=== PATIENT | female | born 1955 | race Caucasian/White ===

== ENCOUNTER 2017-11-28 09:16 | Day surgery (SDC) | payer MEDICARE, MEDICAID ==
[2017-11-28] MEDS ORDERED: Lactated Ringers 1,000 ML IV SCH (09:30)
[2017-11-28] MEDS ORDERED: Dexamethasone 4 MG/ML 5 ML MDV IVPUSH ONE (10:30)
[2017-11-28] MEDS ORDERED: Propofol 200 MG/20 ML SDV IV ONE (10:30)
[2017-11-28] MEDS ORDERED: Lidocaine 2% 100 MG/5 ML Syringe IVPUSH ONE (10:30)
[2017-11-28] MEDS ORDERED: Midazolam 1 MG/ML 2 ML SDV IV ONE (10:30)
[2017-11-28] MEDS ORDERED: Ondansetron 4 MG/2 ML SDV IVPUSH ONE (10:30)
[2017-11-28] MEDS ORDERED: fentaNYL 100 MCG/2 ML SDV IV ONE (10:30)
[2017-11-28] MEDS ORDERED: Lidocaine 1% 20 ML MDV INJECT ONE (10:53)
[2017-11-28] MEDS ORDERED: Bupivacaine 0.5% 30 ML SDV INJECT ONE (10:53)
--- NOTE | 2017-11-28 11:17 | PCM.OPNOTE ---
- General Post-Op/Procedure Note Date of Surgery/Procedure: 11/28/17 Operative Procedure(s): exicision of pilar cysts x4 Findings: 4 pilar cysts. 3-1 cm diameter 1-0.5 cm in diameter Pre Op Diagnosis: pilar cyst x4 Post-Op Diagnosis: 4 pilar cysts. 3-1 cm diameter. 1-0.5 cm in diameter Anesthesia Technique: Local (1% lido with epi/0.5% buvipicaine 7 ml), MAC Primary Surgeon: Rao Galaviz Anesthesia Provider: Poncho Wilks Pathology: 4 pilar cysts. 3-1 cm diameter 1-0.5 cm in diameter Complications: None Condition: Good Free Text/Narrative:: see dictation
[2017-11-28 13:45] VITALS: BP 129/69
--- NOTE | 2017-11-28 14:40 | OR ---
DATE OF OPERATION: 11/28/2017 SURGEON: Rao Galaviz MD PROCEDURE PERFORMED: Excision of pilar or trichilemmal cysts. PREOPERATIVE DIAGNOSIS: Pilar or trichilemmal cysts x4. POSTOPERATIVE DIAGNOSIS: Pilar or trichilemmal cysts x4. INDICATIONS FOR PROCEDURE: This is a 62-year-old white female who has a history of 4 trichilemmal cysts; three of them were approximately 1 cm in diameter and one was approximately 0.5 cm. They have been causing her some discomfort. She was offered and accepted excision. We elected to perform it here in the operating room under IV sedation due to the patient's history of anxiety. DESCRIPTION OF OPERATION: After an excellent IV sedation was administered, the patient was prepped and draped in the usual sterile manner. We turned our attention to the first cyst, which was approximately 1 cm in diameter, and this was located on the right side, lateral to the midline, in posterior aspect of the frontal lobe area. The area was incised after injecting with local, and the cyst was removed. Bleeding was controlled with electrocautery. The skin was closed with avelino. Approximately 2 cm inferior and more medial, there was an additional 1 cm cyst. This was infiltrated as well and an incision was made. The cyst and contents were excised. The skin was closed with avelino. An additional 1 cm cyst was then more posterior in the parietal area, to the lateral on the right side. Again, this was roughly 1 cm in diameter. The area was infiltrated with more local. Then, the cyst was excised and passed off the field. In a similar position, on the left side of the scalp, there was a 5-mm cyst that was also infiltrated, incised, and the cyst was removed. The skin was closed with avelino. Bacitracin was applied to the wound. The patient tolerated the procedure well and was taken to Recovery in a good condition. /[id number] /MODL
== END 2017-11-28 12:19 | disposition home or self-care (01) ==
LOC: FB.SDS 09:16
PROVIDERS: ATTEND Surgery
DX: L72.12 Trichodermal cyst (principal); N18.3 Chronic kidney disease, stage 3 (moderate); H54.8 Legal blindness, as defined in USA; E03.9 Hypothyroidism, unspecified; I95.1 Orthostatic hypotension; F41.9 Anxiety disorder, unspecified; Z87.891 Personal history of nicotine dependence; Z79.84 Long term (current) use of oral hypoglycemic drugs; Z79.899 Other long term (current) drug therapy; Z88.8 Allergy status to other drugs, medicaments and biological substances; Z91.012 Allergy to eggs; Z88.1 Allergy status to other antibiotic agents; Z91.040 Latex allergy status; Z91.048 Other nonmedicinal substance allergy status
CPT/HCPCS: 00164; 11420; 11421; 82962; 88304; J1100; J2001; J2250; J2405; J2704; J3010; J3490; J7120

== ENCOUNTER 2019-11-21 21:07 | Emergency (ER) | payer MEDICARE, MEDICAID ==
--- NOTE | 2019-11-21 22:07 | EDM.PDOC ---
ED HPI GENERAL MEDICAL PROBLEM - General Stated Complaint: FEVER Time Seen by Provider: 11/21/19 22:04 Source of Information: Reports: Patient History Limitations: Reports: No Limitations - History of Present Illness INITIAL COMMENTS - FREE TEXT/NARRATIVE: Porsha is a 64 you from [facility] who complains of fever,altered mental status and a rash. the rash is to the lower extremities over a period of 1-2 days. Fever started this afternoon,and she was noted to be delirious at times. No cough or SOB. She has a h/o migraine headaches,organic brain syndrome,panhypopituitarism,seizures, and mental delay. - Related Data Allergies Allergy/AdvReac Type Severity Reaction Status Date / Time metoclopramide HCl Allergy Severe VIOLENT Verified 11/22/19 02:20 [From Reglan] cephalexin monohydrate Allergy Unknown UNKNOWN Verified 11/22/19 02:20 [From Keflex] clobetasol Allergy Unknown Wheezing Verified 11/22/19 02:20 droperidol Allergy Unknown Leg Cramps Verified 11/22/19 02:20 hydroxyzine HCl Allergy Unknown Agitation Verified 11/22/19 02:20 [From Vistaril] hydroxyzine pamoate Allergy Unknown Agitation Verified 11/22/19 02:20 [From Vistaril] naproxen sodium Allergy Unknown Agitation Verified 11/22/19 02:20 [From Anaprox] latex AdvReac Mild Rash Verified 11/22/19 02:20 diphenhydramine HCl AdvReac Unknown Agitation Verified 11/22/19 02:20 [From Benadryl] bandaids Allergy Unknown Rash Uncoded 11/22/19 02:20 eggs Allergy Unknown Nausea and Uncoded 11/22/19 02:20 Vomiting Home Meds: Home Meds ARIPiprazole [Abilify] 20 mg PO DAILY 12/23/12 [History] Cyanocobalamin (Vitamin B12) [Vitamin B12] 250 mcg PO DAILY 12/23/12 [History] Ferrous Sulfate 325 mg PO DAILY 12/23/12 [History] Hydrocortisone [Cortef] 10 mg PO ACBREAKFAST 12/23/12 [History] Hydrocortisone [Cortef] 15 mg PO ACLUNCH 12/23/12 [History] Mirtazapine [Remeron] 45 mg PO BEDTIME 12/23/12 [History] Multivitamin with Minerals [Multiple Vitamin] 1 tab PO DAILY 12/23/12 [History] Potassium Chloride 20 meq PO QID 12/23/12 [History] calcitrioL [Rocaltrol] 0.25 mcg PO DAILY 12/23/12 [History] carBAMazepine [TEGretol XR] 400 mg PO ACBREAKFAST 12/23/12 [History] clonazePAM [Clonazepam] 1.0 mg PO BEDTIME 12/23/12 [History] Carboxymethylcellulose Sodium [Refresh Tears 0.5%] 1 drop EYEBOTH BID 07/15/13 [History] Cholecalciferol (Vitamin D3) [Vitamin D3] 4,000 units PO DAILY 07/15/13 [History] Topiramate [Topamax] 100 mg PO BEDTIME 07/15/13 [History] Ibuprofen 400 mg PO Q6H PRN 04/10/14 [History] fentaNYL [Duragesic] 12 mcg TRDERM Q72H 15 Days patch 04/13/14 [Rx] Meclizine HCl 12.5 mg PO TID PRN 08/18/14 [History] Rizatriptan [Maxalt FAMILY COUNSELOR] 10 mg PO ASDIRECTED PRN 08/18/14 [History] Aspirin [Adult Low Dose Aspirin EC] 81 mg PO DAILY 09/22/15 [History] Levothyroxine 125 mcg PO ACBREAKFAST 09/22/15 [History] carBAMazepine [TEGretol XR] 200 mg PO 1200 11/27/17 [History] Acetaminophen [Tylenol Extra Strength] 500 mg PO Q6H PRN 11/21/19 [History] Glimepiride [Amaryl] 2 mg PO DAILY 11/21/19 [History] Magnesium Hydroxide [Milk of Magnesia] 30 ml PO DAILY PRN 11/21/19 [History] atorvaSTATin [Lipitor] 10 mg PO DAILY 11/21/19 [History] Albuterol Sulfate [Albuterol Sulfate Hfa] 2 puff IH Q4H PRN 11/22/19 [History] Fluticasone Propionate [Flonase Allergy Relief] 1 spray NASBOTH BID 11/22/19 [Hi story] Furosemide [Lasix] 20 mg PO BID 11/22/19 [History] Gabapentin [Neurontin] 100 mg PO TID 11/22/19 [History] Ondansetron [Zofran ODT] 4 mg PO QID 11/22/19 [History] Triamcinolone Acetonide [Triamcinolone Acetonide 0.1% Oint] 1 applic TOP ASDIRECTED PRN 11/22/19 [History] metFORMIN HCl [Fortamet] 1,000 mg PO DAILY 11/22/19 [History] polyethylene glycoL 3350 [MiraLAX] 17 gm PO DAILY 11/22/19 [History] Past Medical History HEENT History: Reports: Cataract, Impaired Vision, Other (See Below) Other HEENT History: ambyyopia, presbyopia,peripheral vertigo unidentified ear wears glasses, 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; LEGALLY BLIND IN RIGHT EYE Cardiovascular History: Reports: Arrhythmia, Blood Clots/VTE/DVT, Other (See Below) Other Cardiovascular History: bradycardia, edema, orthostatic hypotension Respiratory History: Reports: None Gastrointestinal History: Reports: Chronic Diarrhea, Colon Polyp, Other (See Below) Other Gastrointestinal History: VITAMIN B 12 DEFICIENCY, IRON DEFICIENCY, VITAMIN D DEFICIENCY; POST SMALL BOWEL SURGERY; CHRONIC DIARRHEA, LOW POTASSIUM, CHRONIC Genitourinary History: Reports: Renal Disease, Other (See Below) Other Genitourinary History: kidney disease; STAGE III BOBBIN DRIER History: Reports: None Musculoskeletal History: Reports: Arthritis, Back Pain, Chronic, Osteoarthritis, Osteoporosis, Other (See Below) Other Musculoskeletal History: restless leg syndrome,arthropathy, chronic low back pain, neuropathy Neurological History: Reports: Headaches, Chronic, Migraines, Neuropathy, Diabetic, Seizure, Vertigo, Other (See Below) Other Neuro History: epilepsy, anxiety, manic disorder, vertigo, depression, HYPOPOPITUITARISM, RESTLESS LEG SYNDROME Psychiatric History: Reports: Anxiety, Bipolar, Depression, Other (See Below) Other Psychiatric History: manic episode without psychotic symptoms,mood disorder Endocrine/Metabolic History: Reports: Diabetes, Type II, Hypothyroidism, Obesity/BMI 30+, Vitamin D Deficiency, Other (See Below) Other Endocrine/Metabolic History: panhypopituitarism, thyroid disease, neuropathy, VIT B DEF Hematologic History: Reports: Anemia, B12 Deficiency, Iron Deficiency, Other (See Below) Other Hematologic History: iron deficiency anemia, hx of blood clots Immunologic History: Reports: None Oncologic (Cancer) History: Reports: None Dermatologic History: Reports: Other (See Below) Other Dermatologic History: skin disease - Infectious Disease History Infectious Disease History: Reports: Chicken Pox, Measles, Mumps - Past Surgical History Head Surgeries/Procedures: Reports: Craniotomy, Other (See Below) HEENT Surgical History: Reports: Cataract Surgery, Other (See Below) Other HEENT Surgeries/Procedures: brain surgery Cardiovascular Surgical History: Reports: None Respiratory Surgical History: Reports: None GI Surgical History: Reports: Appendectomy, Bariatric Procedure, Cholecystectomy, Colonoscopy, Small Bowel, Other (See Below) Other GI Surgeries/Procedures: small intestine surgery, stomach surgery Female Surgical History: Reports: None Endocrine Surgical History: Reports: Pituitary Tumor Resection Other Neurological Surgeries/Procedures: patient states that 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 Musculoskeletal Surgical History: Reports: Other (See Below) Other Musculoskeletal Surgeries/Procedures:: RIGHT hammer toes, RIGHT foot surgery Oncologic Surgical History: Reports: None Dermatological Surgical History: Reports: Skin Biopsy Social & Family History - Family History Family Medical History: Noncontributory - Caffeine Use Caffeine Use: Reports: Coffee ED ROS GENERAL - Review of Systems Review Of Systems: Comprehensive ROS is negative, except as noted in HPI. ED EXAM, SKIN/RASH Exam: See Below Exam Limited By: No Limitations General Appearance: Alert, WD/WN Nose: Normal Inspection Throat/Mouth: Normal Inspection Head: Atraumatic Respiratory/Chest: No Respiratory Distress, Lungs Clear Cardiovascular: Normal Peripheral Pulses, Regular Rate, Rhythm Extremities: Leg Pain, Increased Warmth, Redness Neurological: Alert, Oriented Course - Vital Signs Last Recorded V/S: Last Vital Signs Temp 99.5 F 11/21/19 23:50 Pulse Resp BP Pulse Ox - Orders/Labs/Meds Labs: Laboratory Tests 11/21/19 11/21/19 11/21/19 Range/Units 21:40 21:40 21:40 WBC 18.5 H (4.5-12.0) X10-3/uL RBC 4.94 (3.23-5.20) x10(6)uL Hgb 14.9 (11.5-15.5) g/dL Hct 46.6 D (30.0-51.3) % MCV 94.4 (80-96) fL MCH 30.2 (27.7-33.6) pg MCHC 32.0 L (32.2-35.4) g/dL RDW 12.1 (11.5-15.5) % Plt Count 191 (125-369) X10(3)uL MPV 7.3 L (7.4-10.4) fL Add Manual Diff Yes Neutrophils % (Manual) 69 (46-82) % Band Neutrophils % 12 H (0-6) % Lymphocytes % (Manual) 13 (13-37) % Monocytes % (Manual) 6 (4-12) % Sodium 138 (135-145) mmol/L Potassium 4.1 (3.5-5.3) mmol/L Chloride 101 (100-110) mmol/L Carbon Dioxide 25 (21-32) mmol/L BUN 29 H (7-18) mg/dL Creatinine 2.4 H* (0.55-1.02) mg/dL Est Cr Clr Drug Dosing TNP Estimated GFR (MDRD) 20 L (>60) BUN/Creatinine Ratio 12.1 (9-20) Glucose 87 (80-116) mg/dL Lactic Acid 5.9 H* (0.4-2.0) mmol/L Calcium 9.2 (8.6-10.2) mg/dL C-Reactive Protein (0.5-0.9) mg/dL 11/21/19 Range/Units 21:40 WBC (4.5-12.0) X10-3/uL RBC (3.23-5.20) x10(6)uL Hgb (11.5-15.5) g/dL Hct (30.0-51.3) % MCV (80-96) fL MCH (27.7-33.6) pg MCHC (32.2-35.4) g/dL RDW (11.5-15.5) % Plt Count (125-369) X10(3)uL MPV (7.4-10.4) fL Add Manual Diff Neutrophils % (Manual) (46-82) % Band Neutrophils % (0-6) % Lymphocytes % (Manual) (13-37) % Monocytes % (Manual) (4-12) % Sodium (135-145) mmol/L Potassium (3.5-5.3) mmol/L Chloride (100-110) mmol/L Carbon Dioxide (21-32) mmol/L BUN (7-18) mg/dL Creatinine (0.55-1.02) mg/dL Est Cr Clr Drug Dosing Estimated GFR (MDRD) (>60) BUN/Creatinine Ratio (9-20) Glucose (80-116) mg/dL Lactic Acid (0.4-2.0) mmol/L Calcium (8.6-10.2) mg/dL C-Reactive Protein 46.9 H* (0.5-0.9) mg/dL Meds: Medications Discontinued Medications Generic Name Dose Route Start Last Admin Trade Name Freq PRN Reason Stop Dose Admin Ceftriaxone Sodium 1 gm 11/21/19 23:28 11/22/19 00:30 Rocephin IM 11/21/19 23:29 Not Given ONETIME ONE Ceftriaxone Sodium 1 gm 11/21/19 23:28 11/21/19 23:45 Rocephin IVPUSH 11/21/19 23:29 1 gm ONETIME ONE Administration Sodium Chloride 1,000 mls @ 500 mls/hr 11/21/19 23:28 11/21/19 23:35 Normal Saline IV 500 mls/hr ASDIRECTED EPI Administration Ceftriaxone Sodium 1 gm/ 50 mls @ 200 mls/hr 11/21/19 23:28 11/22/19 00:30 Sodium Chloride IV 11/21/19 23:42 Not Given ONETIME ONE Departure - Departure Time of Disposition: 20:17 Disposition: DC/Tfer to Acute Hospital 02 Condition: Good, Fair Clinical Impression: Cellulitis - Discharge Information Referrals: Francisco Lock MD [Primary Care Provider] - Forms: ED Department Discharge - Problem List & Annotations (1) Cellulitis SNOMED Code(s): 321404430 Code(s): L03.90 - CELLULITIS, UNSPECIFIED Status: Acute Qualifiers: Site of cellulitis: extremity Laterality: unspecified laterality (2) Sepsis SNOMED Code(s): 71417021 Code(s): A41.9 - SEPSIS, UNSPECIFIED ORGANISM Status: Acute (3) Sepsis associated hypotension SNOMED Code(s): 23018807 Code(s): A41.9 - SEPSIS, UNSPECIFIED ORGANISM; I95.9 - HYPOTENSION, UNSPECIFIED Status: Acute - Problem List Review Problem List Initiated/Reviewed/Updated: Yes - Assessment/Plan Plan: StaRTED ivf, Rocephin and transferred to [facility].
[2019-11-21] MEDS ORDERED: cefTRIAXone 1 GM Vial IM ONE (23:28)
[2019-11-21] MEDS ORDERED: cefTRIAXone 1 GM Vial IVPUSH ONE (23:28)
[2019-11-21] MEDS ORDERED: cefTRIAXone 1 GM in Sodium Chloride 0.9% 50 ML IV ONE (23:28)
[2019-11-21] MEDS ORDERED: Sodium Chloride 0.9% 1,000 ML IV SCH (23:28)
== END 2019-11-22 00:10 ==
LOC: FB.ED 21:07
DX: L03.115 Cellulitis of right lower limb (principal); L03.116 Cellulitis of left lower limb; F41.9 Anxiety disorder, unspecified; F31.9 Bipolar disorder, unspecified; E11.40 Type 2 diabetes mellitus with diabetic neuropathy, unspecified; E03.9 Hypothyroidism, unspecified; D50.9 Iron deficiency anemia, unspecified; E66.9 Obesity, unspecified; R41.82 Altered mental status, unspecified; Z88.8 Allergy status to other drugs, medicaments and biological substances; Z88.1 Allergy status to other antibiotic agents; Z91.040 Latex allergy status; Z91.048 Other nonmedicinal substance allergy status; Z91.012 Allergy to eggs; Z79.899 Other long term (current) drug therapy; Z79.82 Long term (current) use of aspirin; M19.90 Unspecified osteoarthritis, unspecified site; Z79.84 Long term (current) use of oral hypoglycemic drugs
CPT/HCPCS: 36415; 71045; 80048; 83605; 85025; 86140; 87040; 96361; 96374; 99285; J0696; J7030; 71046

== ENCOUNTER 2021-01-12 18:30 | Observation (INO) | payer MEDICARE, MEDICAID ==
[2021-01-12] MEDS ORDERED: Sodium Chloride 0.9% 10 ML Syringe FLUSH PRN (18:44)
[2021-01-12] MEDS ORDERED: Sodium Chloride 0.9% 1,000 ML IV SCH (19:00)
[2021-01-12] MEDS ORDERED: Levofloxacin/Dextrose 5%-Water 500 MG in Premix Bag 1 BAG IV ONE (19:37)
[2021-01-12] MEDS ORDERED: Acetaminophen 325 MG Tab PO PRN (19:46)
[2021-01-12] MEDS: Sodium Chloride 0.9% 1,000 ML IV SCH (21:00)
[2021-01-12] MEDS: Clindamycin in 0.9 % Sod Chlor 600 MG in Premix Bag 1 BAG IV SCH ×2 (21:23)
[2021-01-13] MEDS: Sodium Chloride 0.9% 1,000 ML IV SCH (05:30)
[2021-01-13] MEDS: Clindamycin in 0.9 % Sod Chlor 600 MG in Premix Bag 1 BAG IV SCH ×2 (05:32)
--- NOTE | 2021-01-13 05:50 | ER ---
DATE SEEN: 01/12/2021 CHIEF COMPLAINT: Altered mental status. HPI: Porsha is a 65-year-old female from [facility], who presented to Dr. Phillips yesterday in the clinic with sore throat. [place] and strep were negative. She returns today with alteration of mental status, lethargy, and fatigue. She is a poor historian. 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 She did not complain of any chest pain or shortness of breath. No cough. She reportedly had a negative COVID test at the facility yesterday. REVIEW OF SYSTEMS: All other systems were noncontributory. MEDICATIONS: Reviewed. She is on Duragesic patch for chronic pain among other medications. Please see the medication list. ALLERGIES: Also reviewed. PHYSICAL EXAMINATION: VITAL SIGNS: She is lying comfortably in the examination bed. Temp 99.6, pulse is 95. Oxygenation is normal at 92% on room air. Blood pressure is 146/55. ENT: Negative. NECK: Supple. CHEST: Clear. CARDIOVASCULAR: Normal. ABDOMEN: Soft and benign. LABORATORY DATA: Lactic acid 3.9, troponin 10.8. From the clinic, white cell count was . UA met the criteria for culture. CT of the head is pending. IMPRESSION: 1. Altered mental status. 2. History of panhypopituitarism. 3. Diabetes mellitus. 4. Chronic pain, on long-term narcotics. 5. Bacteriuria, question sepsis or urinary tract infection. 6. Acute kidney injury with a creatinine 1.5, baseline 0.7. PLAN: 1. Admit for IV fluids. 2. Start IV Levaquin 1 time dose. Pharmacy to adjust the dose tomorrow. 3. I elected to discontinue the Duragesic patch to see if her mentation improves. 4. She will also get IV fluids overnight. /[id number] [place]/MODL
[2021-01-13] MEDS ORDERED: Potassium Chloride 20 MEQ in Premix Bag 1 BAG IV ONE (08:34)
[2021-01-13] MEDS ORDERED: Dextrose 5% in Water 1,000 ML IV SCH (08:45)
[2021-01-13] MEDS ORDERED: Potassium Chloride 10 MEQ Tab.ER PO SCH (09:00)
[2021-01-13] MEDS ORDERED: Nitrofurantoin Monohydrate/Macrocrystalline 100 MG Cap PO SCH (09:00)
[2021-01-13] MEDS ORDERED: Albuterol/Ipratropium 3.0-0.5 MG/3 ML Neb Soln NEB PRN (10:23)
[2021-01-13] MEDS: Dextrose 5% in Water 1,000 ML IV SCH ×2 (10:36→20:37)
[2021-01-13] MEDS: ARIPIPRAZOLE 20 MG PO SCH (11:51)
[2021-01-13] MEDS: Calcitriol 0.25 MCG Cap *PTOM PO SCH (11:52)
[2021-01-13] MEDS: CARBAMAZEPINE 200 MG PO SCH ×2 (11:52→16:52)
[2021-01-13] MEDS: Furosemide 20 MG Tab *PTOM PO SCH ×2 (11:53→16:54)
[2021-01-13] MEDS: HYDROCORTISONE 10 MG PO SCH ×2 (11:53→16:53)
[2021-01-13] MEDS: DAPAGLIFLOZIN PROPANEDIOL 5 MG PO SCH (11:53)
[2021-01-13] MEDS: Doxycycline 100 MG Tab PO SCH ×2 (11:58→20:49)
--- NOTE | 2021-01-13 12:44 | PCM.HP.2 ---
H&P History of Present Illness - General Date of Service: 01/13/21 Admit Problem/Dx: Admission Diagnosis/Problem Admission Diagnosis/Problem Altered mental status Source of Information: Patient, Old Records, Provider - History of Present Illness Initial Comments - Free Text/Narative: Porsha Borges" was seen in clinic for sore throat, fatigue, lethargy. Complaint of cough but no shortness of breath or chest pain. No fever, chills, nausea, vomiting, diarrhea. No dysuria, frequency or hematuria. Mitchell and strep were negative in clinic. WBC 15.8, Hgb 18.0, Plts 133. Na 149, K 4.9, Cl 110, Alkaline phosphatase 151, Cr 1.52, BUN 19. UA showed 500 glu, Negative nitrite, Small leukocyte esterase, 0-5 WBC, negative blood/RBC, occ bacteria. Reflex culture was not done because it did not met criteria. Lactic acid was 3.9 in ER. Baseline Cr 0.7 per [facility] chart. She was more lethargic confused when came in. 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 More confused in ER. - Related Data Allergies/Adverse Reactions: Allergies Allergy/AdvReac Type Severity Reaction Status Date / Time metoclopramide HCl Allergy Severe VIOLENT Verified 01/12/21 19:09 [From Reglan] cephalexin monohydrate Allergy Unknown UNKNOWN Verified 01/12/21 19:09 [From Keflex] clobetasol Allergy Unknown Wheezing Verified 01/12/21 19:09 droperidol Allergy Unknown Leg Cramps Verified 01/12/21 19:09 hydroxyzine HCl Allergy Unknown Agitation Verified 01/12/21 19:09 [From Vistaril] hydroxyzine pamoate Allergy Unknown Agitation Verified 01/12/21 19:09 [From Vistaril] naproxen sodium Allergy Unknown Agitation Verified 01/12/21 19:09 [From Anaprox] levofloxacin [From Levaquin] Allergy Rash Verified 01/12/21 21:10 latex AdvReac Mild Rash Verified 01/12/21 19:09 diphenhydramine HCl AdvReac Unknown Agitation Verified 01/12/21 19:09 [From Benadryl] bandaids Allergy Unknown Rash Uncoded 01/12/21 19:09 eggs Allergy Unknown Nausea and Uncoded 01/12/21 19:09 Vomiting Home Medications: Home Meds ARIPiprazole [Abilify] 20 mg PO DAILY 12/23/12 [History] Cyanocobalamin (Vitamin B12) [Vitamin B12] 250 mcg PO DAILY 12/23/12 [History] Ferrous Sulfate 325 mg PO Q72H 12/23/12 [History] Hydrocortisone [Cortef] 10 mg PO ACBREAKFAST 12/23/12 [History] Hydrocortisone [Cortef] 15 mg PO ACLUNCH 12/23/12 [History] Mirtazapine [Remeron] 45 mg PO BEDTIME 12/23/12 [History] Multivitamin with Minerals [Multiple Vitamin] 1 tab PO DAILY 12/23/12 [History] Potassium Chloride 20 meq PO DAILY 12/23/12 [History] calcitrioL [Rocaltrol] 0.25 mcg PO DAILY 12/23/12 [History] carBAMazepine [TEGretol XR] 400 mg PO ACBREAKFAST 12/23/12 [History] Cholecalciferol (Vitamin D3) [Vitamin D3] 2,000 units PO DAILY 07/15/13 [Histo ry] Topiramate [Topamax] 100 mg PO BEDTIME 07/15/13 [History] fentaNYL [Duragesic] 12 mcg TRDERM Q72H 15 Days patch 04/13/14 [Rx] Meclizine HCl 12.5 mg PO TID PRN 08/18/14 [History] Aspirin [Adult Low Dose Aspirin EC] 81 mg PO DAILY 09/22/15 [History] Levothyroxine 125 mcg PO BEDTIME 09/22/15 [History] carBAMazepine [TEGretol XR] 200 mg PO 1200 11/27/17 [History] Acetaminophen [Tylenol Extra Strength] 500 mg PO Q6H PRN 11/21/19 [History] atorvaSTATin [Lipitor] 10 mg PO DAILY 11/21/19 [History] Albuterol Sulfate [Albuterol Sulfate Hfa] 2 puff IH Q4H PRN 11/22/19 [History] Fluticasone Propionate [Flonase Allergy Relief] 1 spray NASBOTH BID PRN 11/22/19 [History] Furosemide [Lasix] 20 mg PO BID@,12 11/22/19 [History] Gabapentin [Neurontin] 200 mg PO TID 11/22/19 [History] Triamcinolone Acetonide [Triamcinolone Acetonide 0.1% Oint] 1 applic TOP ASDIRECTED PRN 11/22/19 [History] metFORMIN HCl [Fortamet] 1,000 mg PO BIDMEALS 11/22/19 [History] Clotrimazole [Clotrimazole 1%] 1 applic TOP BID PRN 01/13/21 [History] Dapagliflozin Propanediol [Farxiga] 5 mg PO DAILY 01/13/21 [History] Loperamide [Imodium] 2 mg PO QID PRN 01/13/21 [History] Mag Hydrox/Aluminum Hyd/Simeth [Mylanta Maximum Strength Liq] 10 ml PO QID PRN 01/13/21 [History] Methyl Salicylate/Menthol [Icy Hot Stick] 1 applic TOP ASDIRECTED PRN 01/13/21 [History] Polyvinyl Alcohol/Povidone/Pf [Refresh Classic Eye Drops] 1 drop EYEBOTH BID 01/13/21 [History] Past Medical History HEENT History: Reports: Cataract, Impaired Vision, Other (See Below) Other HEENT History: ambyyopia, presbyopia,peripheral vertigo unidentified ear wears glasses, 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; LEGALLY BLIND IN RIGHT EYE Cardiovascular History: Reports: Arrhythmia, Blood Clots/VTE/DVT, Other (See Below) Other Cardiovascular History: bradycardia, edema, orthostatic hypotension Respiratory History: Reports: None Gastrointestinal History: Reports: Chronic Diarrhea, Colon Polyp, Other (See Below) Other Gastrointestinal History: VITAMIN B 12 DEFICIENCY, IRON DEFICIENCY, VITAMIN D DEFICIENCY; POST SMALL BOWEL SURGERY; CHRONIC DIARRHEA, LOW POTASSIUM, CHRONIC Genitourinary History: Reports: Renal Disease, Other (See Below) Other Genitourinary History: kidney disease; STAGE III 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 Musculoskeletal History: Reports: Arthritis, Back Pain, Chronic, Osteoarthritis, Osteoporosis, Other (See Below) Other Musculoskeletal History: restless leg syndrome,arthropathy, chronic low b ack pain, neuropathy Neurological History: Reports: Headaches, Chronic, Migraines, Neuropathy, Diabetic, Seizure, Vertigo, Other (See Below) Other Neuro History: epilepsy, anxiety, manic disorder, vertigo, depression, HYPOPOPITUITARISM, RESTLESS LEG SYNDROME Psychiatric History: Reports: Anxiety, Bipolar, Depression, Other (See Below) Other Psychiatric History: manic episode without psychotic symptoms,mood disorder Endocrine/Metabolic History: Reports: Diabetes, Type II, Hypothyroidism, Obesity/BMI 30+, Vitamin D Deficiency, Other (See Below) Other Endocrine/Metabolic History: panhypopituitarism, thyroid disease, neuropathy, VIT B DEF Hematologic History: Reports: Anemia, B12 Deficiency, Iron Deficiency, Other (See Below) Other Hematologic History: iron deficiency anemia, hx of blood clots Immunologic History: Reports: None Oncologic (Cancer) History: Reports: None Dermatologic History: Reports: Other (See Below) Other Dermatologic History: skin disease - Infectious Disease History Infectious Disease History: Reports: Chicken Pox, Measles, Mumps - Past Surgical History Head Surgeries/Procedures: Reports: Craniotomy, Other (See Below) HEENT Surgical History: Reports: Cataract Surgery, Other (See Below) Other HEENT Surgeries/Procedures: brain surgery Cardiovascular Surgical History: Reports: None Respiratory Surgical History: Reports: None GI Surgical History: Reports: Appendectomy, Bariatric Procedure, Cholecystectomy, Colonoscopy, Small Bowel, Other (See Below) Other GI Surgeries/Procedures: small intestine surgery, stomach surgery Female Surgical History: Reports: None Endocrine Surgical History: Reports: Pituitary Tumor Resection Other Neurological Surgeries/Procedures: patient states that 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 Musculoskeletal Surgical History: Reports: Other (See Below) Other Musculoskeletal Surgeries/Procedures:: RIGHT hammer toes, RIGHT foot surgery Oncologic Surgical History: Reports: None Dermatological Surgical History: Reports: Skin Biopsy Social & Family History - Family History Family Medical History: No Pertinent Family History - Tobacco Use Tobacco Use Status *Q: Former Tobacco User Used Tobacco, but Quit: Yes Month/Year Tobacco Last Used: 1991 - Caffeine Use Caffeine Use: Reports: Coffee - Recreational Drug Use Recreational Drug Use: No H&P Review of Systems - Review of Systems: Review Of Systems: Comprehensive ROS is negative, except as noted in HPI. Exam - Exam Exam: See Below - Vital Signs Vital Signs: Last Vital Signs Temp 97.8 F 01/13/21 08:00 Pulse 78 01/13/21 08:00 Resp 16 01/13/21 08:00 BP 108/60 01/13/21 08:00 Pulse Ox 95 01/13/21 08:00 Weight: 165 lb 3.2 oz - Exam General: Alert, Oriented, Cooperative. No: Mild Distress HEENT: PERRLA, EOMI, Hearing Intact, Mucosa Moist & [place]. No: Posterior Pharynx Clear (erythematous) Neck: Supple, Trachea Midline Lungs: Clear to Auscultation, Normal Respiratory Effort, Rhonchi (LLL), Wheezing (throughout) Cardiovascular: Regular Rate, Regular Rhythm GI/Abdominal Exam: Normal Bowel Sounds, Soft, Non-Tender, No Distention (Female) Exam: Deferred Rectal (Female) Exam: Deferred Extremities: No Pedal Edema, Normal Capillary Refill Peripheral Pulses: 2+: Radial (L), Radial (R) Skin: Warm, Dry, Intact Neurological: Cranial Nerves Intact, Normal Speech, Normal Tone Psychiatric: No: Normal Affect (flat affect) - Patient Data Lab Results Last 24 hrs: Laboratory Results - last 24 hr 01/12/21 01/12/21 01/12/21 Range/Units 18:45 18:45 18:45 WBC (3.0-10.3) x10-3/uL RBC (3.60-5.20) x10(6)uL Hgb (11.4-15.5) g/dL Hct (34.2-48.2) % MCV (76.7-100.5) fL MCH (23.9-33.9) pg MCHC (31.9-34.8) g/dL RDW (12.3-16.5) % Plt Count (151-488) x10(3)uL MPV (7.1-12.4) fL Neut % (Auto) (30.8-76.2) % Lymph % (Auto) (18.4-52.1) % Mitchell % (Auto) (4.4-15.7) % Eos % (Auto) (0.6-8.1) % Baso % (Auto) (0.2-1.5) % Neut # (Auto) (1.5-6.3) x10-3/uL Lymph # (Auto) (1.0-4.4) x10-3/uL Mitchell # (Auto) (0.3-1.0) x10-3/uL Eos # (Auto) (0.0-0.8) x10-3/uL Baso # (Auto) (0.0-0.1) x10-3/uL Sodium (135-145) mmol/L Potassium (3.5-5.3) mmol/L Chloride (100-110) mmol/L Carbon Dioxide (21-32) mmol/L BUN (7-18) mg/dL Creatinine (0.55-1.02) mg/dL Est Cr Clr Drug Dosing mL/min Estimated GFR (MDRD) (>60) BUN/Creatinine Ratio (9-20) Glucose (80-116) mg/dL POC Glucose (80-116) mg/dL Lactic Acid 3.9 H* (0.4-2.0) mmol/L Calcium (8.6-10.2) mg/dL Total Bilirubin (0.1-1.3) mg/dL AST (5-25) IU/L ALT (12-36) U/L Alkaline Phosphatase (56-112) IU/L Troponin I 10.8 (4.0-60.3) pg/mL C-Reactive Protein 50.5 H* (0.5-0.9) mg/dL Total Protein (6.0-8.0) g/dL Albumin (3.2-4.6) g/dL Globulin g/dL Albumin/Globulin Ratio 01/12/21 01/12/21 01/13/21 Range/Units 20:17 22:15 05:33 WBC 10.5 H (3.0-10.3) x10-3/uL RBC 4.56 (3.60-5.20) x10(6)uL Hgb 14.3 (11.4-15.5) g/dL Hct 43.7 (34.2-48.2) % MCV 95.8 (76.7-100.5) fL MCH 31.5 (23.9-33.9) pg MCHC 32.9 (31.9-34.8) g/dL RDW 13.4 (12.3-16.5) % Plt Count 223 (151-488) x10(3)uL MPV 7.6 (7.1-12.4) fL Neut % (Auto) 68.8 (30.8-76.2) % Lymph % (Auto) 21.9 (18.4-52.1) % Mitchell % (Auto) 7.7 (4.4-15.7) % Eos % (Auto) 1.3 (0.6-8.1) % Baso % (Auto) 0.3 (0.2-1.5) % Neut # (Auto) 7.2 H (1.5-6.3) x10-3/uL Lymph # (Auto) 2.3 (1.0-4.4) x10-3/uL Mitchell # (Auto) 0.8 (0.3-1.0) x10-3/uL Eos # (Auto) 0.1 (0.0-0.8) x10-3/uL Baso # (Auto) 0.0 (0.0-0.1) x10-3/uL Sodium (135-145) mmol/L Potassium (3.5-5.3) mmol/L Chloride (100-110) mmol/L Carbon Dioxide (21-32) mmol/L BUN (7-18) mg/dL Creatinine (0.55-1.02) mg/dL Est Cr Clr Drug Dosing mL/min Estimated GFR (MDRD) (>60) BUN/Creatinine Ratio (9-20) Glucose (80-116) mg/dL POC Glucose 145 H (80-116) mg/dL Lactic Acid 2.2 H* (0.4-2.0) mmol/L Calcium (8.6-10.2) mg/dL Total Bilirubin (0.1-1.3) mg/dL AST (5-25) IU/L ALT (12-36) U/L Alkaline Phosphatase (56-112) IU/L Troponin I (4.0-60.3) pg/mL C-Reactive Protein (0.5-0.9) mg/dL Total Protein (6.0-8.0) g/dL Albumin (3.2-4.6) g/dL Globulin g/dL Albumin/Globulin Ratio 01/13/21 01/13/21 Range/Units 05:33 05:33 WBC (3.0-10.3) x10-3/uL RBC (3.60-5.20) x10(6)uL Hgb (11.4-15.5) g/dL Hct (34.2-48.2) % MCV (76.7-100.5) fL MCH (23.9-33.9) pg MCHC (31.9-34.8) g/dL RDW (12.3-16.5) % Plt Count (151-488) x10(3)uL MPV (7.1-12.4) fL Neut % (Auto) (30.8-76.2) % Lymph % (Auto) (18.4-52.1) % Mitchell % (Auto) (4.4-15.7) % Eos % (Auto) (0.6-8.1) % Baso % (Auto) (0.2-1.5) % Neut # (Auto) (1.5-6.3) x10-3/uL Lymph # (Auto) (1.0-4.4) x10-3/uL Mitchell # (Auto) (0.3-1.0) x10-3/uL Eos # (Auto) (0.0-0.8) x10-3/uL Baso # (Auto) (0.0-0.1) x10-3/uL Sodium 153 H D (135-145) mmol/L Potassium 3.3 L (3.5-5.3) mmol/L Chloride 118 H* D (100-110) mmol/L Carbon Dioxide 25 (21-32) mmol/L BUN 21 H (7-18) mg/dL Creatinine 1.3 H (0.55-1.02) mg/dL Est Cr Clr Drug Dosing 40.39 mL/min Estimated GFR (MDRD) 41 L (>60) BUN/Creatinine Ratio 16.2 (9-20) Glucose 124 H (80-116) mg/dL POC Glucose (80-116) mg/dL Lactic Acid 1.1 (0.4-2.0) mmol/L Calcium 7.6 L (8.6-10.2) mg/dL Total Bilirubin 0.4 (0.1-1.3) mg/dL AST 11 (5-25) IU/L ALT 18 (12-36) U/L Alkaline Phosphatase 110 (56-112) IU/L Troponin I (4.0-60.3) pg/mL C-Reactive Protein (0.5-0.9) mg/dL Total Protein 5.7 L (6.0-8.0) g/dL Albumin 2.0 L (3.2-4.6) g/dL Globulin 3.7 g/dL Albumin/Globulin Ratio 0.5 Labs from [facility]: WBC 15.8, Hgb 18.0, Plts 133. Na 149, K 4.9, Cl 110, Alkaline phosphatase 151, Cr 1.52, BUN 19. UA showed 500 glu, Negative nitrite, Small leukocyte esterase, 0-5 WBC, negative blood/RBC, occ bacteria. Reflex culture was not done because it did not met criteria. Result Diagrams: 01/13/21 05:33 01/13/21 05:33 [place] Results Last 24 hrs: Microbiology 01/12/21 19:27 Influenza Type A Antigen Screen - Final Nasopharyngeal Swab NEGATIVE INFLUENZA A VIRUS AG REFERENCE RANGE: NEGATIVE Influenza Type B Antigen Screen - Final NEGATIVE INFLUENZA B VIRUS AG REFERENCE RANGE: NEGATIVE Sepsis Event Note - Evaluation Sepsis Screening Result: Possible Sepsis Risk - Focused Exam Vital Signs: Vital Signs Temp Pulse Resp BP Pulse Ox 01/13/21 08:00 97.8 F 78 16 108/60 95 01/13/21 04:07 98.8 F 77 16 117/50 L 100 *Q Meaningful Use (ADM) - VTE *Q VTE Mechanical Contraindications *Q: At Risk for Falls - VTE Risk Assess *Q Each Risk Factor Represents 1 Point: None Total Score 1 Point Risk Factors: 0 Each Risk Factor Represents 2 Points: Age 60 - 74 Years Total Score 2 Point Risk Factors: 2 Each Risk Factor Represents 3 Points: None Total Score 3 Point Risk Factors: 0 Each Risk Factor Represents 5 Points: None Total Score 5 Point Risk Factors: 0 Venous Thromboembolism Risk Factor Score *Q: 2 - Problem List (1) Leukocytosis SNOMED Code(s): 613118797, 554743233 ICD Code: D72.829 - ELEVATED WHITE BLOOD CELL COUNT, UNSPECIFIED Status: Acute Current Visit: Yes (2) Dehydration with hypernatremia SNOMED Code(s): 595238671 ICD Code: E86.0 - DEHYDRATION; E87.0 - HYPEROSMOLALITY AND HYPERNATREMIA Status: Acute Current Visit: Yes (3) Acute kidney injury SNOMED Code(s): 87258155, 96175072 ICD Code: N17.9 - ACUTE KIDNEY FAILURE, UNSPECIFIED Status: Acute Current Visit: Yes (4) Altered mental status SNOMED Code(s): 044678831 ICD Code: R41.82 - ALTERED MENTAL STATUS, UNSPECIFIED Status: Resolved Current Visit: Yes (5) Hypokalemia SNOMED Code(s): 83715611 ICD Code: E87.6 - HYPOKALEMIA Status: Acute Current Visit: No (6) Wheezing SNOMED Code(s): 58498333 ICD Code: R06.2 - WHEEZING Status: Acute Current Visit: No Problem List Initiated/Reviewed/Updated: Yes Orders Last 24hrs: Active Orders 24 hr Category Date Time Status Patient Status [ADT] Routine ADT 01/12/21 19:46 Active Blood Glucose Check, Bedside [RC] 07,12,17 Care 01/12/21 19:46 Active Height and Weight [RC] 06 Care 01/12/21 19:46 Active Intake and Output [RC] 06,14,22 Care 01/12/21 19:47 Active Oxygen Therapy [RC] .PRN Care 01/12/21 19:46 Active RT Aerosol Therapy [RC] ASDIRECTED Care 01/13/21 10:24 Active Up With Assistance [RC] .PRN Care 01/12/21 19:46 Active VTE/DVT Education [RC] DAILY Care 01/12/21 19:46 Active Vital Signs [RC] 04,08,12,16,20,00 Care 01/12/21 19:46 Active CXR [Chest 1V Frontal] [CR] Routine Exams 01/13/21 09:33 Taken Head wo Cont [CT] Stat Exams 01/12/21 19:35 Taken BASIC METABOLIC PANEL,BMP [CHEM] Routine Lab 01/14/21 06:00 Ordered CBC WITH AUTO DIFF [HEME] Routine Lab 01/14/21 06:00 Ordered CULTURE BLOOD [BC] Urgent Lab 01/12/21 18:30 Received CULTURE BLOOD [BC] Urgent Lab 01/12/21 18:45 Received ARIPiprazole [Abilify] Med 01/13/21 10:30 Active 20 mg PO DAILY Acetaminophen [TylenoL] Med 01/12/21 19:46 Active 650 mg PO Q4H PRN Albuterol/Ipratropium [DuoNeb 3.0-0.5 MG/3 ML] Med 01/13/21 10:23 Active 3 ml NEB Q4H PRN Dapagliflozin Propanediol [Farxiga] Med 01/13/21 11:30 Active 5 mg PO DAILY Dextrose 5% in Water 1,000 ml Med 01/13/21 09:00 Active IV ASDIRECTED Doxycycline [Vibra-Tabs] Med 01/13/21 10:30 Active 100 mg PO BID Furosemide [Lasix] Med 01/13/21 11:15 Active 20 mg PO BID@,12 Gabapentin [Neurontin] Med 01/13/21 14:00 Active 200 mg PO TID Hydrocortisone [Cortef] Med 01/13/21 11:00 Active 10 mg PO ACBREAKFAST Hydrocortisone [Cortef] Med 01/13/21 16:00 Active 15 mg PO ACLUNCH Levothyroxine Med 01/13/21 21:00 Active 125 mcg PO BEDTIME Mirtazapine [Remeron] Med 01/13/21 21:00 Active 45 mg PO BEDTIME Potassium Chloride [Klor-Con M20] Med 01/13/21 16:00 Active 20 meq PO DAILY Sodium Chloride 0.9% [Saline Flush] Med 01/12/21 18:44 Active 10 ml FLUSH ASDIRECTED PRN Topiramate [Topamax] Med 01/13/21 21:00 Active 100 mg PO BEDTIME atorvaSTATin [Lipitor] Med 01/13/21 10:30 Active 10 mg PO DAILY calcitrioL [Rocaltrol] Med 01/13/21 10:30 Active 0.25 mcg PO DAILY carBAMazepine [TEGretol XR] Med 01/13/21 16:00 Active 200 mg PO 1200 carBAMazepine [TEGretol XR] Med 01/13/21 11:00 Active 400 mg PO ACBREAKFAST metFORMIN [Glucophage] Med 01/13/21 18:00 Active 1,000 mg PO BIDMEALS Blood Culture x2 Reflex Set [OM.PC] Urgent Oth 01/12/21 18:44 Ordered Isolation [COMM] Routine Oth 01/12/21 19:27 Ordered Saline Lock Insert [OM.PC] Routine Oth 01/12/21 18:44 Ordered Resuscitation Status Routine Resus Stat 01/12/21 19:46 Ordered Medication Orders Acetaminophen (Acetaminophen 325 Mg Tab) 650 mg PO Q4H PRN PRN Reason: Pain (Mild 1-3)/fever Albuterol/Ipratropium (Albuterol/Ipratropium 3.0-0.5 Mg/3 Ml Neb Soln) 3 ml NEB Q4H PRN PRN Reason: dyspnea/wheezing Atorvastatin Calcium (Atorvastatin 10 Mg Tab *Ptom) 10 mg PO DAILY [facility] Last Admin: 01/13/21 11:51 Dose: 10 mg Documented by: HORTENSIA Calcitriol (Calcitriol 0.25 Mcg Cap *Ptom) 0.25 mcg PO DAILY [facility] Last Admin: 01/13/21 11:52 Dose: 0.25 mcg Documented by: HORTENSIA Doxycycline Hyclate (Doxycycline 100 Mg Tab) 100 mg PO BID [facility] Last Admin: 01/13/21 11:58 Dose: 100 mg Documented by: HORTENSIA Furosemide (Furosemide 20 Mg Tab *Ptom) 20 mg PO BID@08,12 [facility] Last Admin: 01/13/21 11:53 Dose: 20 mg Documented by: HORTENSIA Gabapentin (Gabapentin 100 Mg Cap *Ptom) 200 mg PO TID [facility] Dextrose/Water (Dextrose 5% In Water) 1,000 mls @ 100 mls/hr IV ASDIRECTED [facility] Last Admin: 01/13/21 10:36 Dose: 100 mls/hr Documented by: HORTENSIA Levothyroxine Sodium (Levothyroxine 125 Mcg Tab *Ptom) 125 mcg PO BEDTIME [facility] Metformin HCl (Metformin 1,000 Mg Tab *Ptom) 1,000 mg PO BIDMEALS [facility] (Aripiprazole [ Abilify] 20 Mg Tablet) *Ptom 20 mg PO DAILY [facility] Last Admin: 01/13/21 11:51 Dose: 20 mg Documented by: HORTENSIA (Carbamazepine [ Tegretol Xr] 200 Mg Tab.Er) *Ptom 400 mg PO ACBREAKFAST [facility] Last Admin: 01/13/21 11:52 Dose: 400 mg Documented by: HORTENSIA (Carbamazepine [ Tegretol Xr] 200 Mg Tab.Er) *Ptom 200 mg PO 1200 [facility] (Dapagliflozin Propanediol [Farxiga ] 5 Mg Tablet) *Ptom 5 mg PO DAILY [facility] Last Admin: 01/13/21 11:53 Dose: 5 mg Documented by: HORTENSIA Non-Formulary Medication 1 Each ( Hydrocortisone [ Cortef] 10 Mg Tablet ) 15 mg PO ACLUNCH [facility] (Hydrocortisone [ Cortef] 10 Mg Tablet ) *Ptom 10 mg PO ACBREAKFAST EPI Last Admin: 01/13/21 11:53 Dose: 10 mg Documented by: HORTENSIA (Mirtazapine [ Remeron] 45 Mg Tablet) *Ptom 45 mg PO BEDTIME EPI (Topiramate [Topamax ] 100 Mg Tablet) * Ptom 100 mg PO BEDTIME EPI Potassium Chloride (Potassium Chloride 20 Meq Tab.Er *Ptom) 20 meq PO DAILY EPI Sodium Chloride (Sodium Chloride 0.9% 10 Ml Syringe) 10 ml FLUSH ASDIRECTED PRN PRN Reason: Keep Vein Open Last Admin: 01/12/21 19:03 Dose: 10 ml Documented by: SANDRA Assessment/Plan Comment:: 1. Admit for observation for Leukocytosis, ZAID, dehydration with hypernatremia, AMS. 2. Altered mental status: resolved this morning, patient was alert and answering questions today. 3. Leukocytosis: Covid & Influenza negative. WBC 10.5 today, Lactic acid trended down from 2.2 to 1.1 last night. Received 1 dose of Levofloxacin in ER, developed rash so was discontinued and changed to Clindamycin, this was discontinued this morning as UA did NOT met criteria for culture so [facility] did not set up culture. She also has not complaints of urinary symptoms. Her lungs were diminished on exam in ER but this morning rhonchi and wheezing appreciated. CXR repeated. Doxycycline 100 mg IV q12h started to cover bronchitis vs pneumonia as she has allergies to Cephalexin, Levofloxacin. BC pending. DuoNebs as needed wheezing. 4. Dehydration/Hypernatremia/ZAID: NS was stopped this morning when Na came back at 153. She is more alert but stated she doesn't/wouldn't drink much so D5W was started. Repeat labs tomorrow. 5. Hypokalemia: KCL 10 mEq given this morning, once her home medications were here, resumed her home dose of KCL 20 mEq daily. Repeat lab tomorrow. 6. Diet: Consistent carb diet. 7. Activity: up with assistance & to chair. 8. DVT prophylaxis: score 2, ambulate. 9. CODE STATUS: FULL. 10. Discharge planning: anticipate 24-48 hours to correct her labs with IV fluids and antibiotics. Anticipate going back to [facility] possibly tomorrow. - Mortality Measure Prognosis:: Poor
[2021-01-13] MEDS: Gabapentin 100 MG Cap *PTOM PO SCH ×2 (14:40→20:49)
[2021-01-13] MEDS: Potassium Chloride 20 MEQ Tab.ER *PTOM PO SCH (16:54)
[2021-01-13] MEDS: metFORMIN 1,000 MG Tab *PTOM PO SCH (18:44)
--- NOTE | 2021-01-13 19:21 | CR ---
INDICATION: Rhonchi on physical exam. CHEST, ONE VIEW: AP upright portable view of the chest 01/13/21 was compared with 11/21/19 and 04/10/14. The heart is normal in size. The mediastinum was unremarkable. Pulmonary markings are fairly similar to the previous examinations, without a definite active infiltrate or effusion. Evidence of exogenous obesity is noted. IMPRESSION: No definite acute process. MTDD
[2021-01-13] MEDS ORDERED: Levothyroxine 125 MCG Tab *PTOM PO SCH (21:00)
[2021-01-14] MEDS: CARBAMAZEPINE 200 MG PO SCH ×2 (06:36→11:23)
[2021-01-14] MEDS: HYDROCORTISONE 10 MG PO SCH ×2 (06:36→11:22)
[2021-01-14] MEDS: Dextrose 5% in Water 1,000 ML IV SCH (06:43)
[2021-01-14] MEDS: metFORMIN 1,000 MG Tab *PTOM PO SCH (08:08)
[2021-01-14] MEDS: Furosemide 20 MG Tab *PTOM PO SCH ×2 (08:09→11:22)
[2021-01-14] MEDS: Potassium Chloride 20 MEQ Tab.ER *PTOM PO SCH (08:10)
[2021-01-14] MEDS: DAPAGLIFLOZIN PROPANEDIOL 5 MG PO SCH (08:10)
[2021-01-14] MEDS: ARIPIPRAZOLE 20 MG PO SCH (08:10)
[2021-01-14] MEDS: Calcitriol 0.25 MCG Cap *PTOM PO SCH (08:11)
[2021-01-14] MEDS: Gabapentin 100 MG Cap *PTOM PO SCH (08:11)
[2021-01-14] MEDS: Doxycycline 100 MG Tab PO SCH (08:14)
[2021-01-14 08:39] VITALS: BP 125/56; PULSE 68
--- NOTE | 2021-01-14 10:03 | PCM.DCSUM1 ---
Discharge Summary - Hospital Course Diagnosis: Stroke: No - Discharge Data Discharge Date: 01/14/21 Discharge Disposition: Home, Self-Care 01 Condition: Good - Referral to Home Health Primary Care Physician: Yordy Phillips MD - Patient Instructions Diet: Usual Diet as Tolerated Activity: As Tolerated Driving: Do Not Drive Showering/Bathing: May Shower - Discharge Plan *PRESCRIPTION DRUG MONITORING PROGRAM REVIEWED*: Not Applicable *COPY OF PRESCRIPTION DRUG MONITORING REPORT IN PATIENT ROVERTO: Not Applicable Prescriptions/Med Rec: Doxycycline [Vibra-Tabs] 100 mg PO BID #17 tablet Home Medications: Home Meds ARIPiprazole [Abilify] 20 mg PO DAILY 12/23/12 [History] Cyanocobalamin (Vitamin B12) [Vitamin B12] 250 mcg PO DAILY 12/23/12 [History] Ferrous Sulfate 325 mg PO Q72H 12/23/12 [History] Hydrocortisone [Cortef] 10 mg PO ACBREAKFAST 12/23/12 [History] Hydrocortisone [Cortef] 15 mg PO ACLUNCH 12/23/12 [History] Mirtazapine [Remeron] 45 mg PO BEDTIME 12/23/12 [History] Multivitamin with Minerals [Multiple Vitamin] 1 tab PO DAILY 12/23/12 [History] Potassium Chloride 20 meq PO DAILY 12/23/12 [History] calcitrioL [Rocaltrol] 0.25 mcg PO DAILY 12/23/12 [History] carBAMazepine [TEGretol XR] 400 mg PO ACBREAKFAST 12/23/12 [History] Cholecalciferol (Vitamin D3) [Vitamin D3] 2,000 units PO DAILY 07/15/13 [History] Topiramate [Topamax] 100 mg PO BEDTIME 07/15/13 [History] Meclizine HCl 12.5 mg PO TID PRN 08/18/14 [History] Aspirin [Adult Low Dose Aspirin EC] 81 mg PO DAILY 09/22/15 [History] Levothyroxine 125 mcg PO BEDTIME 09/22/15 [History] carBAMazepine [TEGretol XR] 200 mg PO 1200 11/27/17 [History] Acetaminophen [Tylenol Extra Strength] 500 mg PO Q6H PRN 11/21/19 [History] atorvaSTATin [Lipitor] 10 mg PO DAILY 11/21/19 [History] Albuterol Sulfate [Albuterol Sulfate Hfa] 2 puff IH Q4H PRN 11/22/19 [History] Fluticasone Propionate [Flonase Allergy Relief] 1 spray NASBOTH BID PRN 11/22/19 [History] Furosemide [Lasix] 20 mg PO BID@08,12 11/22/19 [History] Gabapentin [Neurontin] 200 mg PO TID 11/22/19 [History] Triamcinolone Acetonide [Triamcinolone Acetonide 0.1% Oint] 1 applic TOP ASDIRECTED PRN 11/22/19 [History] metFORMIN HCl [Fortamet] 1,000 mg PO BIDMEALS 11/22/19 [History] Clotrimazole [Clotrimazole 1%] 1 applic TOP BID PRN 01/13/21 [History] Dapagliflozin Propanediol [Farxiga] 5 mg PO DAILY 01/13/21 [History] Loperamide [Imodium] 2 mg PO QID PRN 01/13/21 [History] Mag Hydrox/Aluminum Hyd/Simeth [Mylanta Maximum Strength Liq] 10 ml PO QID PRN 01/13/21 [History] Methyl Salicylate/Menthol [Icy Hot Stick] 1 applic TOP ASDIRECTED PRN 01/13/21 [History] Polyvinyl Alcohol/Povidone/Pf [Refresh Classic Eye Drops] 1 drop EYEBOTH BID 01/13/21 [History] Doxycycline [Vibra-Tabs] 100 mg PO BID #17 tablet 01/14/21 [Rx] Forms: ED Department Discharge Referrals: Yordy Phillips MD [Primary Care Provider] - - Discharge Summary/Plan Comment DC Time >30 min.: Yes Total # of Minutes for Discharge Time: 45 Discharge Summary/Plan Comment: Electrolytes and white blood cell counts are grossly resolved to patient's baseline. Acute kidney injury resolved to baseline. Likely had mild UTI which was well treated with 1 dose of levofloxacin followed clindamycin and by IV and then oral doxycycline. There is also a question of community-acquired pneumonia versus bronchitis. Morning the patient was able to get out of bed and stand next to the bed for the entire interview and exam with only minimal help getting out of bed. She was able to get back into bed and then out and then reposition herself and get back into bed without assistance. She states that she feels much better. Patient will be discharged back to her [facility]/home/self-care with oral doxycycline to complete a 10-day course and with her home medications restored including potassium supplement. She is instructed to follow-up with her primary care physician. Note that the patient was on a 12 mcg fentanyl patch when she came to the emergency department. The 12 fentanyl micrograms patch was removed and she has not had the fentanyl patch during her short stay here. She has not complained of any pain. She states that she feels better. She will not be restarted on the fentanyl patch. We will not mention that she does not have her fentanyl patch. If the patient begins to complain of pain we will address her pain. However, it is not unlikely that given her other, extensive medical regimen, that the fentanyl patch may have exacerbated her altered mental status. - General Info Date of Service: 01/14/21 Admission Dx/Problem (Free Text: Admission Diagnosis/Problem Admission Diagnosis/Problem Altered mental status Functional Status: Reports: Pain Controlled - Review of Systems General: Reports: Weakness HEENT: Reports: No Symptoms Pulmonary: Reports: No Symptoms Cardiovascular: Reports: No Symptoms Gastrointestinal: Reports: No Symptoms Genitourinary: Reports: No Symptoms Musculoskeletal: Reports: No Symptoms Skin: Reports: No Symptoms Neurological: Reports: Difficulty Walking, Weakness Psychiatric: Reports: No Symptoms - Patient Data Vitals - Most Recent: Last Vital Signs Temp 36.3 C 01/14/21 08:00 Pulse 68 01/14/21 08:00 Resp 16 01/14/21 08:00 BP 125/56 L 01/14/21 08:00 Pulse Ox 98 01/14/21 08:00 Weight - Most Recent: 75.438 kg I&O - Last 24 hours: Intake & Output 01/13/21 01/14/21 01/14/21 22:59 06:59 14:59 Intake Total 1101 910 Output Total 800 0 Balance 301 910 Lab Results - Last 24 hrs: Laboratory Results - last 24 hr 01/13/21 01/13/21 01/14/21 Range/Units 14:37 17:30 06:20 WBC 8.0 (3.0-10.3) x10-3/uL RBC 4.25 (3.60-5.20) x10(6)uL Hgb 13.6 (11.4-15.5) g/dL Hct 40.6 (34.2-48.2) % MCV 95.3 (76.7-100.5) fL MCH 31.9 (23.9-33.9) pg MCHC 33.4 (31.9-34.8) g/dL RDW 13.3 (12.3-16.5) % Plt Count 215 (151-488) x10(3)uL MPV 7.8 (7.1-12.4) fL Neut % (Auto) 57.4 (30.8-76.2) % Lymph % (Auto) 35.2 (18.4-52.1) % [place] % (Auto) 4.9 (4.4-15.7) % Eos % (Auto) 1.7 (0.6-8.1) % Baso % (Auto) 0.8 (0.2-1.5) % Neut # (Auto) 4.6 (1.5-6.3) x10-3/uL Lymph # (Auto) 2.8 (1.0-4.4) x10-3/uL [place] # (Auto) 0.4 (0.3-1.0) x10-3/uL Eos # (Auto) 0.1 (0.0-0.8) x10-3/uL Baso # (Auto) 0.1 (0.0-0.1) x10-3/uL Sodium (135-145) mmol/L Potassium (3.5-5.3) mmol/L Chloride (100-110) mmol/L Carbon Dioxide (21-32) mmol/L BUN (7-18) mg/dL Creatinine (0.55-1.02) mg/dL Est Cr Clr Drug Dosing mL/min Estimated GFR (MDRD) (>60) BUN/Creatinine Ratio (9-20) Glucose (80-116) mg/dL POC Glucose 159 H 189 H (80-116) mg/dL Calcium (8.6-10.2) mg/dL 01/14/21 Range/Units 06:20 WBC (3.0-10.3) x10-3/uL RBC (3.60-5.20) x10(6)uL Hgb (11.4-15.5) g/dL Hct (34.2-48.2) % MCV (76.7-100.5) fL MCH (23.9-33.9) pg MCHC (31.9-34.8) g/dL RDW (12.3-16.5) % Plt Count (151-488) x10(3)uL MPV (7.1-12.4) fL Neut % (Auto) (30.8-76.2) % Lymph % (Auto) (18.4-52.1) % [place] % (Auto) (4.4-15.7) % Eos % (Auto) (0.6-8.1) % Baso % (Auto) (0.2-1.5) % Neut # (Auto) (1.5-6.3) x10-3/uL Lymph # (Auto) (1.0-4.4) x10-3/uL [place] # (Auto) (0.3-1.0) x10-3/uL Eos # (Auto) (0.0-0.8) x10-3/uL Baso # (Auto) (0.0-0.1) x10-3/uL Sodium 141 D (135-145) mmol/L Potassium 3.1 L (3.5-5.3) mmol/L Chloride 105 D (100-110) mmol/L Carbon Dioxide 26 (21-32) mmol/L BUN 15 (7-18) mg/dL Creatinine 1.4 H (0.55-1.02) mg/dL Est Cr Clr Drug Dosing 30.23 mL/min Estimated GFR (MDRD) 38 L (>60) BUN/Creatinine Ratio 10.7 (9-20) Glucose 153 H (80-116) mg/dL POC Glucose (80-116) mg/dL Calcium 7.6 L (8.6-10.2) mg/dL KARLO Results - Last 24 hrs: Microbiology 01/12/21 18:45 Aerobic Blood Culture - Preliminary Blood - Venous - Lab Draw NO GROWTH AFTER 1 DAY Anaerobic Blood Culture - Preliminary NO GROWTH AFTER 1 DAY 01/12/21 18:30 Aerobic Blood Culture - Preliminary Blood - Venous NO GROWTH AFTER 1 DAY Anaerobic Blood Culture - Preliminary NO GROWTH AFTER 1 DAY Med Orders - Current: Current Medications Acetaminophen (Acetaminophen 325 Mg Tab) 650 mg PO Q4H PRN PRN Reason: Pain (Mild 1-3)/fever Albuterol/Ipratropium (Albuterol/Ipratropium 3.0-0.5 Mg/3 Ml Neb Soln) 3 ml NEB Q4H PRN PRN Reason: dyspnea/wheezing Last Admin: 01/13/21 16:47 Dose: 3 ml Documented by: Atorvastatin Calcium (Atorvastatin 10 Mg Tab *Ptom) 10 mg PO DAILY [facility] Last Admin: 01/14/21 08:11 Dose: 10 mg Documented by: Calcitriol (Calcitriol 0.25 Mcg Cap *Ptom) 0.25 mcg PO DAILY [facility] Last Admin: 01/14/21 08:11 Dose: 0.25 mcg Documented by: Doxycycline Hyclate (Doxycycline 100 Mg Tab) 100 mg PO BID [facility] Last Admin: 01/14/21 08:14 Dose: 100 mg Documented by: Furosemide (Furosemide 20 Mg Tab *Ptom) 20 mg PO BID@08,12 [facility] Last Admin: 01/14/21 08:09 Dose: 20 mg Documented by: Gabapentin (Gabapentin 100 Mg Cap *Ptom) 200 mg PO TID [facility] Last Admin: 01/14/21 08:11 Dose: 200 mg Documented by: Levothyroxine Sodium (Levothyroxine 125 Mcg Tab *Ptom) 125 mcg PO BEDTIME [facility] Last Admin: 01/13/21 20:49 Dose: 125 mcg Documented by: Metformin HCl (Metformin 1,000 Mg Tab *Ptom) 1,000 mg PO BIDMEALS [facility] Last Admin: 01/14/21 08:08 Dose: 1,000 mg Documented by: (Aripiprazole [ Abilify] 20 Mg Tablet) *Ptom 20 mg PO DAILY [facility] Last Admin: 01/14/21 08:10 Dose: 20 mg Documented by: (Carbamazepine [ Tegretol Xr] 200 Mg Tab.Er) *Ptom 400 mg PO ACBREAKFAST [facility] Last Admin: 01/14/21 06:36 Dose: 400 mg Documented by: (Carbamazepine [ Tegretol Xr] 200 Mg Tab.Er) *Ptom 200 mg PO 1200 [facility] Last Admin: 01/13/21 16:52 Dose: 200 mg Documented by: (Dapagliflozin Propanediol [Farxiga ] 5 Mg Tablet) *Ptom 5 mg PO DAILY [facility] Last Admin: 01/14/21 08:10 Dose: 5 mg Documented by: Non-Formulary Medication 1 Each ( Hydrocortisone [ Cortef] 10 Mg Tablet ) 15 mg PO ACLUNCH [facility] Last Admin: 01/13/21 16:53 Dose: 15 mg Documented by: (Hydrocortisone [ Cortef] 10 Mg Tablet ) *Ptom 10 mg PO ACBREAKFAST [facility] Last Admin: 01/14/21 06:36 Dose: 10 mg Documented by: (Mirtazapine [ Remeron] 45 Mg Tablet) *Ptom 45 mg PO BEDTIME [facility] Last Admin: 01/13/21 20:49 Dose: 45 mg Documented by: (Topiramate [Topamax ] 100 Mg Tablet) * Ptom 100 mg PO BEDTIME [facility] Last Admin: 01/13/21 20:49 Dose: 100 mg Documented by: Potassium Chloride (Potassium Chloride 20 Meq Tab.Er *Ptom) 20 meq PO DAILY [facility] Last Admin: 01/14/21 08:10 Dose: 20 meq Documented by: Sodium Chloride (Sodium Chloride 0.9% 10 Ml Syringe) 10 ml FLUSH ASDIRECTED PRN PRN Reason: Keep Vein Open Last Admin: 01/12/21 19:03 Dose: 10 ml Documented by: Discontinued Medications Sodium Chloride (Normal Saline) 1,000 mls @ 999 mls/hr IV ASDIRECTED [facility] Last Admin: 01/12/21 19:03 Dose: 999 mls/hr Documented by: Levofloxacin/Dextrose 500 mg/ (Premix) 100 mls @ 100 mls/hr IV ONETIME ONE Stop: 01/12/21 20:36 Last Admin: 01/12/21 19:46 Dose: 100 mls/hr Documented by: Sodium Chloride (Normal Saline) 1,000 mls @ 125 mls/hr IV ASDIRECTED [facility] Last Admin: 01/13/21 05:30 Dose: 125 mls/hr Documented by: Clindamycin/Sodium Chloride (600 mg/ Premix) 50 mls @ 150 mls/hr IV Q8H [facility] Last Admin: 01/13/21 05:32 Dose: 100 mls/hr Documented by: Potassium Chloride 20 meq/ (Premix) 100 mls @ 50 mls/hr IV ONETIME ONE Stop: 01/13/21 10:33 Last Admin: 01/13/21 17:54 Dose: Not Given Documented by: Dextrose/Water (Dextrose 5% In Water) 1,000 mls @ 100 mls/hr IV ASDIRECTED EPI Dextrose/Water (Dextrose 5% In Water) 1,000 mls @ 100 mls/hr IV ASDIRECTED EPI Last Admin: 01/14/21 06:43 Dose: 100 mls/hr Documented by: Potassium Chloride (Potassium Chloride 10 Meq Tab.Er) 10 meq PO BID EPI Last Admin: 01/13/21 10:37 Dose: 10 meq Documented by: - Exam General: Reports: Alert, Oriented, Cooperative, No Acute Distress, Other (Patient was able to get out of the bed and stand next to the bed with only minimal assistance. She was able to stand during the physical exam. She stated that she feels much better today.) HEENT: Reports: Other (Right exotropia) Neck: Reports: Supple. Denies: Lymphadenopathy Lungs: Reports: Clear to Auscultation, Normal Respiratory Effort GI/Abdominal Exam: Normal Bowel Sounds, Soft, Non-Tender Back Exam: Reports: Normal Inspection. Denies: CVA Tenderness (R), CVA Tenderness (L) Extremities: Normal Inspection, No Pedal Edema Skin: Reports: Warm, Dry Neurological: Reports: No New Focal Deficit Psy/Mental Status: Reports: Alert, Normal Affect, Normal Mood *Q Meaningful Use (DIS) - VTE *Q VTE Mechanical Contraindications *Q: At Risk for Falls
== END 2021-01-14 11:30 | disposition home or self-care (01) ==
LOC: FB.ED 18:30 → FB.MS 19:46
PROVIDERS: ADMIT Family Medicine; ATTEND Student in an Organized Health Care Education/Training Program
DX: R41.82 Altered mental status, unspecified (principal); R05 Cough; D72.829 Elevated white blood cell count, unspecified; E87.0 Hyperosmolality and hypernatremia; N17.9 Acute kidney failure, unspecified; E87.6 Hypokalemia; R06.2 Wheezing; N18.30 Chronic kidney disease, stage 3 unspecified; E11.22 Type 2 diabetes mellitus with diabetic chronic kidney disease; E03.9 Hypothyroidism, unspecified; E66.9 Obesity, unspecified; E11.40 Type 2 diabetes mellitus with diabetic neuropathy, unspecified; E55.9 Vitamin D deficiency, unspecified; G89.29 Other chronic pain; Z90.49 Acquired absence of other specified parts of digestive tract; Z98.890 Other specified postprocedural states; Z88.8 Allergy status to other drugs, medicaments and biological substances; Z91.040 Latex allergy status; Z91.012 Allergy to eggs; Z79.899 Other long term (current) drug therapy; Z87.891 Personal history of nicotine dependence; Z20.822 Contact with and (suspected) exposure to COVID-19
CPT/HCPCS: 36415; 70450; 71045; 80048; 80053; 82947; 83605; 84484; 85025; 86140; 87040; 87804; 94640; A9270; J1956; J3490; J7030; J7060; U0002; 70460; 94150; J7620-GY

== ENCOUNTER 2021-01-22 16:21 | Emergency (ER) | payer MEDICARE, MEDICAID ==
--- NOTE | 2021-01-22 16:57 | EDM.PDOC ---
ED HPI GENERAL MEDICAL PROBLEM - General Chief Complaint: General Stated Complaint: DEHYDRATION Time Seen by Provider: 01/22/21 16:35 Source of Information: Reports: Patient, Family History Limitations: Reports: No Limitations - History of Present Illness INITIAL COMMENTS - FREE TEXT/NARRATIVE: pt is being treated for UTI with Bactrim x 1 week , is here with concerns for being dehydrated, states she has chronic diarrhea, and lately recurrent nausea, has not been feeding well or drinking fluids, report feeling gen weakness, denies pain, fever chills or any other associated sx or concerns. - Related Data Allergies Allergy/AdvReac Type Severity Reaction Status Date / Time metoclopramide HCl Allergy Severe VIOLENT Verified 01/12/21 19:09 [From Reglan] cephalexin monohydrate Allergy Unknown UNKNOWN Verified 01/12/21 19:09 [From Keflex] clobetasol Allergy Unknown Wheezing Verified 01/12/21 19:09 droperidol Allergy Unknown Leg Cramps Verified 01/12/21 19:09 hydroxyzine HCl Allergy Unknown Agitation Verified 01/12/21 19:09 [From Vistaril] hydroxyzine pamoate Allergy Unknown Agitation Verified 01/12/21 19:09 [From Vistaril] naproxen sodium Allergy Unknown Agitation Verified 01/12/21 19:09 [From Anaprox] levofloxacin [From Levaquin] Allergy Rash Verified 01/12/21 21:10 latex AdvReac Mild Rash Verified 01/12/21 19:09 diphenhydramine HCl AdvReac Unknown Agitation Verified 01/12/21 19:09 [From Benadryl] bandaids Allergy Unknown Rash Uncoded 01/12/21 19:09 eggs Allergy Unknown Nausea and Uncoded 01/12/21 19:09 Vomiting Home Meds: Home Meds ARIPiprazole [Abilify] 20 mg PO DAILY 12/23/12 [History] Cyanocobalamin (Vitamin B12) [Vitamin B12] 250 mcg PO DAILY 12/23/12 [History] Ferrous Sulfate 325 mg PO Q72H 12/23/12 [History] Hydrocortisone [Cortef] 10 mg PO ACBREAKFAST 12/23/12 [History] Hydrocortisone [Cortef] 15 mg PO ACLUNCH 12/23/12 [History] Mirtazapine [Remeron] 45 mg PO BEDTIME 12/23/12 [History] Multivitamin with Minerals [Multiple Vitamin] 1 tab PO DAILY 12/23/12 [History] Potassium Chloride 20 meq PO DAILY 12/23/12 [History] calcitrioL [Rocaltrol] 0.25 mcg PO DAILY 12/23/12 [History] carBAMazepine [TEGretol XR] 400 mg PO ACBREAKFAST 12/23/12 [History] Cholecalciferol (Vitamin D3) [Vitamin D3] 2,000 units PO DAILY 07/15/13 [History] Topiramate [Topamax] 100 mg PO BEDTIME 07/15/13 [History] Meclizine HCl 12.5 mg PO TID PRN 08/18/14 [History] Aspirin [Adult Low Dose Aspirin EC] 81 mg PO DAILY 09/22/15 [History] Levothyroxine 125 mcg PO BEDTIME 09/22/15 [History] carBAMazepine [TEGretol XR] 200 mg PO 1200 11/27/17 [History] Acetaminophen [Tylenol Extra Strength] 500 mg PO Q6H PRN 11/21/19 [History] atorvaSTATin [Lipitor] 10 mg PO DAILY 11/21/19 [History] Albuterol Sulfate [Albuterol Sulfate Hfa] 2 puff IH Q4H PRN 11/22/19 [History] Fluticasone Propionate [Flonase Allergy Relief] 1 spray NASBOTH BID PRN 11/22/19 [History] Furosemide [Lasix] 20 mg PO BID@08,12 11/22/19 [History] Gabapentin [Neurontin] 200 mg PO TID 11/22/19 [History] Triamcinolone Acetonide [Triamcinolone Acetonide 0.1% Oint] 1 applic TOP ASDIRECTED PRN 11/22/19 [History] metFORMIN HCl [Fortamet] 1,000 mg PO BIDMEALS 11/22/19 [History] Clotrimazole [Clotrimazole 1%] 1 applic TOP BID PRN 01/13/21 [History] Dapagliflozin Propanediol [Farxiga] 5 mg PO DAILY 01/13/21 [History] Loperamide [Imodium] 2 mg PO QID PRN 01/13/21 [History] Mag Hydrox/Aluminum Hyd/Simeth [Mylanta Maximum Strength Liq] 10 ml PO QID PRN 01/13/21 [History] Methyl Salicylate/Menthol [Icy Hot Stick] 1 applic TOP ASDIRECTED PRN 01/13/21 [History] Polyvinyl Alcohol/Povidone/Pf [Refresh Classic Eye Drops] 1 drop EYEBOTH BID 01/13/21 [History] Doxycycline [Vibra-Tabs] 100 mg PO BID #17 tablet 01/14/21 [Rx] Past Medical History HEENT History: Reports: Cataract, Impaired Vision, Other (See Below) Other HEENT History: ambyyopia, presbyopia,peripheral vertigo unidentified ear wears glasses, 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; LEGALLY BLIND IN RIGHT EYE Cardiovascular History: Reports: Arrhythmia, Blood Clots/VTE/DVT, Other (See Below) Other Cardiovascular History: bradycardia, edema, orthostatic hypotension Respiratory History: Reports: None Gastrointestinal History: Reports: Chronic Diarrhea, Colon Polyp, Other (See Below) Other Gastrointestinal History: VITAMIN B 12 DEFICIENCY, IRON DEFICIENCY, VITAMIN D DEFICIENCY; POST SMALL BOWEL SURGERY; CHRONIC DIARRHEA, LOW POTASSIUM, CHRONIC Genitourinary History: Reports: Renal Disease, Other (See Below) Other Genitourinary History: kidney disease; STAGE III [employer] History: Reports: None Musculoskeletal History: Reports: Arthritis, Back Pain, Chronic, Osteoarthritis, Osteoporosis, Other (See Below) Other Musculoskeletal History: restless leg syndrome,arthropathy, chronic low back pain, neuropathy Neurological History: Reports: Headaches, Chronic, Migraines, Neuropathy, Diabetic, Seizure, Vertigo, Other (See Below) Other Neuro History: epilepsy, anxiety, manic disorder, vertigo, depression, HYPOPOPITUITARISM, RESTLESS LEG SYNDROME Psychiatric History: Reports: Anxiety, Bipolar, Depression, Other (See Below) Other Psychiatric History: manic episode without psychotic symptoms,mood disorder Endocrine/Metabolic History: Reports: Diabetes, Type II, Hypothyroidism, Obesity/BMI 30+, Vitamin D Deficiency, Other (See Below) Other Endocrine/Metabolic History: panhypopituitarism, thyroid disease, neuropathy, VIT B DEF Hematologic History: Reports: Anemia, B12 Deficiency, Iron Deficiency, Other (See Below) Other Hematologic History: iron deficiency anemia, hx of blood clots Immunologic History: Reports: None Oncologic (Cancer) History: Reports: None Dermatologic History: Reports: Other (See Below) Other Dermatologic History: skin disease - Infectious Disease History Infectious Disease History: Reports: Chicken Pox, Measles, Mumps - Past Surgical History Head Surgeries/Procedures: Reports: Craniotomy, Other (See Below) HEENT Surgical History: Reports: Cataract Surgery, Other (See Below) Other HEENT Surgeries/Procedures: brain surgery Cardiovascular Surgical History: Reports: None Respiratory Surgical History: Reports: None GI Surgical History: Reports: Appendectomy, Bariatric Procedure, Cholecystectomy, Colonoscopy, Small Bowel, Other (See Below) Other GI Surgeries/Procedures: small intestine surgery, stomach surgery Female Surgical History: Reports: None Endocrine Surgical History: Reports: Pituitary Tumor Resection Other Neurological Surgeries/Procedures: patient states that 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 Musculoskeletal Surgical History: Reports: Other (See Below) Other Musculoskeletal Surgeries/Procedures:: RIGHT hammer toes, RIGHT foot surgery Oncologic Surgical History: Reports: None Dermatological Surgical History: Reports: Skin Biopsy Social & Family History - Family History Family Medical History: No Pertinent Family History - Caffeine Use Caffeine Use: Reports: Coffee ED ROS GENERAL - Review of Systems Review Of Systems: See Below Constitutional: Reports: Weakness, Fatigue. Denies: Fever, Chills HEENT: Reports: No Symptoms Respiratory: Reports: No Symptoms Cardiovascular: Reports: No Symptoms GI/Abdominal: Reports: Anorexia, Diarrhea, Nausea. Denies: Black Stool, Bloody Stool, Distension, Vomiting : Reports: No Symptoms Musculoskeletal: Reports: No Symptoms Skin: Reports: No Symptoms Neurological: Reports: No Symptoms ED EXAM, GENERAL - Physical Exam Exam: See Below Exam Limited By: No Limitations General Appearance: Alert, Lethargic Eye Exam: Bilateral Eye: Normal Inspection Nose: Normal Inspection Throat/Mouth: Other (dry MM) Head: Atraumatic, Normocephalic Neck: Normal Inspection, Supple, Non-Tender Respiratory/Chest: No Respiratory Distress, Lungs Clear, Normal Breath Sounds Cardiovascular: Normal Peripheral Pulses, Regular Rate, Rhythm GI/Abdominal: Normal Bowel Sounds, Soft, Non-Tender Back Exam: Normal Inspection Extremities: Normal Inspection, Normal Range of Motion Neurological: Alert, Oriented, CN II-XII Intact Psychiatric: Flat Affect Skin Exam: Warm, Dry Course - Vital Signs Text/Narrative:: pt condition remained stable here, actually she is more alert and attentive after 1 liter of fluids, she has acute renal insufficiency/ likely pre-renal, her cr was 1.4 last month and now 2.4 . cl 120 . there is no available staff to care for pt here as inpatient, and both [facility] are in diversion, will keep pt here in ER , continue with gentle hydration and reassess in morning , pt was placed by [facility] on waiting list and we will be notified in morning if there are available beds for transfer if pt still needs it. i do suspect the reason for confusion to be both / dehydration and current use of bactrim, i will continue now with NS at 125 hr , repeat CMP in morning and decide were to go from there. pt care will be handed to Dr Combs at am shift. Dx acute renal failure. dehydration confusion. plan as indicated above. Last Recorded V/S: Last Vital Signs Temp 35.9 C L 01/22/21 16:30 Pulse 66 01/22/21 20:12 Resp 18 01/22/21 20:12 BP 144/79 H 01/22/21 20:12 Pulse Ox 97 01/22/21 20:12 - Orders/Labs/Meds Orders: Active Orders 24 hr Category Date Time Status UA W/MICROSCOPIC [URIN] Stat Lab 01/22/21 17:02 Ordered Sodium Chloride 0.9% [Normal Saline] 1,000 ml Med 01/22/21 17:02 Active IV .BOLUS Sodium Chloride 0.9% [Normal Saline] 1,000 ml Med 01/22/21 20:01 Active IV .BOLUS Medication Orders Sodium Chloride (Normal Saline) 1,000 mls @ 999 drops/hr IV .BOLUS ONE Stop: 01/23/21 08:02 Last Admin: 01/22/21 17:18 Dose: 999 drops/hr Documented by: SANDRA Sodium Chloride (Normal Saline) 1,000 mls @ 999 mls/hr IV .BOLUS ONE Stop: 01/22/21 21:01 Last Admin: 01/22/21 20:02 Dose: 999 mls/hr Documented by: SANDRA Labs: Laboratory Tests 01/22/21 01/22/21 Range/Units 19:40 19:40 WBC 13.6 H (3.0-10.3) x10-3/uL RBC 6.00 H (3.60-5.20) x10(6)uL Hgb 18.8 H D (11.4-15.5) g/dL Hct 56.7 H D (34.2-48.2) % MCV 94.5 (76.7-100.5) fL MCH 31.4 (23.9-33.9) pg MCHC 33.2 (31.9-34.8) g/dL RDW 14.3 (12.3-16.5) % Plt Count 357 (151-488) x10(3)uL MPV 7.9 (7.1-12.4) fL Neut % (Auto) 64.2 (30.8-76.2) % Lymph % (Auto) 27.5 (18.4-52.1) % [place] % (Auto) 7.3 (4.4-15.7) % Eos % (Auto) 0.6 (0.6-8.1) % Baso % (Auto) 0.4 (0.2-1.5) % Neut # (Auto) 8.8 H (1.5-6.3) x10-3/uL Lymph # (Auto) 3.7 (1.0-4.4) x10-3/uL [place] # (Auto) 1.0 (0.3-1.0) x10-3/uL Eos # (Auto) 0.1 (0.0-0.8) x10-3/uL Baso # (Auto) 0.1 (0.0-0.1) x10-3/uL Sodium 155 H D (135-145) mmol/L Potassium 3.3 L (3.5-5.3) mmol/L Chloride 120 H* D (100-110) mmol/L Carbon Dioxide 19 L (21-32) mmol/L BUN 45 H D (7-18) mg/dL Creatinine 2.4 H* (0.55-1.02) mg/dL Est Cr Clr Drug Dosing 19.33 mL/min Estimated GFR (MDRD) 20 L (>60) BUN/Creatinine Ratio 18.8 (9-20) Glucose 163 H (80-116) mg/dL Calcium 7.4 L (8.6-10.2) mg/dL Total Bilirubin 0.4 (0.1-1.3) mg/dL AST 56 H D (5-25) IU/L ALT 49 H D (12-36) U/L Alkaline Phosphatase 162 H (56-112) IU/L Total Protein 6.1 (6.0-8.0) g/dL Albumin 2.4 L (3.2-4.6) g/dL Globulin 3.7 g/dL Albumin/Globulin Ratio 0.7 Meds: Medications Generic Name Dose Route Start Last Admin Trade Name Freq PRN Reason Stop Dose Admin Sodium Chloride 1,000 mls @ 999 drops/hr 01/22/21 17:02 01/22/21 17:18 Normal Saline IV 01/23/21 08:02 999 drops/hr .BOLUS ONE Administration Sodium Chloride 1,000 mls @ 999 mls/hr 01/22/21 20:01 01/22/21 20:02 Normal Saline IV 01/22/21 21:01 999 mls/hr .BOLUS ONE Administration Discontinued Medications Generic Name Dose Route Start Last Admin Trade Name Freq PRN Reason Stop Dose Admin Ondansetron HCl 4 mg 01/22/21 17:02 01/22/21 17:22 Ondansetron 4 Mg/2 Ml Sdv IVPUSH 01/22/21 17:03 4 mg ONETIME ONE Administration Departure - Departure Time of Disposition: 20:35 Disposition: Admitted As Inpatient 66 Clinical Impression: Acute renal failure - Discharge Information Referrals: Yordy Phillips MD [Primary Care Provider] - Forms: ED Department Discharge Sepsis Event Note (ED) - Focused Exam Vital Signs: Vital Signs Temp Pulse Resp BP Pulse Ox 01/22/21 20:12 66 18 144/79 H 97 01/22/21 16:30 35.9 C L 79 15 171/87 H 95 - My Orders Last 24 Hours: My Active Orders 01/22/21 17:02 UA W/MICROSCOPIC [URIN] Stat Sodium Chloride 0.9% [Normal Saline] 1,000 ml IV .BOLUS 01/22/21 20:01 Sodium Chloride 0.9% [Normal Saline] 1,000 ml IV .BOLUS - Assessment/Plan Last 24 Hours: My Active Orders 01/22/21 17:02 UA W/MICROSCOPIC [URIN] Stat Sodium Chloride 0.9% [Normal Saline] 1,000 ml IV .BOLUS 01/22/21 20:01 Sodium Chloride 0.9% [Normal Saline] 1,000 ml IV .BOLUS
[2021-01-22] MEDS ORDERED: Sodium Chloride 0.9% 1,000 ML IV ONE ×2 (17:02→20:01)
[2021-01-22] MEDS ORDERED: Ondansetron 4 MG/2 ML SDV IVPUSH ONE (17:02)
[2021-01-22] MEDS ORDERED: Sodium Chloride 0.9% 1,000 ML IV SCH (20:45)
[2021-01-22] MEDS ORDERED: Potassium Chloride 20 MEQ Tab.ER PO ONE (21:15)
[2021-01-22] MEDS: NS + KCl 20mEq/L 1,000 ML IV SCH (21:20)
[2021-01-23] MEDS ORDERED: Amoxicillin 500 MG Cap PO ONE (02:54)
[2021-01-23] MEDS: NS + KCl 20mEq/L 1,000 ML IV SCH (05:37)
[2021-01-23] MEDS ORDERED: Sodium Chloride 0.45% 1,000 ML IV SCH (07:45)
[2021-01-23] MEDS ORDERED: Ondansetron 4 MG/2 ML SDV IVPUSH PRN (08:49)
[2021-01-23] MEDS ORDERED: Amoxicillin 500 MG Cap PO SCH (09:00)
[2021-01-23 10:29] VITALS: BP 151/74; PULSE 48
== END 2021-01-23 11:00 | disposition critical access hospital (66) ==
LOC: FB.ED 16:21
DX: N17.9 Acute kidney failure, unspecified (principal); M19.90 Unspecified osteoarthritis, unspecified site; E11.40 Type 2 diabetes mellitus with diabetic neuropathy, unspecified; E03.9 Hypothyroidism, unspecified; D64.9 Anemia, unspecified; E66.9 Obesity, unspecified; Z68.37 Body mass index [BMI] 37.0-37.9, adult; Z88.8 Allergy status to other drugs, medicaments and biological substances; Z88.1 Allergy status to other antibiotic agents; Z88.5 Allergy status to narcotic agent; Z91.040 Latex allergy status; Z91.012 Allergy to eggs; Z91.048 Other nonmedicinal substance allergy status; Z79.899 Other long term (current) drug therapy; Z79.82 Long term (current) use of aspirin; Z79.84 Long term (current) use of oral hypoglycemic drugs
CPT/HCPCS: 36410; 36415; 80048; 80053; 81001; 85025; 87086; 96365; 96366; 96375; 96376; 99284-25; A9270-GY; J2405; J3480; J3490; J7030

== ENCOUNTER 2021-01-26 17:30 | Inpatient (IN) | payer MEDICARE, MEDICAID ==
[2021-01-26] MEDS ORDERED: Ondansetron 4 MG Tab.DIS PO ONE (17:37)
--- NOTE | 2021-01-26 18:11 | EDM.PDOC ---
ED HPI GENERAL MEDICAL PROBLEM - General Chief Complaint: General Stated Complaint: DEHYDRATION,LETHARGIC Time Seen by Provider: 01/26/21 17:55 Source of Information: Reports: Patient, EMS, Old Records, RN History Limitations: Reports: No Limitations - History of Present Illness INITIAL COMMENTS - FREE TEXT/NARRATIVE: 65 yo female resident of [place] was sent to the ER via EMS today for lethargy and not eating. She was reportedly seen here recently for similar sx's and placed on an antibiotic. No fever was reported. It looks from a review of records that she was admitted here on 01/22/21 for dehydration/some renal failure, UTI, and hypernatremia. Onset: Gradual Duration: Day(s):, Getting Worse Location: Reports: Generalized Quality: Reports: Other (unknown pain) Severity: Moderate (lethargy) Improves with: Reports: None Worsens with: Reports: Other (time) Context: Reports: Other (See HPI) Associated Symptoms: Reports: Loss of Appetite, Malaise. 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: Other (see below) (none) - Related Data Allergies Allergy/AdvReac Type Severity Reaction Status Date / Time metoclopramide HCl Allergy Severe VIOLENT Verified 01/12/21 19:09 [From Reglan] cephalexin monohydrate Allergy Unknown UNKNOWN Verified 01/12/21 19:09 [From Keflex] clobetasol Allergy Unknown Wheezing Verified 01/12/21 19:09 droperidol Allergy Unknown Leg Cramps Verified 01/12/21 19:09 hydroxyzine HCl Allergy Unknown Agitation Verified 01/12/21 19:09 [From Vistaril] hydroxyzine pamoate Allergy Unknown Agitation Verified 01/12/21 19:09 [From Vistaril] naproxen sodium Allergy Unknown Agitation Verified 01/12/21 19:09 [From Anaprox] levofloxacin [From Levaquin] Allergy Rash Verified 01/12/21 21:10 latex AdvReac Mild Rash Verified 01/12/21 19:09 diphenhydramine HCl AdvReac Unknown Agitation Verified 01/12/21 19:09 [From Benadryl] bandaids Allergy Unknown Rash Uncoded 01/12/21 19:09 eggs Allergy Unknown Nausea and Uncoded 01/12/21 19:09 Vomiting Home Meds: Home Meds ARIPiprazole [Abilify] 20 mg PO DAILY 12/23/12 [History] Cyanocobalamin (Vitamin B12) [Vitamin B12] 250 mcg PO DAILY 12/23/12 [History] Ferrous Sulfate 325 mg PO Q72H 12/23/12 [History] Hydrocortisone [Cortef] 10 mg PO ACBREAKFAST 12/23/12 [History] Hydrocortisone [Cortef] 15 mg PO ACLUNCH 12/23/12 [History] Mirtazapine [Remeron] 45 mg PO BEDTIME 12/23/12 [History] Multivitamin with Minerals [Multiple Vitamin] 1 tab PO DAILY 12/23/12 [History] Potassium Chloride 20 meq PO DAILY 12/23/12 [History] calcitrioL [Rocaltrol] 0.25 mcg PO DAILY 12/23/12 [History] carBAMazepine [TEGretol XR] 400 mg PO ACBREAKFAST 12/23/12 [History] Cholecalciferol (Vitamin D3) [Vitamin D3] 2,000 units PO DAILY 07/15/13 [History] Topiramate [Topamax] 100 mg PO BEDTIME 07/15/13 [History] Meclizine HCl 12.5 mg PO TID PRN 08/18/14 [History] Aspirin [Adult Low Dose Aspirin EC] 81 mg PO DAILY 09/22/15 [History] Levothyroxine 125 mcg PO BEDTIME 09/22/15 [History] carBAMazepine [TEGretol XR] 200 mg PO 1200 11/27/17 [History] Acetaminophen [Tylenol Extra Strength] 500 mg PO Q6H PRN 11/21/19 [History] atorvaSTATin [Lipitor] 10 mg PO DAILY 11/21/19 [History] Albuterol Sulfate [Albuterol Sulfate Hfa] 2 puff IH Q4H PRN 11/22/19 [History] Fluticasone Propionate [Flonase Allergy Relief] 1 spray NASBOTH BID PRN 11/22/19 [History] Furosemide [Lasix] 20 mg PO BID@,11/22/19 [History] Gabapentin [Neurontin] 200 mg PO TID 11/22/19 [History] Triamcinolone Acetonide [Triamcinolone Acetonide 0.1% Oint] 1 applic TOP ASDIRECTED PRN 11/22/19 [History] metFORMIN HCl [Fortamet] 1,000 mg PO BIDMEALS 11/22/19 [History] Clotrimazole [Clotrimazole 1%] 1 applic TOP BID PRN 01/13/21 [History] Dapagliflozin Propanediol [Farxiga] 5 mg PO DAILY 01/13/21 [History] Loperamide [Imodium] 2 mg PO QID PRN 01/13/21 [History] Mag Hydrox/Aluminum Hyd/Simeth [Mylanta Maximum Strength Liq] 10 ml PO QID PRN 01/13/21 [History] Methyl Salicylate/Menthol [Icy Hot Stick] 1 applic TOP ASDIRECTED PRN 01/13/21 [History] Polyvinyl Alcohol/Povidone/Pf [Refresh Classic Eye Drops] 1 drop EYEBOTH BID 01/13/21 [History] Doxycycline [Vibra-Tabs] 100 mg PO BID #17 tablet 01/14/21 [Rx] Amoxicillin 875 mg PO BID #6 tablet 01/23/21 [Rx] Ferrous Sulfate 325 mg PO DAILY 01/23/21 [History] Past Medical History HEENT History: Reports: Cataract, Impaired Vision, Other (See Below) Other HEENT History: ambyyopia, presbyopia,peripheral vertigo unidentified ear wears glasses, 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; LEGALLY BLIND IN RIGHT EYE Cardiovascular History: Reports: Arrhythmia, Blood Clots/VTE/DVT, Other (See Below) Other Cardiovascular History: bradycardia, edema, orthostatic hypotension Respiratory History: Reports: None Gastrointestinal History: Reports: Chronic Diarrhea, Colon Polyp, Other (See Below) Other Gastrointestinal History: VITAMIN B 12 DEFICIENCY, IRON DEFICIENCY, VITAMIN D DEFICIENCY; POST SMALL BOWEL SURGERY; CHRONIC DIARRHEA, LOW POTASSIUM, CHRONIC Genitourinary History: Reports: Renal Disease, Other (See Below) Other Genitourinary History: kidney disease; STAGE III TILE GRINDER History: Reports: None Musculoskeletal History: Reports: Arthritis, Back Pain, Chronic, Osteoarthritis, Osteoporosis, Other (See Below) Other Musculoskeletal History: restless leg syndrome,arthropathy, chronic low back pain, neuropathy Neurological History: Reports: Headaches, Chronic, Migraines, Neuropathy, Diabetic, Seizure, Vertigo, Other (See Below) Other Neuro History: epilepsy, anxiety, manic disorder, vertigo, depression, HYPOPOPITUITARISM, RESTLESS LEG SYNDROME Psychiatric History: Reports: Anxiety, Bipolar, Depression, Other (See Below) Other Psychiatric History: manic episode without psychotic symptoms,mood disorder Endocrine/Metabolic History: Reports: Diabetes, Type II, Hypothyroidism, Obesity/BMI 30+, Vitamin D Deficiency, Other (See Below) Other Endocrine/Metabolic History: panhypopituitarism, thyroid disease, neuropathy, VIT B DEF Hematologic History: Reports: Anemia, B12 Deficiency, Iron Deficiency, Other (See Below) Other Hematologic History: iron deficiency anemia, hx of blood clots Immunologic History: Reports: None Oncologic (Cancer) History: Reports: None Dermatologic History: Reports: Other (See Below) Other Dermatologic History: skin disease - Infectious Disease History Infectious Disease History: Reports: Chicken Pox, Measles, Mumps - Past Surgical History Head Surgeries/Procedures: Reports: Craniotomy, Other (See Below) HEENT Surgical History: Reports: Cataract Surgery, Other (See Below) Other HEENT Surgeries/Procedures: brain surgery Cardiovascular Surgical History: Reports: None Respiratory Surgical History: Reports: None GI Surgical History: Reports: Appendectomy, Bariatric Procedure, Cholecystectomy, Colonoscopy, Small Bowel, Other (See Below) Other GI Surgeries/Procedures: small intestine surgery, stomach surgery Female Surgical History: Reports: None Endocrine Surgical History: Reports: Pituitary Tumor Resection Other Neurological Surgeries/Procedures: patient states that 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 Musculoskeletal Surgical History: Reports: Other (See Below) Other Musculoskeletal Surgeries/Procedures:: RIGHT hammer toes, RIGHT foot surgery Oncologic Surgical History: Reports: None Dermatological Surgical History: Reports: Skin Biopsy Social & Family History - Family History Family Medical History: No Pertinent Family History - Caffeine Use Caffeine Use: Reports: None ED ROS GENERAL - Review of Systems Review Of Systems: Unable To Obtain Reason Not Obtained: Patient is not able to express herself, only mumbles when queried Constitutional: Reports: Malaise, Decreased Appetite HEENT: Reports: No Symptoms Respiratory: Reports: No Symptoms ED EXAM, GENERAL - Physical Exam Exam: See Below Exam Limited By: No Limitations General Appearance: WD/WN, No Apparent Distress, Lethargic, Obese Eye Exam: Bilateral Eye: Normal Inspection Ears: Normal External Exam, Normal Canal, Hearing Grossly Normal Ear Exam: Bilateral Ear: Auricle Normal, Canal Normal Nose: Normal Inspection, No Blood Throat/Mouth: Normal Inspection, Normal Lips, Normal Voice, No Airway Compromise Head: Atraumatic, Normocephalic Neck: Normal Inspection Respiratory/Chest: No Respiratory Distress, Lungs Clear, Normal Breath Sounds, No Accessory Muscle Use Cardiovascular: Regular Rate, Rhythm, No Edema GI/Abdominal: Soft, Non-Tender Back Exam: Normal Inspection. No: CVA Tenderness (R), CVA Tenderness (L) Extremities: Normal Inspection, Normal Range of Motion, Non-Tender, No Pedal Edema Neurological: CN II-XII Intact, No Motor/Sensory Deficits, Slow to Respond, Other (mumbles only verbally) Psychiatric: Flat Affect Skin Exam: Warm, Dry, Intact, Normal Color, No Rash Course - Orders/Labs/Meds Orders: Active Orders 24 hr Category Date Time Status CORONAVIRUS COVID-19 SHANDA [MOLEC] Stat Lab 01/26/21 19:21 Ordered TSH ULTRASENSITIVE [CHEM] Stat Lab 01/26/21 19:25 Received Potassium Chloride [KCL in Water 20 MEQ/100 ML] 20 meq Med 01/26/21 18:46 Active Premix Bag 1 bag IV ONETIME Medication Orders Potassium Chloride 20 meq/ (Premix) 100 mls @ 50 mls/hr IV ONETIME ONE Stop: 01/26/21 20:45 Last Admin: 01/26/21 19:21 Dose: 50 mls/hr Documented by: LAURENT Labs: Laboratory Tests 01/26/21 01/26/21 01/26/21 Range/Units 18:00 18:00 18:00 WBC 9.5 (3.0-10.3) x10-3/uL RBC 6.33 H (3.60-5.20) x10(6)uL Hgb 19.7 H (11.4-15.5) g/dL Hct 59.6 H (34.2-48.2) % MCV 94.1 (76.7-100.5) fL MCH 31.1 (23.9-33.9) pg MCHC 33.1 (31.9-34.8) g/dL RDW 14.9 (12.3-16.5) % Plt Count 219 (151-488) x10(3)uL Sodium 164 H* D (135-145) mmol/L Potassium 3.0 L D (3.5-5.3) mmol/L Chloride 128 H* D (100-110) mmol/L Carbon Dioxide 18 L (21-32) mmol/L BUN 39 H (7-18) mg/dL Creatinine 2.2 H* (0.55-1.02) mg/dL Est Cr Clr Drug Dosing TNP Estimated GFR (MDRD) 22 L (>60) BUN/Creatinine Ratio 17.7 (9-20) Glucose 145 H (80-116) mg/dL Calcium 7.4 L (8.6-10.2) mg/dL Magnesium (1.8-2.5) mg/dL Troponin I (4.0-60.3) pg/mL Urine Color Yellow (YELLOW) Urine Appearance Clear (CLEAR) Urine pH 5.0 (5.0-6.5) Ur Specific [place] 1.010 (1.010-1.025) Urine Protein Negative (NEGATIVE) mg/dL Urine Glucose (UA) 100 H (NORMAL) mg/dL Urine Ketones Negative (NEGATIVE) mg/dL Urine Occult Blood Large H (NEGATIVE) Urine Nitrite Negative (NEGATIVE) Urine Bilirubin Negative (NEGATIVE) Urine Urobilinogen Normal (NEGATIVE) mg/dL Ur Leukocyte Esterase Negative (NEGATIVE) Urine RBC 0-5 (0-5) Urine WBC 0-5 (0-5) Ur Squamous Epith Cells Rare (NS,R,O) Urine Bacteria Rare H (NS) Carbamazepine (<0.5) ug/mL 01/26/21 01/26/21 01/26/21 Range/Units 18:00 19:25 19:25 WBC (3.0-10.3) x10-3/uL RBC (3.60-5.20) x10(6)uL Hgb (11.4-15.5) g/dL Hct (34.2-48.2) % MCV (76.7-100.5) fL MCH (23.9-33.9) pg MCHC (31.9-34.8) g/dL RDW (12.3-16.5) % Plt Count (151-488) x10(3)uL Sodium (135-145) mmol/L Potassium (3.5-5.3) mmol/L Chloride (100-110) mmol/L Carbon Dioxide (21-32) mmol/L BUN (7-18) mg/dL Creatinine (0.55-1.02) mg/dL Est Cr Clr Drug Dosing Estimated GFR (MDRD) (>60) BUN/Creatinine Ratio (9-20) Glucose (80-116) mg/dL Calcium (8.6-10.2) mg/dL Magnesium 1.9 (1.8-2.5) mg/dL Troponin I 52.2 (4.0-60.3) pg/mL Urine Color (YELLOW) Urine Appearance (CLEAR) Urine pH (5.0-6.5) Ur Specific [place] (1.010-1.025) Urine Protein (NEGATIVE) mg/dL Urine Glucose (UA) (NORMAL) mg/dL Urine Ketones (NEGATIVE) mg/dL Urine Occult Blood (NEGATIVE) Urine Nitrite (NEGATIVE) Urine Bilirubin (NEGATIVE) Urine Urobilinogen (NEGATIVE) mg/dL Ur Leukocyte Esterase (NEGATIVE) Urine RBC (0-5) Urine WBC (0-5) Ur Squamous Epith Cells (NS,R,O) Urine Bacteria (NS) Carbamazepine 12.5 H (<0.5) ug/mL Meds: Medications Generic Name Dose Route Start Last Admin Trade Name Freq PRN Reason Stop Dose Admin Potassium Chloride 20 meq/ 100 mls @ 50 mls/hr 01/26/21 18:46 01/26/21 19:21 Premix IV 01/26/21 20:45 50 mls/hr ONETIME ONE Administration Discontinued Medications Generic Name Dose Route Start Last Admin Trade Name Freq PRN Reason Stop Dose Admin Sodium Chloride 1,000 mls @ 1,000 mls/hr 01/26/21 18:45 01/26/21 19:21 Normal Saline IV 01/26/21 19:44 1,000 mls/hr .BOLUS ONE Administration Ondansetron HCl 4 mg 01/26/21 17:37 01/26/21 18:26 Ondansetron 4 Mg Tab.Dis PO 01/26/21 17:38 4 mg ONETIME ONE Administration Departure - Departure Time of Disposition: 20:00 Disposition: Admitted As Inpatient 66 Condition: Serious Clinical Impression: Hypernatremia, Hypokalemia, Dehydration - Discharge Information Referrals: Yordy Phillips MD [Primary Care Provider] - Forms: ED Department Discharge - My Orders Last 24 Hours: My Active Orders 01/26/21 18:46 Potassium Chloride [KCL in Water 20 MEQ/100 ML] 20 meq Premix Bag 1 bag IV ONETIME 01/26/21 19:21 CORONAVIRUS COVID-19 SHANDA [MOLEC] Stat 01/26/21 19:25 TSH ULTRASENSITIVE [CHEM] Stat - Assessment/Plan Last 24 Hours: My Active Orders 01/26/21 18:46 Potassium Chloride [KCL in Water 20 MEQ/100 ML] 20 meq Premix Bag 1 bag IV ONETIME 01/26/21 19:21 CORONAVIRUS COVID-19 SHANDA [MOLEC] Stat 01/26/21 19:25 TSH ULTRASENSITIVE [CHEM] Stat
[2021-01-26] MEDS ORDERED: Sodium Chloride 0.9% 1,000 ML IV ONE (18:45)
[2021-01-26] MEDS ORDERED: Potassium Chloride 20 MEQ in Premix Bag 1 BAG IV ONE (18:46)
[2021-01-26] MEDS ORDERED: Ondansetron 4 MG/2 ML SDV IV PRN (19:59)
[2021-01-26] MEDS ORDERED: Enoxaparin 30 MG/0.3 ML Syringe SUBCUT SCH (20:00)
[2021-01-26] MEDS ORDERED: Sodium Chloride 0.9% 1,000 ML IV SCH (20:00)
[2021-01-26] MEDS ORDERED: Potassium Chloride 10 MEQ in Premix Bag 1 BAG IV ONE (20:06)
[2021-01-26] MEDS ORDERED: Triamcinolone Acetonide 0.1% Oint 15 GM Tube TOP PRN (20:07)
[2021-01-26] MEDS ORDERED: Clotrimazole 1% Crm 15 GM Tube TOP PRN (20:07)
[2021-01-26] MEDS ORDERED: Polyvinyl Alcohol 1.4%/Povidone 0.6% Ophth Soln 0.4 ML Box of 30 EYEBOTH SCH (21:00)
[2021-01-26] MEDS ORDERED: Polyvinyl Alcohol 1.4% Ophth Soln 15 ML Bottle EYEBOTH SCH (22:21)
[2021-01-27] MEDS ORDERED: Sodium Chloride 0.45% 1,000 ML IV SCH ×2 (08:15→09:30)
[2021-01-27] MEDS ORDERED: Dextrose 5% in Water 1,000 ML IV SCH (09:45)
--- NOTE | 2021-01-27 10:44 | PCM.HP.2 ---
H&P History of Present Illness - General Date of Service: 01/27/21 Admit Problem/Dx: Admission Diagnosis/Problem Admission Diagnosis/Problem Hypernatremia - History of Present Illness Initial Comments - Free Text/Narative: Angelica was admitted through the ER due to severe dehydration,ZAID. She has had fatigue,inability to eat,and altered mental status for over 2 weeks. She has been seen x4 in the ED,and a similar number of times in the clinic. Admitted once last month for similar symptoms. Last night she was brought by the ambulance with same complaints. Her sodium was 164,with K of 3.0. 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 - Related Data Allergies/Adverse Reactions: Allergies Allergy/AdvReac Type Severity Reaction Status Date / Time metoclopramide HCl Allergy Severe VIOLENT Verified 01/26/21 22:59 [From Reglan] cephalexin monohydrate Allergy Unknown UNKNOWN Verified 01/26/21 22:59 [From Keflex] clobetasol Allergy Unknown Wheezing Verified 01/26/21 22:59 droperidol Allergy Unknown Leg Cramps Verified 01/26/21 22:59 hydroxyzine HCl Allergy Unknown Agitation Verified 01/26/21 22:59 [From Vistaril] hydroxyzine pamoate Allergy Unknown Agitation Verified 01/26/21 22:59 [From Vistaril] naproxen sodium Allergy Unknown Agitation Verified 01/26/21 22:59 [From Anaprox] levofloxacin [From Levaquin] Allergy Rash Verified 01/26/21 22:59 latex AdvReac Mild Rash Verified 01/26/21 22:59 diphenhydramine HCl AdvReac Unknown Agitation Verified 01/26/21 22:59 [From Benadryl] bandaids Allergy Unknown Rash Uncoded 01/12/21 19:09 eggs Allergy Unknown Nausea and Uncoded 01/12/21 19:09 Vomiting Home Medications: Home Meds ARIPiprazole [Abilify] 20 mg PO DAILY 12/23/12 [History] Cyanocobalamin (Vitamin B12) [Vitamin B12] 250 mcg PO DAILY 12/23/12 [History] Ferrous Sulfate 325 mg PO Q72H 12/23/12 [History] Hydrocortisone [Cortef] 10 mg PO ACBREAKFAST 12/23/12 [History] Hydrocortisone [Cortef] 15 mg PO ACLUNCH 12/23/12 [History] Mirtazapine [Remeron] 45 mg PO BEDTIME 12/23/12 [History] Multivitamin with Minerals [Multiple Vitamin] 1 tab PO DAILY 12/23/12 [History] Potassium Chloride 20 meq PO DAILY 12/23/12 [History] calcitrioL [Rocaltrol] 0.25 mcg PO DAILY 12/23/12 [History] carBAMazepine [TEGretol XR] 400 mg PO ACBREAKFAST 12/23/12 [History] Cholecalciferol (Vitamin D3) [Vitamin D3] 2,000 units PO DAILY 07/15/13 [History] Topiramate [Topamax] 100 mg PO BEDTIME 07/15/13 [History] Meclizine HCl 12.5 mg PO TID PRN 08/18/14 [History] Aspirin [Adult Low Dose Aspirin EC] 81 mg PO DAILY 09/22/15 [History] Levothyroxine 125 mcg PO BEDTIME 09/22/15 [History] carBAMazepine [TEGretol XR] 200 mg PO 1200 11/27/17 [History] Acetaminophen [Tylenol Extra Strength] 500 mg PO Q6H PRN 11/21/19 [History] atorvaSTATin [Lipitor] 10 mg PO DAILY 11/21/19 [History] Albuterol Sulfate [Albuterol Sulfate Hfa] 2 puff IH Q4H PRN 11/22/19 [History] Fluticasone Propionate [Flonase Allergy Relief] 2 spray NASBOTH BID PRN 11/22/19 [History] Furosemide [Lasix] 20 mg PO BID@11/22/19 [History] Gabapentin [Neurontin] 200 mg PO TID 11/22/19 [History] Triamcinolone Acetonide [Triamcinolone Acetonide 0.1% Oint] 1 applic TOP ASDIRECTED PRN 11/22/19 [History] metFORMIN HCl [Fortamet] 1,000 mg PO BIDMEALS 11/22/19 [History] Clotrimazole [Clotrimazole 1%] 1 applic TOP BID PRN 01/13/21 [History] Dapagliflozin Propanediol [Farxiga] 5 mg PO DAILY 01/13/21 [History] Loperamide [Imodium] 2 mg PO QID PRN 01/13/21 [History] Mag Hydrox/Aluminum Hyd/Simeth [Mylanta Maximum Strength Liq] 10 ml PO QID PRN 01/13/21 [History] Methyl Salicylate/Menthol [Icy Hot Stick] 1 applic TOP ASDIRECTED PRN 01/13/21 [History] Polyvinyl Alcohol/Povidone/Pf [Refresh Classic Eye Drops] 1 drop EYEBOTH BID 01/13/21 [History] Amoxicillin 875 mg PO BID #6 tablet 01/23/21 [Rx] Ondansetron [Zofran ODT] 4 mg PO Q4H PRN 01/27/21 [History] Past Medical History HEENT History: Reports: Cataract, Impaired Vision, Other (See Below) Other HEENT History: ambyyopia, presbyopia,peripheral vertigo unidentified ear wears glasses, 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; LEGALLY BLIND IN RIGHT EYE Cardiovascular History: Reports: Arrhythmia, Blood Clots/VTE/DVT, Other (See Below) Other Cardiovascular History: bradycardia, edema, orthostatic hypotension Respiratory History: Reports: None Gastrointestinal History: Reports: Chronic Diarrhea, Colon Polyp, Other (See Below) Other Gastrointestinal History: VITAMIN B 12 DEFICIENCY, IRON DEFICIENCY, VITAMIN D DEFICIENCY; POST SMALL BOWEL SURGERY; CHRONIC DIARRHEA, LOW POTASSIUM, CHRONIC Genitourinary History: Reports: Renal Disease, Other (See Below) Other Genitourinary History: kidney disease; [employer] History: Reports: None Musculoskeletal History: Reports: Arthritis, Back Pain, Chronic, Osteoarthritis, Osteoporosis, Other (See Below) Other Musculoskeletal History: restless leg syndrome,arthropathy, chronic low back pain, neuropathy Neurological History: Reports: Headaches, Chronic, Migraines, Neuropathy, Diabetic, Seizure, Vertigo, Other (See Below) Other Neuro History: epilepsy, anxiety, manic disorder, vertigo, depression, HYPOPOPITUITARISM, RESTLESS LEG SYNDROME Psychiatric History: Reports: Anxiety, Bipolar, Depression, Other (See Below) Other Psychiatric History: manic episode without psychotic symptoms,mood disorder Endocrine/Metabolic History: Reports: Diabetes, Type II, Hypothyroidism, Obesity/BMI 30+, Vitamin D Deficiency, Other (See Below) Other Endocrine/Metabolic History: panhypopituitarism, thyroid disease, neuropathy, VIT B DEF Hematologic History: Reports: Anemia, B12 Deficiency, Iron Deficiency, Other (See Below) Other Hematologic History: iron deficiency anemia, hx of blood clots Immunologic History: Reports: None Oncologic (Cancer) History: Reports: None Dermatologic History: Reports: Other (See Below) Other Dermatologic History: skin disease - Infectious Disease History Infectious Disease History: Reports: Chicken Pox, Measles, Mumps - Past Surgical History Head Surgeries/Procedures: Reports: Craniotomy, Other (See Below) HEENT Surgical History: Reports: Cataract Surgery, Other (See Below) Other HEENT Surgeries/Procedures: brain surgery Cardiovascular Surgical History: Reports: None Respiratory Surgical History: Reports: None GI Surgical History: Reports: Appendectomy, Bariatric Procedure, Ch olecystectomy, Colonoscopy, Small Bowel, Other (See Below) Other GI Surgeries/Procedures: small intestine surgery, stomach surgery Female Surgical History: Reports: None Endocrine Surgical History: Reports: Pituitary Tumor Resection Other Neurological Surgeries/Procedures: patient states that 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 Musculoskeletal Surgical History: Reports: Other (See Below) Other Musculoskeletal Surgeries/Procedures:: RIGHT hammer toes, RIGHT foot surgery Oncologic Surgical History: Reports: None Dermatological Surgical History: Reports: Skin Biopsy Social & Family History - Family History Family Medical History: No Pertinent Family History - Tobacco Use Tobacco Use Status *Q: Never Tobacco User Second Hand Smoke Exposure: No - Caffeine Use Caffeine Use: Reports: Coffee - Recreational Drug Use Recreational Drug Use: No H&P Review of Systems - Review of Systems: Review Of Systems: Comprehensive ROS is negative, except as noted in HPI. Exam - Exam Exam: See Below - Vital Signs Vital Signs: Last Vital Signs Temp 97.5 F 01/27/21 05:21 Pulse 71 01/27/21 05:21 Resp 16 01/27/21 05:21 BP 108/72 01/27/21 05:21 Pulse Ox 96 01/27/21 05:21 Weight: 71.985 kg - Exam General: Lethargic HEENT: PERRLA Neck: Trachea Midline Lungs: Clear to Auscultation, Crackles GI/Abdominal Exam: Soft Back Exam: Normal Inspection Extremities: Normal Inspection, Normal Range of Motion Skin: Warm Neurological: Cranial Nerves Intact Neuro Extensive - Mental Status: Alert, Oriented x3 Neuro Extensive - Motor, Sensory, Reflexes: CN II-XII Intact Psychiatric: Alert, Normal Affect - Patient Data Lab Results Last 24 hrs: Laboratory Results - last 24 hr 01/26/21 01/26/21 01/26/21 Range/Units 18:00 18:00 18:00 WBC 9.5 (3.0-10.3) x10-3/uL RBC 6.33 H (3.60-5.20) x10(6)uL Hgb 19.7 H (11.4-15.5) g/dL Hct 59.6 H (34.2-48.2) % MCV 94.1 (76.7-100.5) fL MCH 31.1 (23.9-33.9) pg MCHC 33.1 (31.9-34.8) g/dL RDW 14.9 (12.3-16.5) % Plt Count 219 (151-488) x10(3)uL Sodium 164 H* D (135-145) mmol/L Potassium 3.0 L D (3.5-5.3) mmol/L Chloride 128 H* D (100-110) mmol/L Carbon Dioxide 18 L (21-32) mmol/L BUN 39 H (7-18) mg/dL Creatinine 2.2 H* (0.55-1.02) mg/dL Est Cr Clr Drug Dosing TNP Estimated GFR (MDRD) 22 L (>60) BUN/Creatinine Ratio 17.7 (9-20) Glucose 145 H (80-116) mg/dL Calcium 7.4 L (8.6-10.2) mg/dL Magnesium (1.8-2.5) mg/dL Troponin I (4.0-60.3) pg/mL TSH, Ultra Sensitive (0.36-3.74) IU/mL Urine Color Yellow (YELLOW) Urine Appearance Clear (CLEAR) Urine pH 5.0 (5.0-6.5) Ur Specific [place]berry 1.010 (1.010-1.025) Urine Protein Negative (NEGATIVE) mg/dL Urine Glucose (UA) 100 H (NORMAL) mg/dL Urine Ketones Negative (NEGATIVE) mg/dL Urine Occult Blood Large H (NEGATIVE) Urine Nitrite Negative (NEGATIVE) Urine Bilirubin Negative (NEGATIVE) Urine Urobilinogen Normal (NEGATIVE) mg/dL Ur Leukocyte Esterase Negative (NEGATIVE) Urine RBC 0-5 (0-5) Urine WBC 0-5 (0-5) Ur Squamous Epith Cells Rare (NS,R,O) Urine Bacteria Rare H (NS) Carbamazepine (<0.5) ug/mL SARS-CoV-2 RNA (SHANDA) (NEGATIVE) 01/26/21 01/26/21 01/26/21 Range/Units 18:00 19:25 19:25 WBC (3.0-10.3) x10-3/uL RBC (3.60-5.20) x10(6)uL Hgb (11.4-15.5) g/dL Hct (34.2-48.2) % MCV (76.7-100.5) fL MCH (23.9-33.9) pg MCHC (31.9-34.8) g/dL RDW (12.3-16.5) % Plt Count (151-488) x10(3)uL Sodium (135-145) mmol/L Potassium (3.5-5.3) mmol/L Chloride (100-110) mmol/L Carbon Dioxide (21-32) mmol/L BUN (7-18) mg/dL Creatinine (0.55-1.02) mg/dL Est Cr Clr Drug Dosing Estimated GFR (MDRD) (>60) BUN/Creatinine Ratio (9-20) Glucose (80-116) mg/dL Calcium (8.6-10.2) mg/dL Magnesium (1.8-2.5) mg/dL Troponin I 52.2 (4.0-60.3) pg/mL TSH, Ultra Sensitive < 0.01 L (0.36-3.74) IU/mL Urine Color (YELLOW) Urine Appearance (CLEAR) Urine pH (5.0-6.5) Ur Specific Newberry (1.010-1.025) Urine Protein (NEGATIVE) mg/dL Urine Glucose (UA) (NORMAL) mg/dL Urine Ketones (NEGATIVE) mg/dL Urine Occult Blood (NEGATIVE) Urine Nitrite (NEGATIVE) Urine Bilirubin (NEGATIVE) Urine Urobilinogen (NEGATIVE) mg/dL Ur Leukocyte Esterase (NEGATIVE) Urine RBC (0-5) Urine WBC (0-5) Ur Squamous Epith Cells (NS,R,O) Urine Bacteria (NS) Carbamazepine 12.5 H (<0.5) ug/mL SARS-CoV-2 RNA (SHANDA) (NEGATIVE) 01/26/21 01/26/21 01/27/21 Range/Units 19:25 20:03 06:35 WBC (3.0-10.3) x10-3/uL RBC (3.60-5.20) x10(6)uL Hgb (11.4-15.5) g/dL Hct (34.2-48.2) % MCV (76.7-100.5) fL MCH (23.9-33.9) pg MCHC (31.9-34.8) g/dL RDW (12.3-16.5) % Plt Count (151-488) x10(3)uL Sodium 169 H* (135-145) mmol/L Potassium 3.2 L (3.5-5.3) mmol/L Chloride 137 H* D (100-110) mmol/L Carbon Dioxide 18 L (21-32) mmol/L BUN 38 H (7-18) mg/dL Creatinine 2.1 H* (0.55-1.02) mg/dL Est Cr Clr Drug Dosing 21.12 Estimated GFR (MDRD) 24 L (>60) BUN/Creatinine Ratio 18.1 (9-20) Glucose 93 (80-116) mg/dL Calcium 6.5 L* (8.6-10.2) mg/dL Magnesium 1.9 (1.8-2.5) mg/dL Troponin I (4.0-60.3) pg/mL TSH, Ultra Sensitive (0.36-3.74) IU/mL Urine Color (YELLOW) Urine Appearance (CLEAR) Urine pH (5.0-6.5) Ur Specific Newberry (1.010-1.025) Urine Protein (NEGATIVE) mg/dL Urine Glucose (UA) (NORMAL) mg/dL Urine Ketones (NEGATIVE) mg/dL Urine Occult Blood (NEGATIVE) Urine Nitrite (NEGATIVE) Urine Bilirubin (NEGATIVE) Urine Urobilinogen (NEGATIVE) mg/dL Ur Leukocyte Esterase (NEGATIVE) Urine RBC (0-5) Urine WBC (0-5) Ur Squamous Epith Cells (NS,R,O) Urine Bacteria (NS) Carbamazepine (<0.5) ug/mL SARS-CoV-2 RNA (SHANDA) Negative (NEGATIVE) Result Diagrams: 01/26/21 18:00 01/27/21 14:12 Sepsis Event Note - Evaluation Sepsis Screening Result: No Definite Risk - Focused Exam Vital Signs: Vital Signs Temp Temp Pulse Resp BP Pulse Ox 01/27/21 05:21 97.5 F 71 16 108/72 96 01/27/21 00:00 93.6 F L 69 18 131/92 H 96 - Problem List (1) Dehydration with hypernatremia SNOMED Code(s): 772708152 ICD Code: E86.0 - DEHYDRATION; E87.0 - HYPEROSMOLALITY AND HYPERNATREMIA Status: Acute (2) Acute renal failure SNOMED Code(s): 72862114 ICD Code: N17.9 - ACUTE KIDNEY FAILURE, UNSPECIFIED Status: Acute Qualifiers: Acute renal failure type: unspecified Qualified Code(s): N17.9 - Acute kidney failure, unspecified (3) Panhypopituitarism SNOMED Code(s): 92156458 ICD Code: E23.0 - HYPOPITUITARISM Status: Chronic (4) Altered mental status SNOMED Code(s): 655978380 ICD Code: R41.82 - ALTERED MENTAL STATUS, UNSPECIFIED Status: Resolved Qualifiers: Altered mental status type: delirium Qualified Code(s): R41.0 - Disorientation, unspecified Problem List Initiated/Reviewed/Updated: Yes Orders Last 24hrs: Active Orders 24 hr Category Date Time Status Patient Status [ADT] Routine ADT 01/26/21 19:59 Active [place] Catheter Insertion [Insert Urinary Catheter] [OM. Care 01/26/21 20:15 Ordered PC] Q24H Height and Weight [RC] 06 Care 01/26/21 19:59 Active Intake and Output [RC] 06,14,22 Care 01/26/21 20:01 Active Oxygen Therapy [RC] PRN Care 01/26/21 19:59 Active Urinary Catheter Assessment [RC] QSHIFT Care 01/26/21 20:06 Active VTE/DVT Education [RC] Per Unit Routine Care 01/26/21 19:59 Active Vaccine to be Administered/Admin Charge [RC] ASDIRECTED Care 01/27/21 08:21 Active Vital Signs [RC] 00,04,08,12,16,20 Care 01/26/21 19:59 Active BASIC METABOLIC PANEL,BMP [CHEM] Stat Lab 01/27/21 14:00 Ordered Clotrimazole [Clotrimazole 1%] Med 01/26/21 20:07 Active 0 gm TOP BID PRN Dextrose 5% in Water @ 125 MLS/HR(1,000ml) Med 01/27/21 09:45 Ordered Dextrose 5% in Water 1,000 ml IV ASDIRECTED Enoxaparin [Lovenox] Med 01/26/21 20:00 Active 30 mg SUBCUT Q24H Ondansetron [Zofran] Med 01/26/21 19:59 Active 4 mg IV Q6H PRN Polyvinyl Alcohol [LiquiTears 1.4% Ophth Soln] Med 01/26/21 22:21 Active 0 ml EYEBOTH BID Triamcinolone Acetonide [Triamcinolone Acetonide 0.1% Med 01/26/21 20:07 Active Oint] 0 gm TOP ASDIRECTED PRN Antiembolic Hose [OM.PC] Per Unit Routine Oth 01/26/21 20:02 Ordered Resuscitation Status Routine Resus Stat 01/26/21 19:59 Ordered Medication Orders Artificial Tears (Polyvinyl Alcohol 1.4% Ophth Soln 15 Ml Bottle) 0 ml EYEBOTH BID [facility] Last Admin: 01/27/21 09:21 Dose: 1 drop Documented by: THELMA Clotrimazole (Clotrimazole 1% Crm 15 Gm Tube) 0 gm TOP BID PRN PRN Reason: Rash Enoxaparin Sodium (Enoxaparin 30 Mg/0.3 Ml Syringe) 30 mg SUBCUT Q24H [facility] Last Admin: 01/26/21 22:11 Dose: 30 mg Documented by: [place] Dextrose/Water (Dextrose 5% In Water) 1,000 mls @ 125 mls/hr IV ASDIRECTED [facility] Last Admin: 01/27/21 10:13 Dose: 125 mls/hr Documented by: THELMA Ondansetron HCl (Ondansetron 4 Mg/2 Ml Sdv) 4 mg IV Q6H PRN PRN Reason: Nausea/Vomiting Triamcinolone Acetonide (Triamcinolone Acetonide 0.1% Oint 15 Gm Tube) 0 gm TOP ASDIRECTED PRN PRN Reason: affected area Assessment/Plan Comment:: I gave her a bolus of 1/2 NS. I called [place] and will transfer her. In the meantime,we will start d5 H20 at 125 cc /hour.
[2021-01-27 11:06] VITALS: PULSE 70
[2021-01-27 13:41] VITALS: BP 92/42
--- NOTE | 2021-01-27 19:47 | DISCH ---
DISCHARGE DATE: 01/27/2021 REASON FOR ADMISSION: 1. Acute kidney injury. 2. Hypernatremia. 3. Altered mental status. DISCHARGE DIAGNOSES: 1. Adrenal insufficiency. 2. Acute kidney injury. 3. Hypernatremia. 4. Altered mental status. 5. History of seizures. BRIEF HISTORY: This is a 65-year-old admitted last night with dehydration, lethargy, alteration of mental status, found to have a very high sodium of 164. She was given normal saline, which was discontinued this morning and changed to half-normal saline. Given history of craniopharyngioma and panhypopituitarism, I elected to transfer to [place]. They agreed, and she will go by ambulance. In the meantime, we will change her fluid to D5 free water at 125 mL an hour. I spent more than 35 minutes in the discharge of the patient. /[id number] [place]
== END 2021-01-27 17:00 | DRG 683 ==
LOC: FB.ED 17:30 → FB.MS 19:59 → UNDOADMIN 20:42 → FB.MS 20:42 → UNDODISIN 01-27 17:00
PROVIDERS: ADMIT Emergency Medicine; ATTEND Family Medicine
DX: N17.9 Acute kidney failure, unspecified (principal); E87.0 Hyperosmolality and hypernatremia; E27.40 Unspecified adrenocortical insufficiency; E23.0 Hypopituitarism; R56.9 Unspecified convulsions; E87.6 Hypokalemia; D44.4 Neoplasm of uncertain behavior of craniopharyngeal duct; E86.0 Dehydration; K52.9 Noninfective gastroenteritis and colitis, unspecified; E53.8 Deficiency of other specified B group vitamins; E55.9 Vitamin D deficiency, unspecified; H54.7 Unspecified visual loss; Z86.718 Personal history of other venous thrombosis and embolism; M54.9 Dorsalgia, unspecified; I49.9 Cardiac arrhythmia, unspecified; N18.30 Chronic kidney disease, stage 3 unspecified; M19.90 Unspecified osteoarthritis, unspecified site; G89.29 Other chronic pain; G43.909 Migraine, unspecified, not intractable, without status migrainosus; E11.42 Type 2 diabetes mellitus with diabetic polyneuropathy; F41.9 Anxiety disorder, unspecified; F32.9 Major depressive disorder, single episode, unspecified; E66.9 Obesity, unspecified; M81.0 Age-related osteoporosis without current pathological fracture; G25.81 Restless legs syndrome; Z88.5 Allergy status to narcotic agent; M54.50 Low back pain, unspecified; E11.22 Type 2 diabetes mellitus with diabetic chronic kidney disease; E11.40 Type 2 diabetes mellitus with diabetic neuropathy, unspecified; E03.9 Hypothyroidism, unspecified; Z98.49 Cataract extraction status, unspecified eye; Z98.890 Other specified postprocedural states; Z98.84 Bariatric surgery status; Z90.49 Acquired absence of other specified parts of digestive tract; G40.909 Epilepsy, unspecified, not intractable, without status epilepticus; Z68.29 Body mass index [BMI] 29.0-29.9, adult; Z88.1 Allergy status to other antibiotic agents; Z91.012 Allergy to eggs; Z91.040 Latex allergy status; Z88.8 Allergy status to other drugs, medicaments and biological substances; Z91.048 Other nonmedicinal substance allergy status; Z79.84 Long term (current) use of oral hypoglycemic drugs; Z79.82 Long term (current) use of aspirin; Z79.890 Hormone replacement therapy; Z79.899 Other long term (current) drug therapy; Z20.822 Contact with and (suspected) exposure to COVID-19
CPT/HCPCS: 36415; 80048; 80156; 81001; 83735; 84443; 84484; 85027; 96374; 99285; A9270; J3480; J7030; U0002; J1650; J3490; J7060

== ENCOUNTER 2021-03-04 12:58 | Observation (INO) | payer MEDICARE, MEDICAID ==
--- NOTE | 2021-03-04 16:52 | EDM.PDOC ---
ED HPI GENERAL MEDICAL PROBLEM - General Chief Complaint: General Stated Complaint: ??? Time Seen by Provider: 03/04/21 13:05 Source of Information: Reports: Patient, Jail Records History Limitations: Reports: No Limitations - History of Present Illness INITIAL COMMENTS - FREE TEXT/NARRATIVE: c/o fall last night and this AM pt d/c'ed from [facility] back to assisted living at [facility] after a one month hospitalization for delirium and seizure disorder she fell yesterday evening and again this AM, both unwitnessed, has minor abrasions of face and a minor cut on her upper lip, only pain is her lip staff at [facility] said that are unable to care for her and cannot take her back d/c summary from [facility] from yesterday says "at baseline patient . . . 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 an IV accepted by hospitalist Dr Degroot to an acute bed Left Lip Pain Score (Numeric/FACES): 3 - Related Data Allergies Allergy/AdvReac Type Severity Reaction Status Date / Time metoclopramide HCl Allergy Severe VIOLENT Verified 01/26/21 22:59 [From Reglan] cephalexin monohydrate Allergy Unknown UNKNOWN Verified 01/26/21 22:59 [From Keflex] clobetasol Allergy Unknown Wheezing Verified 01/26/21 22:59 droperidol Allergy Unknown Leg Cramps Verified 01/26/21 22:59 hydroxyzine HCl Allergy Unknown Agitation Verified 01/26/21 22:59 [From Vistaril] hydroxyzine pamoate Allergy Unknown Agitation Verified 01/26/21 22:59 [From Vistaril] naproxen sodium Allergy Unknown Agitation Verified 01/26/21 22:59 [From Anaprox] levofloxacin [From Levaquin] Allergy Rash Verified 01/26/21 22:59 latex AdvReac Mild Rash Verified 01/26/21 22:59 diphenhydramine HCl AdvReac Unknown Agitation Verified 01/26/21 22:59 [From Benadryl] bandaids Allergy Unknown Rash Uncoded 01/12/21 19:09 eggs Allergy Unknown Nausea and Uncoded 01/12/21 19:09 Vomiting Home Meds: Home Meds Hydrocortisone [Cortef] 10 mg PO ACBREAKFAST 12/23/12 [History] Hydrocortisone [Cortef] 15 mg PO ACLUNCH 12/23/12 [History] Multivitamin with Minerals [Multiple Vitamin] 1 tab PO DAILY 12/23/12 [History] carBAMazepine [TEGretol XR] 400 mg PO ACBREAKFAST 12/23/12 [History] Topiramate [Topamax] 100 mg PO BEDTIME 07/15/13 [History] Meclizine HCl 12.5 mg PO TID PRN 08/18/14 [History] carBAMazepine [TEGretol XR] 200 mg PO 1200 11/27/17 [History] Acetaminophen [Tylenol Extra Strength] 500 mg PO Q6H PRN 11/21/19 [History] atorvaSTATin [Lipitor] 10 mg PO DAILY 11/21/19 [History] Albuterol Sulfate [Albuterol Sulfate Hfa] 2 puff IH Q4H PRN 11/22/19 [History] Triamcinolone Acetonide [Triamcinolone Acetonide 0.1% Oint] 1 applic TOP ASDIRECTED PRN 11/22/19 [History] Clotrimazole [Clotrimazole 1%] 1 applic TOP BID PRN 01/13/21 [History] Loperamide [Imodium] 2 mg PO QID PRN 01/13/21 [History] Mag Hydrox/Aluminum Hyd/Simeth [Mylanta Maximum Strength Liq] 10 ml PO QID PRN 01/13/21 [History] Methyl Salicylate/Menthol [Icy Hot Stick] 1 applic TOP ASDIRECTED PRN 01/13/21 [History] Polyvinyl Alcohol/Povidone/Pf [Refresh Classic Eye Drops] 1 drop EYEBOTH BID 01/13/21 [History] Ondansetron [Zofran ODT] 4 mg PO Q4H PRN 01/27/21 [History] ARIPiprazole [Abilify] 5 mg PO DAILY 03/04/21 [History] Lacosamide [Vimpat] 200 mg PO BID 03/04/21 [History] Levothyroxine 150 mcg PO DAILY 03/04/21 [History] Mirtazapine 15 mg PO BEDTIME 03/04/21 [History] dronabinoL [Marinol] 5 mg PO TIDAC 03/04/21 [History] levETIRAcetam [Levetiracetam] 750 mg PO BID 03/04/21 [History] Past Medical History HEENT History: Reports: Cataract, Impaired Vision, Other (See Below) Other HEENT History: ambyyopia, presbyopia,peripheral vertigo unidentified ear wears glasses, 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; LEGALLY BLIND IN RIGHT EYE Cardiovascular History: Reports: Arrhythmia, Blood Clots/VTE/DVT, Other (See Below) Other Cardiovascular History: bradycardia, edema, orthostatic hypotension Respiratory History: Reports: None Gastrointestinal History: Reports: Chronic Diarrhea, Colon Polyp, Other (See Below) Other Gastrointestinal History: VITAMIN B 12 DEFICIENCY, IRON DEFICIENCY, VITAMIN D DEFICIENCY; POST SMALL BOWEL SURGERY; CHRONIC DIARRHEA, LOW POTASSIUM, CHRONIC Genitourinary History: Reports: Renal Disease, Other (See Below) Other Genitourinary History: kidney disease; 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: Reports: None Musculoskeletal History: Reports: Arthritis, Back Pain, Chronic, Osteoarthritis, Osteoporosis, Other (See Below) Other Musculoskeletal History: restless leg syndrome,arthropathy, chronic low back pain, neuropathy Neurological History: Reports: Headaches, Chronic, Migraines, Neuropathy, Diabetic, Seizure, Vertigo, Other (See Below) Other Neuro History: epilepsy, anxiety, manic disorder, vertigo, depression, HYPOPOPITUITARISM, RESTLESS LEG SYNDROME Psychiatric History: Reports: Anxiety, Bipolar, Depression, Other (See Below) Other Psychiatric History: manic episode without psychotic symptoms,mood disorder Endocrine/Metabolic History: Reports: Diabetes, Type II, Hypothyroidism, Obesity/BMI 30+, Vitamin D Deficiency, Other (See Below) Other Endocrine/Metabolic History: panhypopituitarism, thyroid disease, neuropathy, VIT B DEF Hematologic History: Reports: Anemia, B12 Deficiency, Iron Deficiency, Other (See Below) Other Hematologic History: iron deficiency anemia, hx of blood clots Immunologic History: Reports: None Oncologic (Cancer) History: Reports: None Dermatologic History: Reports: Other (See Below) Other Dermatologic History: skin disease - Infectious Disease History Infectious Disease History: Reports: Chicken Pox, Measles, Mumps - Past Surgical History Head Surgeries/Procedures: Reports: Craniotomy, Other (See Below) HEENT Surgical History: Reports: Cataract Surgery, Other (See Below) Other HEENT Surgeries/Procedures: brain surgery Cardiovascular Surgical History: Reports: None Respiratory Surgical History: Reports: None GI Surgical History: Reports: Appendectomy, Bariatric Procedure, Cholecystectomy, Colonoscopy, Small Bowel, Other (See Below) Other GI Surgeries/Procedures: small intestine surgery, stomach surgery Female Surgical History: Reports: None Endocrine Surgical History: Reports: Pituitary Tumor Resection Other Neurological Surgeries/Procedures: patient states that 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 Musculoskeletal Surgical History: Reports: Other (See Below) Other Musculoskeletal Surgeries/Procedures:: RIGHT hammer toes, RIGHT foot surgery Oncologic Surgical History: Reports: None Dermatological Surgical History: Reports: Skin Biopsy Social & Family History - Family History Family Medical History: No Pertinent Family History - Caffeine Use Caffeine Use: Reports: Coffee ED ROS GENERAL - Review of Systems Review Of Systems: See Below Constitutional: Reports: Weakness. Denies: Fatigue, Night Sweats, Diaphoresis HEENT: Reports: No Symptoms Respiratory: Reports: No Symptoms Cardiovascular: Reports: No Symptoms Endocrine: Reports: No Symptoms GI/Abdominal: Reports: No Symptoms : Reports: No Symptoms Musculoskeletal: Reports: Other (gait instability) Skin: Reports: No Symptoms Neurological: Reports: No Symptoms Psychiatric: Reports: No Symptoms Hematologic/Lymphatic: Reports: No Symptoms Immunologic: Reports: No Symptoms ED EXAM, GENERAL - Physical Exam Exam: See Below Free Text/Narrative:: pleasant, no overt delirium, memory difficulties, normal speech, good eye cont act Exam Limited By: No Limitations General Appearance: Alert, WD/WN Eye Exam: Bilateral Eye: Other (pupils 4/4 mm) Ears: Hearing Grossly Normal Nose: Normal Inspection, Normal Mucosa, No Blood Head: Other (minor abrasions of both cheeks and chin, 5 mm lac in upper mid lip with 2 mm separation, no oral cuts, no teeth loose or chipped) Respiratory/Chest: No Respiratory Distress, Lungs Clear, Chest Non-Tender Cardiovascular: Regular Rate, Rhythm, No Edema, No Murmur GI/Abdominal: Soft, Non-Tender, No Distention Back Exam: Normal Inspection, Full Range of Motion Extremities: Normal Inspection, Normal Range of Motion, Non-Tender, No Pedal Edema Neurological: Alert, Oriented, CN II-XII Intact, No Motor/Sensory Deficits Psychiatric: Normal Affect, Normal Mood Skin Exam: Warm, Dry, Intact Lymphatic: No Adenopathy Course - Vital Signs Last Recorded V/S: Last Vital Signs Temp 36.4 C 03/04/21 12:58 Pulse 62 03/04/21 12:58 Resp 20 03/04/21 12:58 BP 128/109 H 03/04/21 12:58 Pulse Ox 99 03/04/21 12:58 - Orders/Labs/Meds Orders: Active Orders 24 hr Category Date Time Status UA W/MICROSCOPIC [URIN] Stat Lab 03/04/21 13:37 Ordered Departure - Departure Time of Disposition: 16:46 Disposition: Refer to Observation Condition: Good Clinical Impression: Recurrent falls, Gait instability, Generalized weakness, Facial abrasion, Minor head injury, Elevated serum creatinine, Laceration of lip - Discharge Information *PRESCRIPTION DRUG MONITORING PROGRAM REVIEWED*: Not Applicable *COPY OF PRESCRIPTION DRUG MONITORING REPORT IN PATIENT ROVERTO: Not Applicable Sepsis Event Note (ED) - Evaluation Sepsis Screening Result: No Definite Risk - Focused Exam Vital Signs: Vital Signs Temp Pulse Resp BP Pulse Ox 03/04/21 12:58 36.4 C 62 20 128/109 H 99 - My Orders Last 24 Hours: My Active Orders 03/04/21 13:37 UA W/MICROSCOPIC [URIN] Stat - Assessment/Plan Last 24 Hours: My Active Orders 03/04/21 13:37 UA W/MICROSCOPIC [URIN] Stat
[2021-03-04] MEDS ORDERED: Albuterol 8 GM Inhaler INH PRN (19:14)
[2021-03-04] MEDS ORDERED: Ondansetron 4 MG Tab.DIS PO PRN (19:14)
[2021-03-04] MEDS ORDERED: Acetaminophen 500 MG Tab PO PRN (19:14)
[2021-03-04] MEDS ORDERED: LACOSAMIDE 200 MG PO SCH (21:00)
[2021-03-04] MEDS: Enoxaparin 40 MG/0.4 ML Syringe SUBCUT SCH (21:02)
[2021-03-04] MEDS: LEVETIRACETAM 750 MG PO SCH (21:05)
[2021-03-04] MEDS: TOPIRAMATE 100 MG PO SCH (21:07)
[2021-03-04] MEDS: Mirtazapine 15 MG Tab **OWN MED PO SCH (21:07)
[2021-03-04] MEDS: atorvaSTATin 10 MG Tab **OWN MED PO SCH (21:07)
[2021-03-05] MEDS: Levothyroxine 150 MCG Tab **OWN MED PO SCH (06:42)
[2021-03-05] MEDS: CARBAMAZEPINE 200 MG PO SCH ×2 (06:43→12:00)
[2021-03-05] MEDS: HYDROCORTISONE 10 MG PO SCH (06:43)
[2021-03-05] MEDS ORDERED: DRONABINOL 5 MG PO SCH (07:30)
[2021-03-05] MEDS ORDERED: Non-Formulary Medication 1 Each (Multivitamin With Minerals [Multiple Vitamin] 1 EACH Tabl PO SCH (09:00)
[2021-03-05] MEDS ORDERED: LEVETIRACETAM 750 MG PO SCH (09:00)
[2021-03-05] MEDS: Lactated Ringers 1,000 ML IV SCH (09:19)
[2021-03-05] MEDS: ARIPIPRAZOLE 5 MG PO SCH (09:49)
[2021-03-05] MEDS: LACOSAMIDE 200 MG PO SCH ×2 (09:49→21:05)
[2021-03-05] MEDS: LEVETIRACETAM 750 MG PO SCH ×3 (09:50→21:42)
--- NOTE | 2021-03-05 11:24 | PCM.HP.2 ---
H&P History of Present Illness - General Date of Service: 03/05/21 Admit Problem/Dx: Admission Diagnosis/Problem Admission Diagnosis/Problem Fall Source of Information: Patient, Old Records, Provider History Limitations: Reports: Physical Impairment - History of Present Illness Initial Comments - Free Text/Narative: Porsha was admitted yesterday evening after sustaining fall night and Sunday morning at [facility]. She was discharged from [facility] after a one month hospitalization for hypernatremia, encephalopathy, seizure disorder. Falls were both unwitnessed, has minor abrasions of face and a minor cut on her upper lip, only pain is her lip. She states she doesn't know how she fell, doesn't remember if she tripped on something, denies her vision going black or having a seizure. She states she doesn't remember the last time she had a seizure. Denies any fever, chills, cough, shortness of breath, chest pain, abdominal pain, no knee pain. No pain with urination. D/c summary from [facility] from 03/03 says "at baseline patient . . . is usually able to ambulate and interact independently." In ER: venipuncture unsuccessful, CBC done off of fingerstick, WBC at 11k (had been 9k and in normal range 2m ago). Covid negative. [employer] able to start an IV and labs obtained showed mild increase creat 1.1 from baseline, u/a negative. [facility] staff told ER that they were not able to take her back at her present level, that she was requiring more care than they can give her. Admit for observation care, PT consult for Sunday. Left Lip Pain Score (Numeric/FACES): 3 - Related Data Allergies/Adverse Reactions: Allergies Allergy/AdvReac Type Severity Reaction Status Date / Time metoclopramide HCl Allergy Severe VIOLENT Verified 03/04/21 17:48 [From Reglan] cephalexin monohydrate Allergy Unknown UNKNOWN Verified 03/04/21 17:48 [From Keflex] clobetasol Allergy Unknown Wheezing Verified 03/04/21 17:48 droperidol Allergy Unknown Leg Cramps Verified 03/04/21 17:48 hydroxyzine HCl Allergy Unknown Agitation Verified 03/04/21 17:48 [From Vistaril] hydroxyzine pamoate Allergy Unknown Agitation Verified 03/04/21 17:48 [From Vistaril] naproxen sodium Allergy Unknown Agitation Verified 03/04/21 17:48 [From Anaprox] levofloxacin [From Levaquin] Allergy Rash Verified 03/04/21 17:48 latex AdvReac Mild Rash Verified 03/04/21 17:48 diphenhydramine HCl AdvReac Unknown Agitation Verified 03/04/21 17:48 [From Benadryl] bandaids Allergy Unknown Rash Uncoded 01/12/21 19:09 eggs Allergy Unknown Nausea and Uncoded 01/12/21 19:09 Vomiting Home Medications: Home Meds Hydrocortisone [Cortef] 10 mg PO ACBREAKFAST 12/23/12 [History] Hydrocortisone [Cortef] 15 mg PO ACLUNCH 12/23/12 [History] Multivitamin with Minerals [Multiple Vitamin] 1 tab PO DAILY 12/23/12 [History] carBAMazepine [TEGretol XR] 400 mg PO ACBREAKFAST 12/23/12 [History] Topiramate [Topamax] 100 mg PO BEDTIME 07/15/13 [History] Meclizine HCl 12.5 mg PO TID PRN 08/18/14 [History] carBAMazepine [TEGretol XR] 200 mg PO 1200 11/27/17 [History] Acetaminophen [Tylenol Extra Strength] 500 mg PO Q6H PRN 11/21/19 [History] atorvaSTATin [Lipitor] 10 mg PO BEDTIME 11/21/19 [History] Albuterol Sulfate [Albuterol Sulfate Hfa] 2 puff IH Q4H PRN 11/22/19 [History] Triamcinolone Acetonide [Triamcinolone Acetonide 0.1% Oint] 1 applic TOP BID PRN 11/22/19 [History] Clotrimazole [Clotrimazole 1%] 1 applic TOP BID PRN 01/13/21 [History] Loperamide [Imodium] 2 mg PO ASDIRECTED PRN 01/13/21 [History] Mag Hydrox/Aluminum Hyd/Simeth [Mylanta Maximum Strength Liq] 10 ml PO QID PRN 01/13/21 [History] Methyl Salicylate/Menthol [Icy Hot Stick] 1 applic TOP DAILY PRN 01/13/21 [Hi story] Polyvinyl Alcohol/Povidone/Pf [Refresh Classic Eye Drops] 1 drop EYEBOTH BID 01/13/21 [History] Ondansetron [Zofran ODT] 4 mg PO Q4H PRN 01/27/21 [History] ARIPiprazole [Abilify] 5 mg PO DAILY 03/04/21 [History] Lacosamide [Vimpat] 200 mg PO BID 03/04/21 [History] Levothyroxine 150 mcg PO DAILY 03/04/21 [History] Mirtazapine 15 mg PO BEDTIME 03/04/21 [History] dronabinoL [Marinol] 5 mg PO TIDAC 03/04/21 [History] levETIRAcetam [Levetiracetam] 750 mg PO BID 03/04/21 [History] Past Medical History HEENT History: Reports: Cataract, Impaired Vision, Other (See Below) Other HEENT History: ambyyopia, presbyopia,peripheral vertigo unidentified ear wears glasses, 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; LEGALLY BLIND IN RIGHT EYE Cardiovascular History: Reports: Arrhythmia, Blood Clots/VTE/DVT, Other (See Below) Other Cardiovascular History: bradycardia, edema, orthostatic hypotension Respiratory History: Reports: None Gastrointestinal History: Reports: Chronic Diarrhea, Colon Polyp, Other (See Below) Other Gastrointestinal History: VITAMIN B 12 DEFICIENCY, IRON DEFICIENCY, VIT RIZZO D DEFICIENCY; POST SMALL BOWEL SURGERY; CHRONIC DIARRHEA, LOW POTASSIUM, CHRONIC Genitourinary History: Reports: Renal Disease, Other (See Below) Other Genitourinary History: kidney disease; [employer]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[employer]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 Musculoskeletal History: Reports: Arthritis, Back Pain, Chronic, Osteoarthritis, Osteoporosis, Other (See Below) Other Musculoskeletal History: restless leg syndrome,arthropathy, chronic low back pain, neuropathy Neurological History: Reports: Headaches, Chronic, Migraines, Neuropathy, Diabetic, Seizure, Vertigo, Other (See Below) Other Neuro History: epilepsy, anxiety, manic disorder, vertigo, depression, HYPOPOPITUITARISM, RESTLESS LEG SYNDROME Psychiatric History: Reports: Anxiety, Bipolar, Depression, Other (See Below) Other Psychiatric History: manic episode without psychotic symptoms,mood disorder Endocrine/Metabolic History: Reports: Diabetes, Type II, Hypothyroidism, Obesity/BMI 30+, Vitamin D Deficiency, Other (See Below) Other Endocrine/Metabolic History: panhypopituitarism, thyroid disease, neuropathy, VIT B DEF Hematologic History: Reports: Anemia, B12 Deficiency, Iron Deficiency, Other (See Below) Other Hematologic History: iron deficiency anemia, hx of blood clots Immunologic History: Reports: None Oncologic (Cancer) History: Reports: None Dermatologic History: Reports: Other (See Below) Other Dermatologic History: skin disease - Infectious Disease History Infectious Disease History: Reports: Chicken Pox, Measles, Mumps - Past Surgical History Head Surgeries/Procedures: Reports: Craniotomy, Other (See Below) HEENT Surgical History: Reports: Cataract Surgery, Other (See Below) Other HEENT Surgeries/Procedures: brain surgery Cardiovascular Surgical History: Reports: None Respiratory Surgical History: Reports: None GI Surgical History: Reports: Appendectomy, Bariatric Procedure, Cholecystectomy, Colonoscopy, Small Bowel, Other (See Below) Other GI Surgeries/Procedures: small intestine surgery, stomach surgery Female Surgical History: Reports: None Endocrine Surgical History: Reports: Pituitary Tumor Resection Other Neurological Surgeries/Procedures: patient states that 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 Musculoskeletal Surgical History: Reports: Other (See Below) Other Musculoskeletal Surgeries/Procedures:: RIGHT hammer toes, RIGHT foot surgery Oncologic Surgical History: Reports: None Dermatological Surgical History: Reports: Skin Biopsy Social & Family History - Family History Family Medical History: No Pertinent Family History - Tobacco Use Tobacco Use Status *Q: Never Tobacco User - Caffeine Use Caffeine Use: Reports: Coffee - Recreational Drug Use Recreational Drug Use: No H&P Review of Systems - Review of Systems: Review Of Systems: Comprehensive ROS is negative, except as noted in HPI. Exam - Exam Exam: See Below - Vital Signs Vital Signs: Last Vital Signs Temp 96.6 F L 03/05/21 07:50 Pulse 60 03/05/21 07:50 Resp 18 03/05/21 07:50 BP 130/59 L 03/05/21 07:50 Pulse Ox 99 03/05/21 07:50 Weight: 153 lb - Exam General: Alert, Oriented, Cooperative HEENT: PERRLA, Conjunctiva Clear, Hearing Intact, Mucosa Moist & [place] Lungs: Clear to Auscultation, Normal Respiratory Effort Cardiovascular: Regular Rate, Regular Rhythm GI/Abdominal Exam: Normal Bowel Sounds, Soft, Non-Tender, No Distention (Female) Exam: Deferred Rectal (Female) Exam: Deferred Extremities: No Pedal Edema, Normal Capillary Refill Peripheral Pulses: 2+: Radial (L), Radial (R), Posterior Tibial (L), Posterior Tibial (R), Dorsalis Pedis (L), Dorsalis Pedis (R) Skin: Ecchymosis (left forehead, zygoma, left upper lip, left knee) Neurological: Cranial Nerves Intact, Normal Speech Psychiatric: No: Normal Affect (flat, at her baseline) - Patient Data Lab Results Last 24 hrs: Laboratory Results - last 24 hr 03/04/21 03/04/21 03/04/21 Range/Units 14:25 16:10 16:10 WBC 11.8 H (3.0-10.3) x10-3/uL RBC 4.82 (3.60-5.20) x10(6)uL Hgb 15.4 D (11.4-15.5) g/dL Hct 46.3 D (34.2-48.2) % MCV 95.9 (76.7-100.5) fL MCH 31.8 (23.9-33.9) pg MCHC 33.2 (31.9-34.8) g/dL RDW 15.0 (12.3-16.5) % Plt Count 193 (151-488) x10(3)uL MPV 8.0 (7.1-12.4) fL Neut % (Auto) 63.9 (30.8-76.2) % Lymph % (Auto) 28.3 (18.4-52.1) % [place] % (Auto) 5.4 (4.4-15.7) % Eos % (Auto) 1.4 (0.6-8.1) % Baso % (Auto) 1.0 (0.2-1.5) % Neut # (Auto) 6.7 H (1.5-6.3) x10-3/uL Lymph # (Auto) 3.0 (1.0-4.4) x10-3/uL [place] # (Auto) 0.6 (0.3-1.0) x10-3/uL Eos # (Auto) 0.1 (0.0-0.8) x10-3/uL Baso # (Auto) 0.1 (0.0-0.1) x10-3/uL ESR Cancelled Sodium 141 D (135-145) mmol/L Potassium 5.0 D (3.5-5.3) mmol/L Chloride 107 D (100-110) mmol/L Carbon Dioxide 23 (21-32) mmol/L BUN 14 D (7-18) mg/dL Creatinine 1.1 H (0.55-1.02) mg/dL Est Cr Clr Drug Dosing 36.62 mL/min Estimated GFR (MDRD) 50 L (>60) BUN/Creatinine Ratio 12.7 (9-20) Glucose 170 H (80-116) mg/dL Calcium 8.5 L D (8.6-10.2) mg/dL Total Bilirubin 0.3 (0.1-1.3) mg/dL AST 31 H D (5-25) IU/L ALT 30 D (12-36) U/L Alkaline Phosphatase 135 H (56-112) IU/L C-Reactive Protein 1.1 H (0.5-0.9) mg/dL Total Protein 6.6 (6.0-8.0) g/dL Albumin 3.3 (3.2-4.6) g/dL Globulin 3.3 g/dL Albumin/Globulin Ratio 1.0 Urine Color (YELLOW) Urine Appearance (CLEAR) Urine pH (5.0-6.5) Ur Specific [place] (1.010-1.025) Urine Protein (NEGATIVE) mg/dL Urine Glucose (UA) (NORMAL) mg/dL Urine Ketones (NEGATIVE) mg/dL Urine Occult Blood (NEGATIVE) Urine Nitrite (NEGATIVE) Urine Bilirubin (NEGATIVE) Urine Urobilinogen (NEGATIVE) mg/dL Ur Leukocyte Esterase (NEGATIVE) Urine RBC (0-5) Urine WBC (0-5) Ur Squamous Epith Cells (NS,R,O) Urine Bacteria (NS) SARS-CoV-2 RNA (SHANDA) (NEGATIVE) 03/04/21 03/05/21 Range/Units 17:10 06:30 WBC (3.0-10.3) x10-3/uL RBC (3.60-5.20) x10(6)uL Hgb (11.4-15.5) g/dL Hct (34.2-48.2) % MCV (76.7-100.5) fL MCH (23.9-33.9) pg MCHC (31.9-34.8) g/dL RDW (12.3-16.5) % Plt Count (151-488) x10(3)uL MPV (7.1-12.4) fL Neut % (Auto) (30.8-76.2) % Lymph % (Auto) (18.4-52.1) % [place] % (Auto) (4.4-15.7) % Eos % (Auto) (0.6-8.1) % Baso % (Auto) (0.2-1.5) % Neut # (Auto) (1.5-6.3) x10-3/uL Lymph # (Auto) (1.0-4.4) x10-3/uL [place] # (Auto) (0.3-1.0) x10-3/uL Eos # (Auto) (0.0-0.8) x10-3/uL Baso # (Auto) (0.0-0.1) x10-3/uL ESR Sodium (135-145) mmol/L Potassium (3.5-5.3) mmol/L Chloride (100-110) mmol/L Carbon Dioxide (21-32) mmol/L BUN (7-18) mg/dL Creatinine (0.55-1.02) mg/dL Est Cr Clr Drug Dosing mL/min Estimated GFR (MDRD) (>60) BUN/Creatinine Ratio (9-20) Glucose (80-116) mg/dL Calcium (8.6-10.2) mg/dL Total Bilirubin (0.1-1.3) mg/dL AST (5-25) IU/L ALT (12-36) U/L Alkaline Phosphatase (56-112) IU/L C-Reactive Protein (0.5-0.9) mg/dL Total Protein (6.0-8.0) g/dL Albumin (3.2-4.6) g/dL Globulin g/dL Albumin/Globulin Ratio Urine Color Yellow (YELLOW) Urine Appearance Clear (CLEAR) Urine pH 6.0 (5.0-6.5) Ur Specific [place] 1.015 (1.010-1.025) Urine Protein Trace (NEGATIVE) mg/dL Urine Glucose (UA) Normal (NORMAL) mg/dL Urine Ketones Negative (NEGATIVE) mg/dL Urine Occult Blood Negative (NEGATIVE) Urine Nitrite Negative (NEGATIVE) Urine Bilirubin Negative (NEGATIVE) Urine Urobilinogen Normal (NEGATIVE) mg/dL Ur Leukocyte Esterase Negative (NEGATIVE) Urine RBC 0-5 (0-5) Urine WBC 0-5 (0-5) Ur Squamous Epith Cells Occasional (NS,R,O) Urine Bacteria Rare H (NS) SARS-CoV-2 RNA (SHANDA) Negative (NEGATIVE) Result Diagrams: 03/04/21 14:25 03/04/21 16:10 Sepsis Event Note - Evaluation Sepsis Screening Result: No Definite Risk - Focused Exam Vital Signs: Vital Signs Temp Pulse Resp BP BP Pulse Ox 03/05/21 07:50 96.6 F L 60 18 130/59 L 99 03/05/21 04:00 97.0 F 59 L 16 148/71 H 99 *Q Meaningful Use (ADM) - VTE *Q VTE Mechanical Contraindications *Q: At Risk for Falls - Problem List (1) Recurrent falls SNOMED Code(s): 789043170 ICD Code: R29.6 - REPEATED FALLS Status: Acute Current Visit: Yes (2) Elevated serum creatinine SNOMED Code(s): 437857047 ICD Code: R79.89 - OTHER SPECIFIED ABNORMAL FINDINGS OF BLOOD CHEMISTRY Status: Acute Current Visit: Yes Problem Details: Cr 1.1, baseline 0.9 (3) Facial abrasion SNOMED Code(s): 739886467 ICD Code: S00.81XA - ABRASION OF OTHER PART OF HEAD, INITIAL ENCOUNTER Status: Acute Current Visit: Yes (4) Gait instability SNOMED Code(s): 76276604 ICD Code: R26.81 - UNSTEADINESS ON FEET Status: Acute Current Visit: Yes (5) Generalized weakness SNOMED Code(s): 57873415 ICD Code: R53.1 - WEAKNESS Status: Acute Current Visit: Yes (6) Laceration of lip SNOMED Code(s): 836843450 ICD Code: S01.511A - LACERATION WITHOUT FOREIGN BODY OF LIP, INITIAL ENCOUNTER Status: Acute Current Visit: Yes (7) Minor head injury SNOMED Code(s): 343753082 ICD Code: S09.90XA - UNSPECIFIED INJURY OF HEAD, INITIAL ENCOUNTER Status: Acute Current Visit: Yes (8) Panhypopituitarism SNOMED Code(s): 02516453 ICD Code: E23.0 - HYPOPITUITARISM Status: Chronic Current Visit: No (9) Seizure disorder SNOMED Code(s): 941800102 ICD Code: G40.909 - EPILEPSY, UNSP, NOT INTRACTABLE, WITHOUT STATUS EPILEPTICUS Status: Chronic Current Visit: Yes Problem List Initiated/Reviewed/Updated: Yes Orders Last 24hrs: Active Orders 24 hr Category Date Time Status Admission Status [Patient Status] [ADT] Routine ADT 03/04/21 17:05 Active Oxygen Therapy [RC] PRN Care 03/04/21 19:17 Active RT Aerosol Therapy [RC] ASDIRECTED Care 03/04/21 19:16 Active Up With Assistance [RC] ASDIRECTED Care 03/04/21 19:17 Active Urinary Catheter Insertion [Insert Urinary Catheter] [ Care 03/05/21 06:30 Ordered OM.PC] Routine VTE/DVT Education [RC] Per Unit Routine Care 03/04/21 19:17 Active Vital Signs [RC] QSHIFT Care 03/04/21 19:17 Active OT Evaluation and Treatment [CONS] Routine Cons 03/07/21 06:00 Active PT Evaluation and Treatment [CONS] Routine Cons 03/07/21 06:00 Active Head wo Cont [CT] Routine Exams 03/04/21 19:00 Taken BASIC METABOLIC PANEL,BMP [CHEM] Routine Lab 03/06/21 06:00 Ordered CBC WITH AUTO DIFF [HEME] Routine Lab 03/06/21 06:00 Ordered ARIPiprazole [Abilify] Med 03/05/21 09:00 Active 5 mg PO DAILY Acetaminophen [Tylenol Extra Strength] Med 03/04/21 19:14 Active 500 mg PO Q6H PRN Albuterol [Ventolin HFA] Med 03/04/21 19:14 Pending DOSE gm INH Q4H PRN Enoxaparin [Lovenox] Med 03/04/21 20:00 Active 40 mg SUBCUT Q24H Hydrocortisone [Cortef] Med 03/05/21 07:30 Active 0 mg PO ACBREAKFAST Hydrocortisone [Cortef] Med 03/05/21 11:30 Active 15 mg PO ACLUNCH Lacosamide [Vimpat] Med 03/05/21 09:00 Active 200 mg PO BID Lactated Ringers [Ringers, Lactated] 1,000 ml Med 03/05/21 09:15 Active IV ASDIRECTED Levetiracetam [Levetiracetam] Med 03/04/21 21:00 Active 0 mg PO BEDTIME Levothyroxine Med 03/05/21 06:00 Active 150 mcg PO DAILY@0600 Mag Hydrox/Aluminum Hyd/Simeth [Mylanta Maximum Med 03/04/21 19:14 Pending Strength Liq] 10 ml PO QID PRN Mirtazapine [Remeron] Med 03/04/21 21:00 Active 15 mg PO BEDTIME Ondansetron [Zofran ODT] Med 03/04/21 19:14 Pending 4 mg PO Q4H PRN Topiramate [Topamax] Med 03/04/21 21:00 Active 0 mg PO BEDTIME atorvaSTATin [Lipitor] Med 03/04/21 21:00 Active 10 mg PO BEDTIME carBAMazepine [TEGretol XR] Med 03/05/21 12:00 Active 200 mg PO DAILY@1200 carBAMazepine [TEGretol XR] Med 03/05/21 07:30 Active 400 mg PO ACBREAKFAST dronabinoL [Marinol] Med 03/05/21 07:30 Pending 5 mg PO TIDAC levETIRAcetam [Levetiracetam] Med 03/05/21 09:00 Active 750 mg PO BID Resuscitation Status Routine Resus Stat 03/04/21 19:17 Ordered Medication Orders Acetaminophen (Acetaminophen 500 Mg Tab) 500 mg PO Q6H PRN PRN Reason: fever/pain Albuterol (Albuterol 8 Gm Inhaler) gm INH Q4H PRN PRN Reason: SOB, wheezing, cough Aripiprazole (Aripiprazole 5 Mg TabOwn Med) 5 mg PO DAILY [facility] Last Admin: 03/05/21 09:49 Dose: 5 mg Documented by: SANFORD Atorvastatin Calcium (Atorvastatin 10 Mg Tab Own Med) 10 mg PO BEDTIME [facility] Last Admin: 03/04/21 21:07 Dose: 10 mg Documented by: REBECCA Enoxaparin Sodium (Enoxaparin 40 Mg/0.4 Ml Syringe) 40 mg SUBCUT Q24H [facility] Last Admin: 03/04/21 21:02 Dose: 40 mg Documented by: REBECCA Lactated Ringer's (Ringers, Lactated) 1,000 mls @ 50 mls/hr IV ASDIRECTED [facility] Last Admin: 03/05/21 09:19 Dose: 50 mls/hr Documented by: JACEY Levothyroxine Sodium (Levothyroxine 150 Mcg Tab Own Med) 150 mcg PO STANISLAV LY@0600 [facility] Last Admin: 03/05/21 06:42 Dose: 150 mcg Documented by: REBECCA Mirtazapine (Mirtazapine 15 Mg Tab Own Med) 15 mg PO BEDTIME [facility] Last Admin: 03/04/21 21:07 Dose: 15 mg Documented by: REBECCA Carbamazepine [ Tegretol Xr] 200 Mg Cap.Er Own Med 400 mg PO ACBREAKFAST [facility] Last Admin: 03/05/21 06:43 Dose: 400 mg Documented by: REBECCA Carbamazepine [ Tegretol Xr] 200 Mg Cap.ErOwn Med 200 mg PO DAILY@1200 [facility] Non-Formulary Medication (Dronabinol [Marinol]) 5 mg PO TIDAC [facility] Hydrocortisone ( Cortef) 10 Mg Tablet Own Med 0 mg PO ACBREAKFAST [facility] Last Admin: 03/05/21 06:43 Dose: 10 mg Documented by: REBECCA Hydrocortisone [ Cortef] 5 Mg Tablet* *Own Med 15 mg PO ACLUNCH [facility] Lacosamide [Vimpat] 200 Mg TabletOwn Med 200 mg PO BID [facility] Last Admin: 03/05/21 09:49 Dose: 200 mg Documented by: SANFORD Non-Formulary Medication (Mag Hydrox/Aluminum Hyd/Simeth [Mylanta Maximum Strength Liq]) 10 ml PO QID PRN PRN Reason: Indigestion Topiramate (Topamax) 100 Mg Tablet Own Med 0 mg PO BEDTIME [facility] Last Admin: 03/04/21 21:07 Dose: 100 mg Documented by: REBECCA Levetiracetam 750 Mg (Tablet Own Med) 0 mg PO BEDTIME [facility] Last Admin: 03/04/21 21:05 Dose: 750 mg Documented by: REBECCA Levetiracetam] 750 (MgOwn Med) 750 mg PO BID EPI Last Admin: 03/05/21 09:50 Dose: 750 mg Documented by: SANFORD Ondansetron HCl (Ondansetron 4 Mg Tab.Dis) 4 mg PO Q4H PRN PRN Reason: Nausea Assessment/Plan Comment:: 1. Admit for observation for recurrent fall, head trauma, elevated creatinine/WBC. 2. Recurrent fall/gait instability/head injury: CT head was negative. WBC 11.6, 03/01: WBC 9, Cr 0.9, yesterday 1.1. Anesthesia started IV, LR at 50 ml/hr to keep IV open. Had only 200 ml urine output overnight. PT/OT consult for Sunday morning. May need NH placement if she cannot go back to [facility]. She did have prolonged stay in [facility] 01/27-03/03, they discontinued a lot of medications per pharmacy. Will review records from [place] for more information. Ice as needed to left face/knee. 3. Elevated Cr/WBC: likely due to poor oral intake, LR at 50 ml/hr, repeat labs tomorrow. 4. Diet: Regular. 5. Activity: up with assistance & up to chair. 6. DVT prophylaxis: Enoxaparin 40 mg SQ daily. 7. CODE STATUS: FULL. 8. Disposition: Anticipate stay through the weekend, needs therapy assessment, patient was unsure if she saw therapy while in [place]. May need higher level of care as [facility] states they cannot care for her where she is at now. - Mortality Measure Prognosis:: Poor
[2021-03-05] MEDS: HYDROCORTISONE 5 MG PO SCH (12:00)
[2021-03-05] MEDS: Enoxaparin 40 MG/0.4 ML Syringe SUBCUT SCH (20:50)
[2021-03-05] MEDS ORDERED: LACOSAMIDE 200 MG PO SCH (21:00)
[2021-03-05] MEDS: TOPIRAMATE 100 MG PO SCH (21:07)
[2021-03-05] MEDS: Mirtazapine 15 MG Tab **OWN MED PO SCH (21:07)
[2021-03-05] MEDS: atorvaSTATin 10 MG Tab **OWN MED PO SCH (21:07)
[2021-03-06] MEDS: Lactated Ringers 1,000 ML IV SCH ×2 (03:56→18:34)
[2021-03-06] MEDS: Levothyroxine 150 MCG Tab **OWN MED PO SCH (06:56)
[2021-03-06] MEDS: HYDROCORTISONE 10 MG PO SCH (06:56)
[2021-03-06] MEDS: CARBAMAZEPINE 200 MG PO SCH ×2 (06:56→11:31)
[2021-03-06] MEDS: ARIPIPRAZOLE 5 MG PO SCH (08:02)
[2021-03-06] MEDS: LEVETIRACETAM 750 MG PO SCH ×3 (08:03→20:19)
[2021-03-06] MEDS: LACOSAMIDE 200 MG PO SCH ×2 (08:03→20:18)
[2021-03-06] MEDS: HYDROCORTISONE 5 MG PO SCH (11:31)
[2021-03-06] MEDS ORDERED: Ketorolac 30 MG/ML SDV IVPUSH PRN (14:53)
--- NOTE | 2021-03-06 15:34 | PCM.PN ---
- General Info Date of Service: 03/06/21 Subjective Update: Angelica's labs have normalized but her oral intake is poor. She had little urine output yesterday, was bladder scanned for 380 ml, straight catheterization performed. She has not had urge to urinate and has not been incontinent. Spoke to her mom today, she stated that she had NG tube placed in [place] due to her poor intake and was not a candidate for PEG tube placement due to previous stomach surgeries. She pulled it out a few times while there. She also had re fused medications in [place] as well as here. Her mom stated she had EEG monitoring for 2 weeks as she was having recurrent seizures there. She was prescribed the Marinol to help with her appetite but sporadic on when she will take her medications. Mom stated that she had episodes in [place] of staring off but no one called them absence seizures. They had discharged to back to [facility] rather than facility in [place] where her mom and brothers reside because Mom stated that she felt [facility] was like family to Angelica. She questioned her quality of life if she is not eating/drinking enough, refusing her seizure medications; we discussed hospice as option and would like to further discuss with Jazmyne Giles tomorrow. Angelica this morning was staring off not answer questions when I tried to exam but had eaten 50% of breakfast and Lunch, did take meds today for nursing but had refused all her meds yesterday. Returned this afternoon to exam Angelica, she kept saying "Ow!" but wouldn't tell me where it hurt. Asked if she wanted something for pain, she said yes. After I had visited her, she had to urinate, was large amount and she was continent, brief was dry. She did ambulate down cabrales 50 feet with 2 person assist this afternoon and her brother visited and she told him she was "fair to partly cloudy". - Patient Data Vitals - Most Recent: Last Vital Signs Temp 98.2 F 03/06/21 08:00 Pulse 69 03/06/21 08:00 Resp 18 03/06/21 08:00 BP 120/63 03/06/21 08:00 Pulse Ox 100 03/06/21 08:00 Weight - Most Recent: 153 lb I&O - Last 24 Hours: Intake & Output 03/06/21 03/06/2121 06:59 14:59 22:59 Intake Total 1030 Balance 1030 Lab Results Last 24 Hours: Laboratory Results - last 24 hr 03/06/21 03/06/21 Range/Units 06:35 06:35 WBC 5.9 (3.0-10.3) x10-3/uL RBC 4.67 (3.60-5.20) x10(6)uL Hgb 14.8 (11.4-15.5) g/dL Hct 44.4 (34.2-48.2) % MCV 95.1 (76.7-100.5) fL MCH 31.6 (23.9-33.9) pg MCHC 33.3 (31.9-34.8) g/dL RDW 15.5 (12.3-16.5) % Plt Count 172 (151-488) x10(3)uL MPV 8.1 (7.1-12.4) fL Neut % (Auto) 37.6 (30.8-76.2) % Lymph % (Auto) 54.3 H (18.4-52.1) % Ellis % (Auto) 5.5 (4.4-15.7) % Eos % (Auto) 2.2 (0.6-8.1) % Baso % (Auto) 0.4 (0.2-1.5) % Neut # (Auto) 2.2 (1.5-6.3) x10-3/uL Lymph # (Auto) 3.2 (1.0-4.4) x10-3/uL Ellis # (Auto) 0.3 (0.3-1.0) x10-3/uL Eos # (Auto) 0.1 (0.0-0.8) x10-3/uL Baso # (Auto) 0.0 (0.0-0.1) x10-3/uL Sodium 141 (135-145) mmol/L Potassium 3.8 D (3.5-5.3) mmol/L Chloride 108 (100-110) mmol/L Carbon Dioxide 24 (21-32) mmol/L BUN 11 (7-18) mg/dL Creatinine 0.9 (0.55-1.02) mg/dL Est Cr Clr Drug Dosing 49.29 mL/min Estimated GFR (MDRD) > 60 (>60) BUN/Creatinine Ratio 12.2 (9-20) Glucose 88 D (80-116) mg/dL Calcium 8.0 L (8.6-10.2) mg/dL Med Orders - Current: Current Medications Acetaminophen (Acetaminophen 500 Mg Tab) 500 mg PO Q6H PRN PRN Reason: fever/pain Albuterol (Albuterol 8 Gm Inhaler) gm INH Q4H PRN PRN Reason: SOB, wheezing, cough Aripiprazole (Aripiprazole 5 Mg TabOwn Med) 5 mg PO DAILY [facility] Last Admin: 03/06/21 08:02 Dose: 5 mg Documented by: Atorvastatin Calcium (Atorvastatin 10 Mg Tab Own Med) 10 mg PO BEDTIME [facility] Last Admin: 03/05/21 21:07 Dose: 10 mg Documented by: Enoxaparin Sodium (Enoxaparin 40 Mg/0.4 Ml Syringe) 40 mg SUBCUT Q24H [facility] Last Admin: 03/05/21 20:50 Dose: 40 mg Documented by: Lactated Ringer's (Ringers, Lactated) 1,000 mls @ 75 mls/hr IV ASDIRECTED [facility] Last Infusion: 03/06/21 09:14 Dose: 75 mls/hr Documented by: Ketorolac Tromethamine (Ketorolac 30 Mg/Ml Sdv) 30 mg IVPUSH Q6H PRN PRN Reason: Pain (moderate 4-6) Stop: 03/11/21 14:56 Last Admin: 03/06/21 15:04 Dose: 30 mg Documented by: Levothyroxine Sodium (Levothyroxine 150 Mcg Tab Own Med) 150 mcg PO DAILY@0600 [facility] Last Admin: 03/06/21 06:56 Dose: 150 mcg Documented by: Mirtazapine (Mirtazapine 15 Mg Tab Own Med) 15 mg PO BEDTIME [facility] Last Admin: 03/05/21 21:07 Dose: 15 mg Documented by: Carbamazepine [ Tegretol Xr] 200 Mg Cap.Er Own Med 400 mg PO ACBREAKFAST [facility] Last Admin: 03/06/21 06:56 Dose: 400 mg Documented by: Carbamazepine [ Tegretol Xr] 200 Mg Cap.ErOwn Med 200 mg PO DAILY@1200 [facility] Last Admin: 03/06/21 11:31 Dose: 200 mg Documented by: Non-Formulary Medication (Dronabinol [Marinol]) 5 mg PO TIDAC [facility] Hydrocortisone ( Cortef) 10 Mg Tablet Own Med 0 mg PO ACBREAKFAST [facility] Last Admin: 03/06/21 06:56 Dose: 10 mg Documented by: Hydrocortisone [ Cortef] 5 Mg Tablet* *Own Med 15 mg PO ACLUNCH [facility] Last Admin: 03/06/21 11:31 Dose: 15 mg Documented by: Lacosamide [Vimpat] 200 Mg TabletOwn Med 200 mg PO BID [facility] Last Admin: 03/06/21 08:03 Dose: 200 mg Documented by: Non-Formulary Medication (Mag Hydrox/Aluminum Hyd/Simeth [Mylanta Maximum Strength Liq]) 10 ml PO QID PRN PRN Reason: Indigestion Topiramate (Topamax) 100 Mg Tablet Own Med 0 mg PO BEDTIME [facility] Last Admin: 03/05/21 21:07 Dose: 100 mg Documented by: Levetiracetam 750 Mg (Tablet Own Med) 0 mg PO BEDTIME [facility] Last Admin: 03/05/21 21:42 Dose: Not Given Documented by: Levetiracetam] 750 (MgOwn Med) 750 mg PO BID [facility] Last Admin: 03/06/21 08:03 Dose: 750 mg Documented by: Ondansetron HCl (Ondansetron 4 Mg Tab.Dis) 4 mg PO Q4H PRN PRN Reason: Nausea Discontinued Medications Influenza Virus Vaccine (Pharmacy To Dose - Influenza Vaccine) 1 each IM ONETIME ONE Stop: 03/04/21 17:44 Influenza Virus Vaccine (Flu Vacc [id number](6mos Up)/Pf 60 Mcg/0.5 Ml Syringe) 60 mcg IM .ONCE ONE Stop: 03/04/21 18:31 Last Admin: 03/04/21 20:58 Dose: 60 mcg Documented by: Non-Formulary Medication (Levetiracetam [Levetiracetam]) 750 mg PO DAILY [facility] Last Admin: 03/05/21 09:46 Dose: Not Given Documented by: Non-Formulary Medication (Multivitamin With Minerals [Multiple Vitamin]) 1 tab PO DAILY [facility] Last Admin: 03/05/21 09:47 Dose: Not Given Documented by: Lacosamide (Vimpat) 200 Mg Tablet Own Med 0 mg PO BEDTIME [facility] Last Admin: 03/04/21 21:04 Dose: 200 mg Documented by: Non-Formulary Medication (Lacosamide [Vimpat]) 200 mg PO BEDTIME EPI - Exam Urinary Catheter Total Time: 0Days 0Hours General: Alert (awake, responds to her name this afternoon, was just staring this morning), Oriented (person) Neck: Other (Abrasion to left upper lip, swollen upper lip. ) Lungs: Clear to Auscultation, Normal Respiratory Effort Cardiovascular: Regular Rate, Regular Rhythm GI/Abdominal Exam: Normal Bowel Sounds, Soft, Non-Tender, No Distention Extremities: No Pedal Edema Peripheral Pulses: 2+: Radial (L), Radial (R) Skin: Ecchymosis (Left forehead, zygoma, left knee) - Patient Data Lab Results Last 24 hrs: Laboratory Results - last 24 hr 03/06/21 03/06/21 Range/Units 06:35 06:35 WBC 5.9 (3.0-10.3) x10-3/uL RBC 4.67 (3.60-5.20) x10(6)uL Hgb 14.8 (11.4-15.5) g/dL Hct 44.4 (34.2-48.2) % MCV 95.1 (76.7-100.5) fL MCH 31.6 (23.9-33.9) pg MCHC 33.3 (31.9-34.8) g/dL RDW 15.5 (12.3-16.5) % Plt Count 172 (151-488) x10(3)uL MPV 8.1 (7.1-12.4) fL Neut % (Auto) 37.6 (30.8-76.2) % Lymph % (Auto) 54.3 H (18.4-52.1) % Ellis % (Auto) 5.5 (4.4-15.7) % Eos % (Auto) 2.2 (0.6-8.1) % Baso % (Auto) 0.4 (0.2-1.5) % Neut # (Auto) 2.2 (1.5-6.3) x10-3/uL Lymph # (Auto) 3.2 (1.0-4.4) x10-3/uL Ellis # (Auto) 0.3 (0.3-1.0) x10-3/uL Eos # (Auto) 0.1 (0.0-0.8) x10-3/uL Baso # (Auto) 0.0 (0.0-0.1) x10-3/uL Sodium 141 (135-145) mmol/L Potassium 3.8 D (3.5-5.3) mmol/L Chloride 108 (100-110) mmol/L Carbon Dioxide 24 (21-32) mmol/L BUN 11 (7-18) mg/dL Creatinine 0.9 (0.55-1.02) mg/dL Est Cr Clr Drug Dosing 49.29 mL/min Estimated GFR (MDRD) > 60 (>60) BUN/Creatinine Ratio 12.2 (9-20) Glucose 88 D (80-116) mg/dL Calcium 8.0 L (8.6-10.2) mg/dL Result Diagrams: 03/06/21 06:35 03/06/21 06:35 Sepsis Event Note - Evaluation Sepsis Screening Result: No Definite Risk - Focused Exam Vital Signs: Vital Signs Temp Pulse Resp BP Pulse Ox 03/06/21 08:00 98.2 F 69 18 120/63 100 - Problem List & Annotations (1) Recurrent falls SNOMED Code(s): 709976721 Code(s): R29.6 - REPEATED FALLS Status: Acute Current Visit: Yes (2) Elevated serum creatinine SNOMED Code(s): 072199474 Code(s): R79.89 - OTHER SPECIFIED ABNORMAL FINDINGS OF BLOOD CHEMISTRY Status: Resolved Current Visit: Yes Annotation/Comment:: Cr 0.9 today (3) Facial abrasion SNOMED Code(s): 341538559 Code(s): S00.81XA - ABRASION OF OTHER PART OF HEAD, INITIAL ENCOUNTER Status: Acute Current Visit: Yes (4) Gait instability SNOMED Code(s): 65449065 Code(s): R26.81 - UNSTEADINESS ON FEET Status: Acute Current Visit: Yes (5) Generalized weakness SNOMED Code(s): 73936799 Code(s): R53.1 - WEAKNESS Status: Acute Current Visit: Yes (6) Laceration of lip SNOMED Code(s): 809311998 Code(s): S01.511A - LACERATION WITHOUT FOREIGN BODY OF LIP, INITIAL ENCOUNTER Status: Acute Current Visit: Yes (7) Minor head injury SNOMED Code(s): 274062308 Code(s): S09.90XA - UNSPECIFIED INJURY OF HEAD, INITIAL ENCOUNTER Status: Acute Current Visit: Yes (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 Refusing medications sporadically. (10) Failure to thrive SNOMED Code(s): 77998558 Code(s): IAG5270 - Status: Acute Current Visit: Yes - Problem List Review Problem List Initiated/Reviewed/Updated: Yes - My Orders Last 24 Hours: My Active Orders 03/05/21 16:48 Bladder Scan [RC] ASDIRECTED Urinary Catheter Assessment [RC] QSHIFT 03/05/21 17:00 [place] Catheter Insertion [Insert Urinary Catheter] [OM.PC] Q24H 03/06/21 09:09 Ice Bag [Ice Therapy] [OM.PC] Routine 03/06/21 14:53 Ketorolac [Toradol] 30 mg IVPUSH Q6H PRN 03/07/21 06:00 OT Evaluation and Treatment [CONS] Routine - Plan Plan:: 1. Recurrent fall/gait instability/head injury: CT head was negative. Ice as needed to left face/knee. PT/OT consult. 2. Weakness/failure to thrive: Required NG tube feeding for nutrition and medications in [place]. Not PEG tube placement candidate due to previous gastric surgeries. Mom questioned her quality of life as she has been hospitalized since Jan 26, discharged 03/03 and then admitted here next day. She also had admission in December for not eating and drinking, weakness. Would like to talk to Jazmyne Giles more about hospice and intermediate placement. She is sporadically taking her medications and eating, her mom stated that it didn't matter if she was there or not as to how well she ate or took medications. Angelica told her that food was repulsive. They had started Marinol in [place] to help stimulate her appetite. Continue current cares. 3. Elevated Cr/WBC: WBC 5.9, Cr 0.9. LR at 75 ml/hr poor intake. Resolved. 4. Disposition: Needs intermediate placement, question as to hospice referral, family wants to talk with Jazmyne Giles about their options further on Sunday.
[2021-03-06] MEDS: atorvaSTATin 10 MG Tab **OWN MED PO SCH (20:19)
[2021-03-06] MEDS: Mirtazapine 15 MG Tab **OWN MED PO SCH (20:22)
[2021-03-06] MEDS: TOPIRAMATE 100 MG PO SCH (20:22)
[2021-03-06] MEDS: Enoxaparin 40 MG/0.4 ML Syringe SUBCUT SCH (20:23)
[2021-03-07] MEDS: CARBAMAZEPINE 200 MG PO SCH (06:48)
[2021-03-07] MEDS: Levothyroxine 150 MCG Tab **OWN MED PO SCH (06:48)
[2021-03-07] MEDS: HYDROCORTISONE 10 MG PO SCH (06:48)
[2021-03-07] MEDS: Lactated Ringers 1,000 ML IV SCH (07:55)
[2021-03-07] MEDS ORDERED: Aluminum Hydroxide/Magnesium Hydroxide Susp 30 ML Cup PO PRN (08:39)
[2021-03-07] MEDS: LEVETIRACETAM 750 MG PO SCH (09:35)
[2021-03-07] MEDS: ARIPIPRAZOLE 5 MG PO SCH (09:37)
[2021-03-07] MEDS: LACOSAMIDE 200 MG PO SCH (09:39)
--- NOTE | 2021-03-07 10:48 | PCM.DCSUM1 ---
Discharge Summary - Hospital Course HPI Initial Comments: Porsha was admitted yesterday evening after sustaining fall night and Sunday morning at [facility]. She was discharged from [facility] back to assisted living at [facility] after a one month hospitalization for hypernatremia, encephalopathy, seizure disorder. Falls were both unwitnessed, has minor abrasions of face and a minor cut on her upper lip, only pain is her lip. She states she doesn't know how she fell, doesn't remember if she tripped on something, denies her vision going black or having a seizure. She states she doesn't remember the last time she had a seizure. Denies any fever, chills, cough, shortness of breath, chest pain, abdominal pain, no knee pain. No pain with urination. D/c summary from [facility] from 03/03 says "at baseline patient . . . is usually able to ambulate and interact independently." In ER: venipuncture unsuccessful, CBC done off of fingerstick, WBC at 11k (had been 9k and in normal range 2m ago). Covid negative. [employer] Specialist able to start an IV and labs obtained showed mild increase creat 1.1 from baseline, u/a negative. [facility] staff told ER that they were not able to take her back at her present level, that she was requiring more care than they can give her. Admit for observation care, PT consult for Sunday. Diagnosis: Stroke: No - Discharge Data Discharge Date: 03/07/21 ([facility]) Discharge Disposition: DC/Tfer to SNF 03 Condition: Stable - Referral to Home Health Date of Face to Face Encounter: 03/07/21 Reason for Homebound Status: [facility] admit Primary Care Physician: Yordy Phillips MD Skilled Need: PT/OT - Discharge Diagnosis/Problem(s) (1) Recurrent falls SNOMED Code(s): 813858788 ICD Code: R29.6 - REPEATED FALLS Status: Acute Current Visit: Yes (2) Failure to thrive SNOMED Code(s): 56957371 ICD Code: [id number] - Status: Acute Current Visit: Yes (3) Facial abrasion SNOMED Code(s): 329945200 ICD Code: S00.81XA - ABRASION OF OTHER PART OF HEAD, INITIAL ENCOUNTER Status: Acute Current Visit: Yes (4) Gait instability SNOMED Code(s): 94309148 ICD Code: R26.81 - UNSTEADINESS ON FEET Status: Acute Current Visit: Yes (5) Generalized weakness SNOMED Code(s): 64836370 ICD Code: R53.1 - WEAKNESS Status: Acute Current Visit: Yes (6) Laceration of lip SNOMED Code(s): 856318067 ICD Code: S01.511A - LACERATION WITHOUT FOREIGN BODY OF LIP, INITIAL ENCOUNTER Status: Acute Current Visit: Yes (7) Minor head injury SNOMED Code(s): 540886393 ICD Code: S09.90XA - UNSPECIFIED INJURY OF HEAD, INITIAL ENCOUNTER Status: Acute Current Visit: Yes (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 Last seizure was 9 days ago, lasted for 10 min. (10) Elevated serum creatinine SNOMED Code(s): 661578144 ICD Code: R79.89 - OTHER SPECIFIED ABNORMAL FINDINGS OF BLOOD CHEMISTRY Status: Resolved Current Visit: Yes Problem Details: Cr 0.9 today - Patient Summary/Data Consults: Consultations 03/07/21 06:00 OT Evaluation and Treatment [CONS] Routine Please Evaluate and Treat. OT Reason for Consult: ADL's This query below is only for informational purposes and is not editable. Admission Diagnosis/Problem: Fall PT Evaluation and Treatment [CONS] Routine Please Evaluate and Treat. PT Reason for Consult: Ambulation This query below is only for informational purposes and is not editable. Admission Diagnosis/Problem: Fall Hospital Course: Angelica admitted for recurrent falls that occurred evening of 03/03 and morning of 03/04. She had slight elevation of WBC, Hgb and Cr since discharge from [place](had been there 35 days), had hard time getting IV so had to have anesthesia place IV, kept on IV fluids at 50-75 ml/hr during hospitalization to help keep IV open and hydrate as she initially was not eating and drinking well. She initially was not urinating much, bladder scanned for 380 ml, straight catheterized, but then yesterday had large urination on her own, continent in her brief. She ambulated about 50 ft with nursing yesterday. Needs 30 day PT/OT short term rehab stay at [place]. She initially was refusing to eat and take her pills but then did eat about 50% of meals yesterday, and took her pills yesterday and this morning. She was having episodes of staring off, not responding to staff or myself, questioned absence seizures, she has been on Topamax & Tegretol for years per family for her seizures. She had EEG monitoring while in [place] for 2 weeks, started on Keppra & Vimpat at that time. She has been more alert, responsive interacting with staff and family since yesterday afternoon and this morning. Family questioned whether some of her eating issues are connected with her depression has she had been off Abilify while in [place] w hen she had NG tube in, they wanted her to see Dr Flanagan her psychiatrist to see if her medications need to be adjusted. [facility] is able to accept her today, PT/OT there. She received her Flu vaccine on 03/04. Covid test negative on 03/04 and repeat again today. - Patient Instructions Diet: Regular Diet as Tolerated Activity, Other: up with assistance Driving: Do Not Drive Showering/Bathing: May Shower Other/Special Instructions: Follow up with Dr Phillips in 1 week for post hospital check, recheck BMP. Follow up with Dr Flanagan at [facility] in 1 week may be done by virtual visit re: depression management. - Discharge Plan *PRESCRIPTION DRUG MONITORING PROGRAM REVIEWED*: Not Applicable *COPY OF PRESCRIPTION DRUG MONITORING REPORT IN PATIENT ROVERTO: Not Applicable Home Medications: Home Meds Hydrocortisone [Cortef] 10 mg PO ACBREAKFAST 12/23/12 [History] Hydrocortisone [Cortef] 15 mg PO ACLUNCH 12/23/12 [History] Multivitamin with Minerals [Multiple Vitamin] 1 tab PO DAILY 12/23/12 [History] carBAMazepine [TEGretol XR] 400 mg PO ACBREAKFAST 12/23/12 [History] Topiramate [Topamax] 100 mg PO BEDTIME 07/15/13 [History] Meclizine HCl 12.5 mg PO TID PRN 08/18/14 [History] carBAMazepine [TEGretol XR] 200 mg PO 1200 11/27/17 [History] Acetaminophen [Tylenol Extra Strength] 500 mg PO Q6H PRN 11/21/19 [History] atorvaSTATin [Lipitor] 10 mg PO BEDTIME 11/21/19 [History] Albuterol Sulfate [Albuterol Sulfate Hfa] 2 puff IH Q4H PRN 11/22/19 [History] Triamcinolone Acetonide [Triamcinolone Acetonide 0.1% Oint] 1 applic TOP BID PRN 11/22/19 [History] Clotrimazole [Clotrimazole 1%] 1 applic TOP BID PRN 01/13/21 [History] Loperamide [Imodium] 2 mg PO ASDIRECTED PRN 01/13/21 [History] Mag Hydrox/Aluminum Hyd/Simeth [Mylanta Maximum Strength Liq] 10 ml PO QID PRN 01/13/21 [History] Methyl Salicylate/Menthol [Icy Hot Stick] 1 applic TOP DAILY PRN 01/13/21 [History] Polyvinyl Alcohol/Povidone/Pf [Refresh Classic Eye Drops] 1 drop EYEBOTH BID 01/13/21 [History] Ondansetron [Zofran ODT] 4 mg PO Q4H PRN 01/27/21 [History] ARIPiprazole [Abilify] 5 mg PO DAILY 03/04/21 [History] Lacosamide [Vimpat] 200 mg PO BID 03/04/21 [History] Levothyroxine 150 mcg PO DAILY 03/04/21 [History] Mirtazapine 15 mg PO BEDTIME 03/04/21 [History] dronabinoL [Marinol] 5 mg PO TIDAC 03/04/21 [History] levETIRAcetam [Levetiracetam] 750 mg PO BID 03/04/21 [History] Oxygen Therapy Mode: Room Air Forms: ED Department Discharge Referrals: Yordy Phillips MD [Primary Care Provider] - - Discharge Summary/Plan Comment DC Time >30 min.: No Total # of Minutes for Discharge Time: 15 min - General Info Date of Service: 03/07/21 Subjective Update: Angelica is more alert and talkative this morning, feels she is at her baseline. She states she feels well, the breakfast tasted very good, took her pills last night and this morning without issue. Talking with her brother Erik last night, he felt her depression has worsened since she was off Abilify while she had NG in during her stay in [place] that she is worst in the morning and mental clarity improves throughout the day. He stated when he saw her yesterday that she definitely had decline mentally since he last saw her on right before her discharge. He would like her to see her psychiatrist, Dr Flanagan at [facility] to make sure her medications are what she needs to be on. He also stated that her last seizure was 9 days ago that lasted for 10 minutes, she had been on Topamax and Tegretol for years and Keppra & Vimpat are new additions. Functional Status: Reports: Tolerating Diet, Urinating - Patient Data Vitals - Most Recent: Last Vital Signs Temp 97.3 F 03/07/21 00:00 Pulse 59 L 03/07/21 00:00 Resp 16 03/07/21 00:00 BP 164/65 H 03/07/21 00:00 Pulse Ox 100 03/07/21 00:00 Weight - Most Recent: 153 lb I&O - Last 24 hours: Intake & Output 03/06/21 03/07/21 03/07/21 22:59 06:59 14:59 Intake Total 755 600 Balance 755 600 Med Orders - Current: Current Medications Acetaminophen (Acetaminophen 500 Mg Tab) 500 mg PO Q6H PRN PRN Reason: fever/pain Al Hydroxide/Mg Hydroxide (Aluminum Hydroxide/Magnesium Hydroxide Susp 30 Ml Cup) 10 ml PO QID PRN PRN Reason: Indigestion Albuterol (Albuterol 8 Gm Inhaler) 0 gm INH Q4H PRN PRN Reason: SOB, wheezing, cough Aripiprazole (Aripiprazole 5 Mg TabOwn Med) 5 mg PO DAILY EPI Last Admin: 03/07/21 09:37 Dose: 5 mg Documented by: Atorvastatin Calcium (Atorvastatin 10 Mg Tab Own Med) 10 mg PO BEDTIME [facility] Last Admin: 03/06/21 20:19 Dose: 10 mg Documented by: Enoxaparin Sodium (Enoxaparin 40 Mg/0.4 Ml Syringe) 40 mg SUBCUT Q24H [facility] Last Admin: 03/06/21 20:23 Dose: 40 mg Documented by: Lactated Ringer's (Ringers, Lactated) 1,000 mls @ 75 mls/hr IV ASDIRECTED [facility] Last Admin: 03/07/21 07:55 Dose: 75 mls/hr Documented by: Ketorolac Tromethamine (Ketorolac 30 Mg/Ml Sdv) 30 mg IVPUSH Q6H PRN PRN Reason: Pain (moderate 4-6) Stop: 03/11/21 14:56 Last Admin: 03/06/21 15:04 Dose: 30 mg Documented by: Levothyroxine Sodium (Levothyroxine 150 Mcg Tab Own Med) 150 mcg PO DAILY@0600 [facility] Last Admin: 03/07/21 06:48 Dose: 150 mcg Documented by: Mirtazapine (Mirtazapine 15 Mg Tab Own Med) 15 mg PO BEDTIME [facility] Last Admin: 03/06/21 20:22 Dose: 15 mg Documented by: Carbamazepine [ Tegretol Xr] 200 Mg Cap.Er Own Med 400 mg PO ACBREAKFAST [facility] Last Admin: 03/07/21 06:48 Dose: 400 mg Documented by: Carbamazepine [ Tegretol Xr] 200 Mg Cap.ErOwn Med 200 mg PO DAILY@1200 [facility] Last Admin: 03/06/21 11:31 Dose: 200 mg Documented by: Non-Formulary Medication (Dronabinol [Marinol]) 5 mg PO TIDAC [facility] Hydrocortisone ( Cortef) 10 Mg Tablet Own Med 0 mg PO ACBREAKFAST [facility] Last Admin: 03/07/21 06:48 Dose: 10 mg Documented by: Hydrocortisone [ Cortef] 5 Mg Tablet* *Own Med 15 mg PO ACLUNCH [facility] Last Admin: 03/06/21 11:31 Dose: 15 mg Documented by: Lacosamide [Vimpat] 200 Mg TabletOwn Med 200 mg PO BID [facility] Last Admin: 03/07/21 09:39 Dose: 200 mg Documented by: Topiramate (Topamax) 100 Mg Tablet Own Med 0 mg PO BEDTIME [facility] Last Admin: 03/06/21 20:22 Dose: 100 mg Documented by: Levetiracetam 750 Mg (Tablet Own Med) 0 mg PO BEDTIME [facility] Last Admin: 03/06/21 20:19 Dose: Not Given Documented by: Levetiracetam] 750 (MgOwn Med) 750 mg PO BID [facility] Last Admin: 03/07/21 09:35 Dose: 750 mg Documented by: Ondansetron HCl (Ondansetron 4 Mg Tab.Dis) 4 mg PO Q4H PRN PRN Reason: Nausea Discontinued Medications Influenza Virus Vaccine (Pharmacy To Dose - Influenza Vaccine) 1 each IM ONETIME ONE Stop: 03/04/21 17:44 Influenza Virus Vaccine (Flu Vacc [id number](6mos Up)/Pf 60 Mcg/0.5 Ml Syringe) 60 mcg IM .ONCE ONE Stop: 03/04/21 18:31 Last Admin: 03/04/21 20:58 Dose: 60 mcg Documented by: Non-Formulary Medication (Levetiracetam [Levetiracetam]) 750 mg PO DAILY [facility] Last Admin: 03/05/21 09:46 Dose: Not Given Documented by: Non-Formulary Medication (Multivitamin With Minerals [Multiple Vitamin]) 1 tab PO DAILY [facility] Last Admin: 03/05/21 09:47 Dose: Not Given Documented by: Lacosamide (Vimpat) 200 Mg Tablet Own Med 0 mg PO BEDTIME [facility] Last Admin: 03/04/21 21:04 Dose: 200 mg Documented by: Non-Formulary Medication (Lacosamide [Vimpat]) 200 mg PO BEDTIME EPI - Exam General: Reports: Alert, Oriented, Cooperative, No Acute Distress Lungs: Reports: Clear to Auscultation, Normal Respiratory Effort Cardiovascular: Reports: Regular Rate, Regular Rhythm GI/Abdominal Exam: Normal Bowel Sounds, Soft, Non-Tender, No Distention Extremities: No Pedal Edema, Normal Capillary Refill *Q Meaningful Use (DIS) - VTE *Q VTE Mechanical Contraindications *Q: At Risk for Falls
[2021-03-07 15:47] VITALS: BP 133/78; PULSE 68
== END 2021-03-07 11:15 ==
LOC: FB.ED 12:58 → UNDOADMOB 14:06 → FB.MS 14:06
PROVIDERS: ADMIT Emergency Medicine; ATTEND Family Medicine
DX: S00.81XA Abrasion of other part of head, initial encounter (principal); S01.511A Laceration without foreign body of lip, initial encounter; E53.8 Deficiency of other specified B group vitamins; E55.9 Vitamin D deficiency, unspecified; N18.30 Chronic kidney disease, stage 3 unspecified; M81.0 Age-related osteoporosis without current pathological fracture; E11.40 Type 2 diabetes mellitus with diabetic neuropathy, unspecified; E03.9 Hypothyroidism, unspecified; E11.22 Type 2 diabetes mellitus with diabetic chronic kidney disease; E66.9 Obesity, unspecified; F41.9 Anxiety disorder, unspecified; Z20.822 Contact with and (suspected) exposure to COVID-19; W19.XXXA Unspecified fall, initial encounter; Z88.8 Allergy status to other drugs, medicaments and biological substances; Z91.040 Latex allergy status; Z91.012 Allergy to eggs; Z79.899 Other long term (current) drug therapy; Z68.28 Body mass index [BMI] 28.0-28.9, adult
CPT/HCPCS: 36415; 36416; 51701; 70450; 80048; 80053; 81001; 85025; 86140; 90686; 96372; 96374; 99285; A9270; G0008; G0378; J1650; J1885; J7120; U0002

== ENCOUNTER 2021-04-18 16:14 | Observation (INO) | payer MEDICARE, MEDICAID ==
[2021-04-18] MEDS ORDERED: Sodium Chloride 0.9% 10 ML Syringe FLUSH PRN (16:16)
--- NOTE | 2021-04-18 17:40 | CT ---
INDICATION: Fall, head injury, altered level of consciousness. CT CERVICAL SPINE: Spiral 2.5 mm axial sections were obtained through the cervical spine with sagittal and coronal reconstructions, 04/18/21 - no comparisons. TOTAL EXAM DLP: 406.05 mGy/cm. Moderate hypertrophic degenerative changes are noted at the odontoatlantian joint with mild degenerative changes at the occipital condyles - atlantian joints. Mild degenerative change is noted at the uncinate joints in the upper cervical spine to the mid cervical spine, relatively mild degree for the most part. Vertebral elements appear to be fairly well aligned, although a mild degree of dextroconcave scoliosis or left lower right-sided tilt is suggested. There appears to be mild decrease in disc space, at least posteriorly, at C2-3 and C3-4. There appears to be some mild loss of anterior vertebral body volume at C6 and C7, as well as T1. Likely, these changes are chronic, rather than acute. However, there is suspicion of a fracture through the anterior aspect of the T1 vertebral body, which may be acute. Also at T3, there appears to be a moderately severe compression fracture with marked anterior vertebral body volume loss, and fracture lines extending posteriorly along the left lateral aspect of the T3 vertebral body. The spinal canal itself appears to be intact with no spinal stenosis suggested. Prevertebral space and bone density appear to be grossly normal. Neural foramina appear to be fairly patent. IMPRESSION: 1. Fracture suggested at the anterior aspect of the T1 vertebral body and with a more severe compression fracture at T3, both possibly acute. 2. Osteoarthritis, as noted above. Report was called to Dr. Combs at 1710 hours. [facility]
--- NOTE | 2021-04-18 17:48 | EDM.PDOC ---
ED HPI GENERAL MEDICAL PROBLEM - General Chief Complaint: Head Injury Stated Complaint: Fell Time Seen by Provider: 04/18/21 16:25 Source of Information: Reports: Patient, Family History Limitations: Reports: No Limitations - History of Present Illness INITIAL COMMENTS - FREE TEXT/NARRATIVE: Patient presented to the ED because of upper back pain. She was feeing dizzy and weak and fell backwards. There was no LOC, headache, nausea or vomiting after the fall. - Related Data Allergies Allergy/AdvReac Type Severity Reaction Status Date / Time metoclopramide HCl Allergy Severe VIOLENT Verified 04/18/21 19:22 [From Reglan] cephalexin monohydrate Allergy Unknown UNKNOWN Verified 04/18/21 19:22 [From Keflex] clobetasol Allergy Unknown Wheezing Verified 04/18/21 19:22 droperidol Allergy Unknown Leg Cramps Verified 04/18/21 19:22 hydroxyzine HCl Allergy Unknown Agitation Verified 04/18/21 19:22 [From Vistaril] hydroxyzine pamoate Allergy Unknown Agitation Verified 04/18/21 19:22 [From Vistaril] naproxen sodium Allergy Unknown Agitation Verified 04/18/21 19:22 [From Anaprox] levofloxacin [From Levaquin] Allergy Rash Verified 04/18/21 19:22 latex AdvReac Mild Rash Verified 04/18/21 19:22 diphenhydramine HCl AdvReac Unknown Agitation Verified 04/18/21 19:22 [From Benadryl] bandaids Allergy Unknown Rash Uncoded 04/18/21 19:22 eggs Allergy Unknown Nausea and Uncoded 04/18/21 19:22 Vomiting Home Meds: Home Meds Hydrocortisone [Cortef] 10 mg PO ACBREAKFAST 12/23/12 [History] Hydrocortisone [Cortef] 15 mg PO ACLUNCH 12/23/12 [History] Topiramate [Topamax] 50 mg PO BEDTIME 07/15/13 [History] Meclizine HCl 12.5 mg PO TID PRN 08/18/14 [History] Acetaminophen [Tylenol Extra Strength] 500 mg PO Q6H PRN 11/21/19 [History] atorvaSTATin [Lipitor] 10 mg PO BEDTIME 11/21/19 [History] Albuterol Sulfate [Albuterol Sulfate Hfa] 2 puff IH Q4H PRN 11/22/19 [History] Triamcinolone Acetonide [Triamcinolone Acetonide 0.1% Oint] 1 applic TOP BID PRN 11/22/19 [History] Clotrimazole [Clotrimazole 1%] 1 applic TOP BID PRN 01/13/21 [History] Methyl Salicylate/Menthol [Icy Hot Stick] 1 applic TOP DAILY PRN 01/13/21 [History] Ondansetron [Zofran ODT] 4 mg PO Q4H PRN 01/27/21 [History] Lacosamide [Vimpat] 200 mg PO BID 03/04/21 [History] Levothyroxine 150 mcg PO DAILY 03/04/21 [History] Mirtazapine 22.5 mg PO BEDTIME 03/04/21 [History] dronabinoL [Marinol] 5 mg PO TIDAC 03/04/21 [History] levETIRAcetam [Levetiracetam] 750 mg PO BID 03/04/21 [History] Carboxymethylcellulose Sodium [Artificial Tears] 1 drop EYEBOTH BID 04/18/21 [History] Mag Hydrox/Al Hydrox/Simeth [Kenia-Lanta] 10 ml PO ASDIRECTED PRN 04/18/21 [History] Multivit-Min/FA/Lycopene/Lut [Senior Tabs] 1 tab PO DAILY 04/18/21 [History] Sennosides/Docusate Sodium [Senna-S] 1 each PO BID 04/18/21 [History] ARIPiprazole [Abilify] 7.5 mg PO DAILY 04/19/21 [History] carBAMazepine [Tegretol XR] 200 mg PO BID 04/19/21 [History] Past Medical History HEENT History: Reports: Cataract, Impaired Vision, Other (See Below) Other HEENT History: ambyyopia, presbyopia,peripheral vertigo unidentified ear wears glasses, 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; LEGALLY BLIND IN RIGHT EYE Cardiovascular History: Reports: Arrhythmia, Blood Clots/VTE/DVT, Other (See Below) Other Cardiovascular History: bradycardia, edema, orthostatic hypotension Respiratory History: Reports: None Gastrointestinal History: Reports: Chronic Diarrhea, Colon Polyp, Other (See Below) Other Gastrointestinal History: VITAMIN B 12 DEFICIENCY, IRON DEFICIENCY, VITAMIN D DEFICIENCY; POST SMALL BOWEL SURGERY; CHRONIC DIARRHEA, LOW POTASSIUM, CHRONIC Genitourinary History: Reports: Renal Disease, Other (See Below) Other Genitourinary History: kidney disease; [employer] History: Reports: None Musculoskeletal History: Reports: Arthritis, Back Pain, Chronic, Osteoarthritis, Osteoporosis, Other (See Below) Other Musculoskeletal History: restless leg syndrome,arthropathy, chronic low back pain, neuropathy Neurological History: Reports: Headaches, Chronic, Migraines, Neuropathy, Diabetic, Seizure, Vertigo, Other (See Below) Other Neuro History: epilepsy, anxiety, manic disorder, vertigo, depression, HYPOPOPITUITARISM, RESTLESS LEG SYNDROME Psychiatric History: Reports: Anxiety, Bipolar, Depression, Other (See Below) Other Psychiatric History: manic episode without psychotic symptoms,mood disorder Endocrine/Metabolic History: Reports: Diabetes, Type II, Hypothyroidism, Obesity/BMI 30+, Vitamin D Deficiency, Other (See Below) Other Endocrine/Metabolic History: panhypopituitarism, thyroid disease, neuropathy, VIT B DEF Hematologic History: Reports: Anemia, B12 Deficiency, Iron Deficiency, Other (See Below) Other Hematologic History: iron deficiency anemia, hx of blood clots Immunologic History: Reports: None Oncologic (Cancer) History: Reports: None Dermatologic History: Reports: Other (See Below) Other Dermatologic History: skin disease - Infectious Disease History Infectious Disease History: Reports: Chicken Pox, Measles, Mumps - Past Surgical History Head Surgeries/Procedures: Reports: Craniotomy, Other (See Below) HEENT Surgical History: Reports: Cataract Surgery, Other (See Below) Other HEENT Surgeries/Procedures: brain surgery Cardiovascular Surgical History: Reports: None Respiratory Surgical History: Reports: None GI Surgical History: Reports: Appendectomy, Bariatric Procedure, Cholecystectomy, Colonoscopy, Small Bowel, Other (See Below) Other GI Surgeries/Procedures: small intestine surgery, stomach surgery Female Surgical History: Reports: None Endocrine Surgical History: Reports: Pituitary Tumor Resection Other Neurological Surgeries/Procedures: patient states that 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 Musculoskeletal Surgical History: Reports: Other (See Below) Other Musculoskeletal Surgeries/Procedures:: RIGHT hammer toes, RIGHT foot surgery Oncologic Surgical History: Reports: None Dermatological Surgical History: Reports: Skin Biopsy Social & Family History - Family History Family Medical History: No Pertinent Family History - Caffeine Use Caffeine Use: Reports: Coffee ED ROS GENERAL - Review of Systems Review Of Systems: See Below Constitutional: Reports: No Symptoms HEENT: Reports: No Symptoms Respiratory: Reports: No Symptoms Cardiovascular: Reports: No Symptoms Endocrine: Reports: No Symptoms GI/Abdominal: Reports: No Symptoms : Reports: No Symptoms Musculoskeletal: Reports: Back Pain Skin: Reports: No Symptoms Neurological: Reports: No Symptoms Psychiatric: Reports: No Symptoms ED EXAM, HEAD INJURY - Physical Exam Exam: See Below Exam Limited By: No Limitations General Appearance: Alert, No Apparent Distress Head: Atraumatic, Normocephalic Ears: Normal External Exam, Normal Canal, Hearing Grossly Normal, Normal TMs Nose: Normal Inspection, Normal Mucousa, No Blood Throat/Mouth: Normal Inspection, Normal Lips, Normal Teeth, Normal Gums, Normal Oropharynx, Normal Voice Neck: Non-Tender, Full Range of Motion, Normal Alignment Respiratory: No Respiratory Distress, Lungs Clear, Normal Breath Sounds, No Accessory Muscle Use Cardiovascular: Normal Peripheral Pulses, Regular Rate, Rhythm GI/Abdominal Exam: Normal Bowel Sounds, Soft, Non-Tender, No Organomegaly, No Distention, No Abnormal Bruit Back Exam: Normal Inspection, Full Range of Motion, Muscle Spasm, Paraspinal Tenderness, Vertebral Tenderness Extremities: Normal Inspection, Normal Range of Motion, Non-Tender, No Pedal Edema, Normal Capillary Refill Course - Vital Signs Text/Narrative:: Lab/Head/Thoracic/Lumbar CT,Xray -c-spine, result waas reviewed and discussed with patient Back brace Last Recorded V/S: Last Vital Signs Temp 36.4 C 04/19/21 08:00 Pulse 60 04/19/21 08:00 Resp 16 04/19/21 08:00 BP 170/68 H 04/19/21 08:00 Pulse Ox 98 04/19/21 08:00 - Orders/Labs/Meds Labs: Laboratory Tests 04/18/21 04/18/21 04/18/21 Range/Units 17:10 17:20 17:20 WBC 7.0 (3.0-10.3) x10-3/uL RBC 4.44 (3.60-5.20) x10(6)uL Hgb 14.2 (11.4-15.5) g/dL Hct 43.1 (34.2-48.2) % MCV 97.0 (76.7-100.5) fL MCH 32.1 (23.9-33.9) pg MCHC 33.0 (31.9-34.8) g/dL RDW 14.6 (12.3-16.5) % Plt Count 184 (151-488) x10(3)uL MPV 7.5 (7.1-12.4) fL Neut % (Auto) 55.8 (30.8-76.2) % Lymph % (Auto) 35.8 (18.4-52.1) % Bland % (Auto) 6.8 (4.4-15.7) % Eos % (Auto) 1.0 (0.6-8.1) % Baso % (Auto) 0.6 (0.2-1.5) % Neut # (Auto) 3.9 (1.5-6.3) x10-3/uL Lymph # (Auto) 2.5 (1.0-4.4) x10-3/uL Bland # (Auto) 0.5 (0.3-1.0) x10-3/uL Eos # (Auto) 0.1 (0.0-0.8) x10-3/uL Baso # (Auto) 0.0 (0.0-0.1) x10-3/uL PT 12.1 H (9.0-11.1) sec INR 1.13 (1.00-1.24) APTT 24.6 (24.4-33.2) SECONDS Sodium (135-145) mmol/L Potassium (3.5-5.3) mmol/L Chloride (100-110) mmol/L Carbon Dioxide (21-32) mmol/L BUN (7-18) mg/dL Creatinine (0.55-1.02) mg/dL Est Cr Clr Drug Dosing Estimated GFR (MDRD) (>60) BUN/Creatinine Ratio (9-20) Glucose (80-116) mg/dL Calcium (8.6-10.2) mg/dL Total Bilirubin (0.1-1.3) mg/dL AST (5-25) IU/L ALT (12-36) U/L Alkaline Phosphatase (56-112) IU/L Creatine Kinase (60-160) IU/L Troponin I (4.0-60.3) pg/mL Total Protein (6.0-8.0) g/dL Albumin (3.2-4.6) g/dL Globulin g/dL Albumin/Globulin Ratio SARS-CoV-2 RNA (SHANDA) Negative (NEGATIVE) 04/18/21 04/18/21 Range/Units 17:20 17:20 WBC (3.0-10.3) x10-3/uL RBC (3.60-5.20) x10(6)uL Hgb (11.4-15.5) g/dL Hct (34.2-48.2) % MCV (76.7-100.5) fL MCH (23.9-33.9) pg MCHC (31.9-34.8) g/dL RDW (12.3-16.5) % Plt Count (151-488) x10(3)uL MPV (7.1-12.4) fL Neut % (Auto) (30.8-76.2) % Lymph % (Auto) (18.4-52.1) % Bland % (Auto) (4.4-15.7) % Eos % (Auto) (0.6-8.1) % Baso % (Auto) (0.2-1.5) % Neut # (Auto) (1.5-6.3) x10-3/uL Lymph # (Auto) (1.0-4.4) x10-3/uL Bland # (Auto) (0.3-1.0) x10-3/uL Eos # (Auto) (0.0-0.8) x10-3/uL Baso # (Auto) (0.0-0.1) x10-3/uL PT (9.0-11.1) sec INR (1.00-1.24) APTT (24.4-33.2) SECONDS Sodium 138 (135-145) mmol/L Potassium 3.5 (3.5-5.3) mmol/L Chloride 103 D (100-110) mmol/L Carbon Dioxide 27 (21-32) mmol/L BUN 12 (7-18) mg/dL Creatinine 1.0 (0.55-1.02) mg/dL Est Cr Clr Drug Dosing TNP Estimated GFR (MDRD) 56 L (>60) BUN/Creatinine Ratio 12.0 (9-20) Glucose 119 H (80-116) mg/dL Calcium 8.4 L (8.6-10.2) mg/dL Total Bilirubin 0.4 (0.1-1.3) mg/dL AST 31 H (5-25) IU/L ALT 36 D (12-36) U/L Alkaline Phosphatase 213 H (56-112) IU/L Creatine Kinase 261 H (60-160) IU/L Troponin I 8.7 (4.0-60.3) pg/mL Total Protein 6.7 (6.0-8.0) g/dL Albumin 3.1 L (3.2-4.6) g/dL Globulin 3.6 g/dL Albumin/Globulin Ratio 0.9 SARS-CoV-2 RNA (SHANDA) (NEGATIVE) Meds: Medications Discontinued Medications Generic Name Dose Route Start Last Admin Trade Name Freq PRN Reason Stop Dose Admin Acetaminophen 500 mg 04/18/21 19:38 Acetaminophen 500 Mg Tab PO Q6H PRN fever/pain Hydrocodone Bitart/Acetaminophen 1 tab 04/18/21 19:33 04/18/21 20:10 Acetaminophen/Hydrocodone 325-5 Mg Tab PO 1 tab Q4H PRN Administration Pain (moderate 4-6) Albuterol gm 04/18/21 19:38 Albuterol 8 Gm Inhaler INH Q4H PRN SOB, wheezing, cough Atorvastatin Calcium 10 mg 04/18/21 21:00 Atorvastatin 10 Mg Tab *Ptom* PO BEDTIME EPI Atorvastatin Calcium 10 mg 04/18/21 21:00 04/18/21 21:19 Atorvastatin 10 Mg Tab PO 04/18/21 21:01 10 mg BEDTIME EPI Administration Carbamazepine 200 mg 04/18/21 21:00 04/18/21 21:21 Carbamazepine 200 Mg Tab.Er PO 04/18/21 21:01 200 mg ONETIME ONE Administration Clotrimazole gm 04/18/21 19:38 Clotrimazole 1% Crm 15 Gm Tube TOP BID PRN Rash Dronabinol 5 mg 04/19/21 08:30 04/19/21 10:09 Dronabinol 2.5 Mg Cap PO Not Given TIDAC EPI Levetiracetam 750 mg 04/18/21 21:00 04/18/21 21:19 Levetiracetam 250 Mg Tab PO 04/18/21 21:01 750 mg ONETIME ONE Administration Levothyroxine Sodium 150 mcg 04/19/21 08:00 04/19/21 10:09 Levothyroxine 150 Mcg Tab *Ptom* PO Not Given DAILY@0600 EPI Meclizine HCl 12.5 mg 04/18/21 19:38 Meclizine 12.5 Mg Tab PO TID PRN vertigo/dizziness Mirtazapine 22.5 mg 04/18/21 21:00 04/18/21 21:20 Mirtazapine 15 Mg Tab PO 04/18/21 21:01 22.5 mg ONETIME ONE Administration Morphine Sulfate 2 mg 04/18/21 21:32 Morphine 2 Mg/Ml Syringe IVPUSH Q2H PRN Pain Aripiprazole ( 7.5 each 04/19/21 09:00 04/19/21 10:10 Abilify) 15mg PO Not Given DAILY EPI Carbamazepine [ 200 mg 04/18/21 21:00 04/19/21 10:09 Tegretol Xr] 200 Mg PO Not Given Tab *Ptom* BID EPI Non-Formulary Medication 1 drop 04/18/21 21:00 Carboxymethylcellulose Sodium [Artificial Tears] EYEBOTH BID EPI Hydrocortisone [ 15 mg 04/19/21 11:30 Cortef] 10 Mg Tablet PO *Ptom* ACLUNCH EPI Hydrocortisone [ 10 mg 04/19/21 07:30 04/19/21 10:09 Cortef] 10 Mg Tablet PO Not Given ACBREAKFAST EPI Lacosamide [Vimpat] 200 mg 04/18/21 21:00 04/19/21 10:09 200 Mg Tablet *Ptom* PO Not Given BID EPI Levetiracetam 750 Mg 750 mg 04/18/21 21:00 04/19/21 10:09 Tablet *Ptom* PO Not Given BID EPI Non-Formulary Medication 10 ml 04/18/21 19:38 Mag Hydrox/Al Hydrox/Simeth [Kenia-Lanta] PO ASDIRECTED PRN GI distress Non-Formulary Medication 1 applic 04/18/21 19:38 Methyl Salicylate/Menthol [Icy Hot Stick] TOP DAILY PRN NECK PAIN Mirtazapine 45mg * 22.5 each 04/19/21 21:00 Ptom* PO BEDTIME EPI Non-Formulary Medication 1 tab 04/19/21 09:00 Multivit-Min/Fa/Lycopene/Lut [Senior Tabs] PO DAILY EPI Topiramate [Topamax] 50 mg 04/18/21 21:00 50 Mg Tablet *Ptom* PO BEDTIME EPI Ondansetron HCl 4 mg 04/18/21 19:33 Ondansetron 4 Mg/2 Ml Sdv IV Q4H PRN Nausea/Vomiting Oxycodone/Acetaminophen 2 tab 04/18/21 21:33 04/19/21 09:57 Acetaminophen/Oxycodone 325-5 Mg Tab PO 2 tab Q4H PRN Administration Pain Senna/Docusate Sodium 1 tab 04/18/21 19:33 Docusate Sodium/Sennosides 50-8.6 Mg Tab PO BID PRN Constipation Senna/Docusate Sodium tab 04/18/21 21:00 Docusate Sodium/Sennosides 50-8.6 Mg Tab PO BID EPI Sodium Chloride 10 ml 04/18/21 16:16 Sodium Chloride 0.9% 10 Ml Syringe FLUSH ASDIRECTED PRN Keep Vein Open Topiramate 50 mg 04/18/21 21:00 04/18/21 21:21 Topiramate 50 Mg Tab PO 04/18/21 21:01 50 mg ONETIME ONE Administration Triamcinolone Acetonide gm 04/18/21 19:38 Triamcinolone Acetonide 0.1% Oint 15 Gm Tube TOP BID PRN affected area Departure - Departure Time of Disposition: 17:35 Disposition: Refer to Observation Condition: Good Clinical Impression: Thoracic compression fracture - Discharge Information
--- NOTE | 2021-04-18 18:00 | CT ---
INDICATION: Fall, back pain. LUMBAR SPINE CT: Spiral 2.5 mm axial sections were obtained through the lumbosacral spine without contrast with sagittal and coronal reconstructions, 04/18/21 - no comparisons. Additional angled axial reconstructions were obtained through L3-4, L4-5 and L5-S1. TOTAL EXAM DLP: 711.45 mGy/cm. Compression fracture at T12 is noted, which may be entirely old, although an acute compression is difficult to exclude without old films for comparison. The lumbar vertebral body and disc heights were well maintained without evidence of a lumbar fracture site, or dislocation. There were some degenerative changes at the L4-5 and L5-S1 apophyseal joints of moderate degree. Degenerative changes were also noted at the sacroiliac joints. No evidence of significant disc herniation or spinal stenosis was identified. IMPRESSION: Lumbosacral spine negative for acute fracture or dislocation. Report was called to Dr. Combs at 1710. [facility]
[2021-04-18] MEDS ORDERED: Acetaminophen/HYDROcodone 325-5 MG Tab PO PRN (19:33)
[2021-04-18] MEDS ORDERED: Ondansetron 4 MG/2 ML SDV IV PRN (19:33)
[2021-04-18] MEDS ORDERED: Non-Formulary Medication 1 Each (Mag Hydrox/Al Hydrox/Simeth [Geri-Lanta] 355 ML Oral.Susp PO PRN (19:38)
[2021-04-18] MEDS ORDERED: METHYL SALICYLATE TOP PRN (19:38)
[2021-04-18] MEDS ORDERED: [UNRECOGNIZED DRUG - OTHER] TOP PRN (19:38)
[2021-04-18] MEDS ORDERED: Triamcinolone Acetonide 0.1% Oint 15 GM Tube TOP PRN (19:38)
[2021-04-18] MEDS ORDERED: MENTHOL TOP PRN (19:38)
[2021-04-18] MEDS ORDERED: Meclizine 12.5 MG Tab PO PRN (19:38)
[2021-04-18] MEDS ORDERED: Clotrimazole 1% Crm 15 GM Tube TOP PRN (19:38)
[2021-04-18] MEDS ORDERED: Albuterol 8 GM Inhaler INH PRN (19:38)
[2021-04-18] MEDS ORDERED: Acetaminophen 500 MG Tab PO PRN (19:38)
[2021-04-18] MEDS ORDERED: CARBAMAZEPINE 200 MG PO SCH (21:00)
[2021-04-18] MEDS ORDERED: LEVETIRACETAM 750 MG PO SCH (21:00)
[2021-04-18] MEDS ORDERED: Mirtazapine 15 MG Tab PO ONE (21:00)
[2021-04-18] MEDS ORDERED: Topiramate 50 MG Tab PO ONE (21:00)
[2021-04-18] MEDS ORDERED: Non-Formulary Medication 1 Each (Carboxymethylcellulose Sodium [Artificial Tears] 15 ML Dr EYEBOTH SCH (21:00)
[2021-04-18] MEDS ORDERED: atorvaSTATin 10 MG Tab *PTOM PO SCH (21:00)
[2021-04-18] MEDS ORDERED: TOPIRAMATE 50 MG PO SCH (21:00)
[2021-04-18] MEDS ORDERED: atorvaSTATin 10 MG Tab PO SCH (21:00)
[2021-04-18] MEDS ORDERED: LACOSAMIDE 200 MG PO SCH (21:00)
[2021-04-18] MEDS ORDERED: carBAMazepine 200 MG TAB.ER PO ONE (21:00)
[2021-04-18] MEDS ORDERED: levETIRAcetam 250 MG Tab PO ONE (21:00)
[2021-04-18] MEDS ORDERED: Morphine 2 MG/ML SYRINGE IVPUSH PRN (21:32)
[2021-04-19] MEDS: Acetaminophen/oxyCODONE 325-5 MG Tab PO PRN ×2 (00:50→09:57)
[2021-04-19 01:11] VITALS: PULSE 60
[2021-04-19] MEDS ORDERED: HYDROCORTISONE 10 MG PO SCH ×2 (07:30→11:30)
--- NOTE | 2021-04-19 07:44 | CT ---
CT HEAD WITHOUT CONTRAST INDICATION: Fall. Head injury. TECHNIQUE: Spiral 3.75 mm axial sections were obtained through the brain without contrast with axial, sagittal and coronal reconstructions, 04/18/21, and compared with 03/04/21. TOTAL EXAM DLP: 1167.68 mGy/cm. FINDINGS: Prominent cerebellar calcifications are again noted and unchanged. Encephalomalacia is again noted in the frontotemporoparietal area on the right with marked enlargement of the frontal horn of the right lateral ventricle, as well as moderate enlargement of the body of the right lateral ventricle. There is a slight shift of midline structures at the frontal lobe area seen previously. No definite new abnormal areas of density were identified - no bleeding site or hematoma was seen. Evidence of craniotomy on the right is again noted. The visualized paranasal sinuses appear to be well aerated, as are the mastoid air cells. The orbits appear to be intact. Craniotomy site appears essentially unchanged. IMPRESSION: 1. No acute intracranial abnormalities. 2. Encephalomalacia and enlargement of the right lateral ventricle, with postsurgical changes in the right frontoparietotemporal area. 3. Calcifications again noted in the cerebellar hemispheres bilaterally and moderately symmetrically. Report was called to Dr. Combs at 1710 hours. [facility]
--- NOTE | 2021-04-19 07:47 | CT ---
CT THORACIC SPINE INDICATION: Fall, back pain. TECHNIQUE: Spiral 2.5 mm axial sections were obtained through the thoracic spine without contrast with sagittal and coronal reconstructions, 04/18/21 - no comparisons. TOTAL EXAM DLP: 498.37 mGy/cm. FINDINGS: Fractures with compression are noted anteriorly at T1 and T3, more severe at T3 and appear to be at least partially acute. There are also compression fracture minimally at T8 and more minimally at T9, which likely are old. More prominent compression fracture is noted at T12, which may be old, although acute compression could also be present in that area. Otherwise, vertebral body and disc heights were maintained. Moderately extensive fibrotic-appearing changes are noted in the lower lobes bilaterally and to a lesser extent in the right upper lobe and minimally in the left upper lobe. IMPRESSION: 1. Multiple compression fractures, as noted above. The only definite acute- appearing compression fractures are at T1 and T3, with other compression fractures, possibly only chronic in nature at T8, T9 and T12. 2. Pulmonary fibrosis is likely, with difficulty in excluding areas of minimal patchy bronchopneumonia in the lower lung baker due to the heavy markings. 3. Also noted is a subpleural density at the right lower lobe, which may represent fibrotic change, however the possibility of neoplasia is difficult to entirely exclude and this finding should be correlated clinically. Report was called to Dr. Combs at 1710 hours. [facility]
[2021-04-19] MEDS ORDERED: Levothyroxine 150 MCG Tab *PTOM PO SCH (08:00)
[2021-04-19] MEDS ORDERED: Dronabinol 2.5 MG Cap PO SCH (08:30)
[2021-04-19] MEDS ORDERED: [UNRECOGNIZED DRUG - OTHER] PO SCH (09:00)
[2021-04-19] MEDS ORDERED: ARIPIPRAZOLE 15 MG PO SCH (09:00)
--- NOTE | 2021-04-19 10:03 | PCM.HP.2 ---
H&P History of Present Illness - General Date of Service: 04/19/21 Admit Problem/Dx: Admission Diagnosis/Problem Admission Diagnosis/Problem Compression fracture of thoracic vertebra Source of Information: Patient History Limitations: Reports: Altered Mental Status - History of Present Illness Initial Comments - Free Text/Narative: 65-year-old lady has a significant past medical history including multiple diagnoses relating to dental impairments apparently fell at her [place] [facility]. After I spoke with her for a few moments she states that she remembers that she became dizzy and fell backwards and landed on the back of her head and on the upper back. She thinks that she did lose consciousness. She was taken to her outpatient doctor clinic and evaluated and sent to the emergency department for full emanation. CT of the cervical, thoracic, lumbar spine showed possible acute fractures at T1 and T3 with possible chronic fractures at other thoracic vertebrae as well as degenerative changes throughout the cervical, thoracic, and lumbar spine. At the time that I examined and interviewed the patient this morning the patient states that she feels much better and has no significant/acute complaints. Her biggest concern is having to wear the brace on her upper body will cause her to be teased and made fun of by the other residents at the [place] [facility]. - Related Data Allergies/Adverse Reactions: Allergies Allergy/AdvReac Type Severity Reaction Status Date / Time metoclopramide HCl Allergy Severe VIOLENT Verified 04/18/21 19:22 [From Reglan] cephalexin monohydrate Allergy Unknown UNKNOWN Verified 04/18/21 19:22 [From Keflex] clobetasol Allergy Unknown Wheezing Verified 04/18/21 19:22 droperidol Allergy Unknown Leg Cramps Verified 04/18/21 19:22 hydroxyzine HCl Allergy Unknown Agitation Verified 04/18/21 19:22 [From Vistaril] hydroxyzine pamoate Allergy Unknown Agitation Verified 04/18/21 19:22 [From Vistaril] naproxen sodium Allergy Unknown Agitation Verified 04/18/21 19:22 [From Anaprox] levofloxacin [From Levaquin] Allergy Rash Verified 04/18/21 19:22 latex AdvReac Mild Rash Verified 04/18/21 19:22 diphenhydramine HCl AdvReac Unknown Agitation Verified 04/18/21 19:22 [From Benadryl] bandaids Allergy Unknown Rash Uncoded 04/18/21 19:22 eggs Allergy Unknown Nausea and Uncoded 04/18/21 19:22 Vomiting Home Medications: Home Meds Hydrocortisone [Cortef] 10 mg PO ACBREAKFAST 12/23/12 [History] Hydrocortisone [Cortef] 15 mg PO ACLUNCH 12/23/12 [History] Topiramate [Topamax] 50 mg PO BEDTIME 07/15/13 [History] Meclizine HCl 12.5 mg PO TID PRN 08/18/14 [History] Acetaminophen [Tylenol Extra Strength] 500 mg PO Q6H PRN 11/21/19 [History] atorvaSTATin [Lipitor] 10 mg PO BEDTIME 11/21/19 [History] Albuterol Sulfate [Albuterol Sulfate Hfa] 2 puff IH Q4H PRN 11/22/19 [History] Triamcinolone Acetonide [Triamcinolone Acetonide 0.1% Oint] 1 applic TOP BID PRN 11/22/19 [History] Clotrimazole [Clotrimazole 1%] 1 applic TOP BID PRN 01/13/21 [History] Methyl Salicylate/Menthol [Icy Hot Stick] 1 applic TOP DAILY PRN 01/13/21 [History] Ondansetron [Zofran ODT] 4 mg PO Q4H PRN 01/27/21 [History] Lacosamide [Vimpat] 200 mg PO BID 03/04/21 [History] Levothyroxine 150 mcg PO DAILY 03/04/21 [History] Mirtazapine 22.5 mg PO BEDTIME 03/04/21 [History] dronabinoL [Marinol] 5 mg PO TIDAC 03/04/21 [History] levETIRAcetam [Levetiracetam] 750 mg PO BID 03/04/21 [History] Carboxymethylcellulose Sodium [Artificial Tears] 1 drop EYEBOTH BID 04/18/21 [History] Mag Hydrox/Al Hydrox/Simeth [Kenia-Lanta] 10 ml PO ASDIRECTED PRN 04/18/21 [History] Multivit-Min/FA/Lycopene/Lut [Senior Tabs] 1 tab PO DAILY 04/18/21 [History] Sennosides/Docusate Sodium [Senna-S] 1 each PO BID 04/18/21 [History] ARIPiprazole [Abilify] 7.5 mg PO DAILY 04/19/21 [History] carBAMazepine [Tegretol XR] 200 mg PO BID 04/19/21 [History] Past Medical History HEENT History: Reports: Cataract, Impaired Vision, Other (See Below) Other HEENT History: Amblyopia. Presbyopia. Peripheral vertigo. Wears glasses. 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 Cardiovascular History: Reports: Arrhythmia, Blood Clots/VTE/DVT, Other (See Below) Other Cardiovascular History: Bradycardia. Edema. Orthostatic hypotension. Respiratory History: Reports: None Gastrointestinal History: Reports: Chronic Diarrhea, Colon Polyp, Other (See Below) Other Gastrointestinal History: Vitamin B 12 deficiency. Iron deficiency. Vitamin D deficiency. Small bowel surgery. Chronic diarrhea. Low potassium. Genitourinary History: Reports: Renal Disease, Other (See Below) Other Genitourinary History: Kidney disease, stage III. SERVICE DISMANTLER History: Reports: None Musculoskeletal History: Reports: Arthritis, Back Pain, Chronic, Osteoarthritis, Osteoporosis, Other (See Below) Other Musculoskeletal History: Restless leg syndrome. Arthropathy. Chronic low back pain. Neuropathy. Neurological History: Reports: Headaches, Chronic, Migraines, Neuropathy, Diabetic, Seizure, Vertigo, Other (See Below) Other Neuro History: Epilepsy. Anxiety. Manic disorder. Vertigo. Depression. Hypopituitarism. Restless leg syndrome. Psychiatric History: Reports: Anxiety, Bipolar, Depression, Other (See Below) Other Psychiatric History: Manic episode without psychotic symptoms. Mood disorder. Endocrine/Metabolic History: Reports: Diabetes, Type II, Hypothyroidism, Obesity/BMI 30+, Vitamin D Deficiency, Other (See Below) Other Endocrine/Metabolic History: Panhypopituitarism. Thyroid disease. Neuropathy. Vitamin B deficiency. Hematologic History: Reports: Anemia, B12 Deficiency, Iron Deficiency, Other (See Below) Other Hematologic History: Iron deficiency anemia. History of blood clots. Immunologic History: Reports: None Oncologic (Cancer) History: Reports: None Dermatologic History: Reports: Other (See Below) Other Dermatologic History: Skin disease. - Infectious Disease History Infectious Disease History: Reports: Chicken Pox, Measles, Mumps - Past Surgical History Head Surgeries/Procedures: Reports: Craniotomy, Other (See Below) HEENT Surgical History: Reports: Cataract Surgery, Other (See Below) Other HEENT Surgeries/Procedures: brain surgery Cardiovascular Surgical History: Reports: None Respiratory Surgical History: Reports: None GI Surgical History: Reports: Appendectomy, Bariatric Procedure, Cholecystectomy, Colonoscopy, Small Bowel, Other (See Below) Other GI Surgeries/Procedures: small intestine surgery, stomach surgery Female Surgical History: Reports: None Endocrine Surgical History: Reports: Pituitary Tumor Resection Other Neurological Surgeries/Procedures: patient states that 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 Musculoskeletal Surgical History: Reports: Other (See Below) Other Musculoskeletal Surgeries/Procedures:: RIGHT hammer toes, RIGHT foot surgery Oncologic Surgical History: Reports: None Dermatological Surgical History: Reports: Skin Biopsy Social & Family History - Family History Family Medical History: No Pertinent Family History - Tobacco Use Tobacco Use Status *Q: Never Tobacco User Second Hand Smoke Exposure: No - Caffeine Use Caffeine Use: Reports: Coffee - Recreational Drug Use Recreational Drug Use: No H&P Review of Systems - Review of Systems: Review Of Systems: See Below Free Text/Narrative: Patient states that she does have a headache but only intermittently. She does not have any pain in her neck but finds it difficulty to turn her head with her brace on and she has no other significant acute complaints other than the fear of being made fun of when she returns to the [place] [facility]. General: Reports: Weakness HEENT: Reports: Headaches Pulmonary: Reports: No Symptoms Cardiovascular: Reports: No Symptoms Gastrointestinal: Reports: No Symptoms Genitourinary: Reports: No Symptoms Musculoskeletal: Reports: Back Pain, Muscle Pain Psychiatric: Reports: Depression, Mood Lability, Anxiety Neurological: Reports: No Symptoms Hematologic/Lymphatic: Reports: No Symptoms Immunologic: Reports: No Symptoms Exam - Exam Exam: See Below - Vital Signs Vital Signs: Last Vital Signs Temp 36.1 C 04/19/21 04:00 Pulse 60 04/19/21 04:00 Resp 16 04/19/21 04:00 BP 168/60 H 04/19/21 04:00 Pulse Ox 99 04/19/21 04:00 Weight: 69.598 kg - Exam General: Alert, Oriented, Cooperative, Mild Distress HEENT: Other (Right exotropia) Neck: Supple, Other (Range of motion testing is limited due to upper back brace, there is no tenderness to palpation over the spinous process or paraspinal musculature) Lungs: Clear to Auscultation Cardiovascular: Regular Rate, Regular Rhythm GI/Abdominal Exam: Normal Bowel Sounds, Soft, Non-Tender Back Exam: Other (Patient is wearing thoracic spinal brace, there was no significant tenderness to palpation over the vertebral processes) Extremities: Pedal Edema Peripheral Pulses: 2+: Brachial (L), Brachial (R), Dorsalis Pedis (L), Dorsalis Pedis (R) Skin: Warm, Dry Neurological: Other (Patient was able to raise both legs while lying on the bed to greater than 90 degrees, credit controller strength and upper extremity strength 5 out of 5 and symmetric bilaterally, sensation to light touch is intact throughout the bilateral upper and lower extremities) Neuro Extensive - Mental Status: Alert, Oriented x3 Psychiatric: Labile Mood - Patient Data Lab Results Last 24 hrs: Laboratory Results - last 24 hr 04/18/21 04/18/21 04/18/21 Range/Units 17:10 17:20 17:20 WBC 7.0 (3.0-10.3) x10-3/uL RBC 4.44 (3.60-5.20) x10(6)uL Hgb 14.2 (11.4-15.5) g/dL Hct 43.1 (34.2-48.2) % MCV 97.0 (76.7-100.5) fL MCH 32.1 (23.9-33.9) pg MCHC 33.0 (31.9-34.8) g/dL RDW 14.6 (12.3-16.5) % Plt Count 184 (151-488) x10(3)uL MPV 7.5 (7.1-12.4) fL Neut % (Auto) 55.8 (30.8-76.2) % Lymph % (Auto) 35.8 (18.4-52.1) % Wilson % (Auto) 6.8 (4.4-15.7) % Eos % (Auto) 1.0 (0.6-8.1) % Baso % (Auto) 0.6 (0.2-1.5) % Neut # (Auto) 3.9 (1.5-6.3) x10-3/uL Lymph # (Auto) 2.5 (1.0-4.4) x10-3/uL Wilson # (Auto) 0.5 (0.3-1.0) x10-3/uL Eos # (Auto) 0.1 (0.0-0.8) x10-3/uL Baso # (Auto) 0.0 (0.0-0.1) x10-3/uL PT 12.1 H (9.0-11.1) sec INR 1.13 (1.00-1.24) APTT 24.6 (24.4-33.2) SECONDS Sodium (135-145) mmol/L Potassium (3.5-5.3) mmol/L Chloride (100-110) mmol/L Carbon Dioxide (21-32) mmol/L BUN (7-18) mg/dL Creatinine (0.55-1.02) mg/dL Est Cr Clr Drug Dosing Estimated GFR (MDRD) (>60) BUN/Creatinine Ratio (9-20) Glucose (80-116) mg/dL Calcium (8.6-10.2) mg/dL Total Bilirubin (0.1-1.3) mg/dL AST (5-25) IU/L ALT (12-36) U/L Alkaline Phosphatase (56-112) IU/L Creatine Kinase (60-160) IU/L Troponin I (4.0-60.3) pg/mL Total Protein (6.0-8.0) g/dL Albumin (3.2-4.6) g/dL Globulin g/dL Albumin/Globulin Ratio SARS-CoV-2 RNA (SHANDA) Negative (NEGATIVE) 04/18/21 04/18/21 Range/Units 17:20 17:20 WBC (3.0-10.3) x10-3/uL RBC (3.60-5.20) x10(6)uL Hgb (11.4-15.5) g/dL Hct (34.2-48.2) % MCV (76.7-100.5) fL MCH (23.9-33.9) pg MCHC (31.9-34.8) g/dL RDW (12.3-16.5) % Plt Count (151-488) x10(3)uL MPV (7.1-12.4) fL Neut % (Auto) (30.8-76.2) % Lymph % (Auto) (18.4-52.1) % Wilson % (Auto) (4.4-15.7) % Eos % (Auto) (0.6-8.1) % Baso % (Auto) (0.2-1.5) % Neut # (Auto) (1.5-6.3) x10-3/uL Lymph # (Auto) (1.0-4.4) x10-3/uL Wilson # (Auto) (0.3-1.0) x10-3/uL Eos # (Auto) (0.0-0.8) x10-3/uL Baso # (Auto) (0.0-0.1) x10-3/uL PT (9.0-11.1) sec INR (1.00-1.24) APTT (24.4-33.2) SECONDS Sodium 138 (135-145) mmol/L Potassium 3.5 (3.5-5.3) mmol/L Chloride 103 D (100-110) mmol/L Carbon Dioxide 27 (21-32) mmol/L BUN 12 (7-18) mg/dL Creatinine 1.0 (0.55-1.02) mg/dL Est Cr Clr Drug Dosing TNP Estimated GFR (MDRD) 56 L (>60) BUN/Creatinine Ratio 12.0 (9-20) Glucose 119 H (80-116) mg/dL Calcium 8.4 L (8.6-10.2) mg/dL Total Bilirubin 0.4 (0.1-1.3) mg/dL AST 31 H (5-25) IU/L ALT 36 D (12-36) U/L Alkaline Phosphatase 213 H (56-112) IU/L Creatine Kinase 261 H (60-160) IU/L Troponin I 8.7 (4.0-60.3) pg/mL Total Protein 6.7 (6.0-8.0) g/dL Albumin 3.1 L (3.2-4.6) g/dL Globulin 3.6 g/dL Albumin/Globulin Ratio 0.9 SARS-CoV-2 RNA (SHANDA) (NEGATIVE) Result Diagrams: 04/18/21 17:20 04/18/21 17:20 Sepsis Event Note - Evaluation Sepsis Screening Result: No Definite Risk - Focused Exam Vital Signs: Vital Signs Temp Pulse Resp BP BP Pulse Ox 04/19/21 04:00 36.1 C 60 16 168/60 H 99 04/19/21 00:00 36.6 C 60 18 154/69 H 97 - Problem List (1) Fall SNOMED Code(s): 4991539, 862048143 ICD Code: W19.XXXA - UNSPECIFIED FALL, INITIAL ENCOUNTER Status: Acute Current Visit: Yes (2) Thoracic vertebral fracture SNOMED Code(s): 252674867 ICD Code: S22.009A - UNSP FRACTURE OF UNSP THORACIC VERTEBRA, INIT FOR CLOS FX Status: Acute Current Visit: Yes (3) Anxiety SNOMED Code(s): 30583911 ICD Code: F41.9 - ANXIETY DISORDER, UNSPECIFIED Status: Acute Current Visit: No (4) Generalized weakness SNOMED Code(s): 07593803 ICD Code: R53.1 - WEAKNESS Status: Acute Current Visit: No (5) Head ache SNOMED Code(s): 64416920 ICD Code: R51 - HEADACHE * DO NOT USE * Status: Acute Current Visit: No (6) Minor head injury SNOMED Code(s): 395136623 ICD Code: S09.90XA - UNSPECIFIED INJURY OF HEAD, INITIAL ENCOUNTER Status: Acute Current Visit: No Problem List Initiated/Reviewed/Updated: Yes Orders Last 24hrs: Active Orders 24 hr Category Date Time Status Patient Status [ADT] Routine ADT 04/18/21 19:33 Active Oxygen Therapy [RC] PRN Care 04/18/21 19:33 Active Pulse Oximetry [RC] PRN Care 04/18/21 19:36 Active RT Post Treatment Assessment [RC] Click to Edit Care 04/18/21 19:40 Active Up With Assistance [RC] ASDIRECTED Care 04/18/21 19:33 Active VTE/DVT Education [RC] Per Unit Routine Care 04/18/21 19:33 Active Vital Signs [RC] 08,12,16,20,00,04 Care 04/18/21 19:33 Active Heart Healthy Diet [DIET] Diet 04/19/21 Breakfast Active BASIC METABOLIC PANEL,BMP [CHEM] AM Lab 04/19/21 05:11 Ordered CBC WITH AUTO DIFF [HEME] AM Lab 04/19/21 05:11 Ordered Acetaminophen [Tylenol Extra Strength] Med 04/18/21 19:38 Pending 500 mg PO Q6H PRN Acetaminophen/oxyCODONE [Percocet 325-5 MG] Med 04/18/21 21:33 Active 2 tab PO Q4H PRN Albuterol [Ventolin HFA] Med 04/18/21 19:38 Pending DOSE gm INH Q4H PRN Carboxymethylcellulose Sodium [Artificial Tears] Med 04/18/21 21:00 Pending 1 drop EYEBOTH BID Clotrimazole [Clotrimazole 1%] Med 04/18/21 19:38 Pending DOSE gm TOP BID PRN Docusate Sodium/Sennosides [Senna Plus] Med 04/18/21 19:33 Active 1 tab PO BID PRN Docusate Sodium/Sennosides [Senna Plus] Med 04/18/21 21:00 Pending DOSE tab PO BID Hydrocortisone [Cortef] Med 04/19/21 07:30 Active 10 mg PO ACBREAKFAST Hydrocortisone [Cortef] Med 04/19/21 11:30 Active 15 mg PO ACLUNCH Lacosamide [Vimpat] Med 04/18/21 21:00 Active 200 mg PO BID Levothyroxine Med 04/19/21 08:00 Active 150 mcg PO DAILY@0600 Mag Hydrox/Al Hydrox/Simeth [Kenia-Lanta] Med 04/18/21 19:38 Pending 10 ml PO ASDIRECTED PRN Meclizine [Antivert] Med 04/18/21 19:38 Pending 12.5 mg PO TID PRN Methyl Salicylate/Menthol [Icy Hot Stick] Med 04/18/21 19:38 Pending 1 applic TOP DAILY PRN Morphine Med 04/18/21 21:32 Active 2 mg IVPUSH Q2H PRN Multivit-Min/FA/Lycopene/Lut [Senior Tabs] Med 04/19/21 09:00 Pending 1 tab PO DAILY Non-Formulary Medication [NF Drug] Med 04/19/21 21:00 Active 22.5 each PO BEDTIME Non-Formulary Medication [NF Drug] Med 04/19/21 09:00 Active 7.5 each PO DAILY Ondansetron [Zofran] Med 04/18/21 19:33 Active 4 mg IV Q4H PRN Sodium Chloride 0.9% [Saline Flush] Med 04/18/21 16:16 Active 10 ml FLUSH ASDIRECTED PRN Topiramate [Topamax] Med 04/18/21 21:00 Active 50 mg PO BEDTIME Triamcinolone Acetonide [Triamcinolone Acetonide 0.1% Med 04/18/21 19:38 Pending Oint] DOSE gm TOP BID PRN atorvaSTATin [Lipitor] Med 04/18/21 21:00 Active 10 mg PO BEDTIME carBAMazepine [TEGretol XR] Med 04/18/21 21:00 Active 200 mg PO BID dronabinoL [Marinol] Med 04/19/21 08:30 Active 5 mg PO TIDAC levETIRAcetam [Levetiracetam] Med 04/18/21 21:00 Active 750 mg PO BID Saline Lock Insert [OM.PC] Routine Oth 04/18/21 16:16 Ordered Resuscitation Status Routine Resus Stat 04/18/21 19:33 Ordered Medication Orders Acetaminophen (Acetaminophen 500 Mg Tab) 500 mg PO Q6H PRN PRN Reason: fever/pain Albuterol (Albuterol 8 Gm Inhaler) gm INH Q4H PRN PRN Reason: SOB, wheezing, cough Atorvastatin Calcium (Atorvastatin 10 Mg Tab *Ptom*) 10 mg PO BEDTIME EPI Clotrimazole (Clotrimazole 1% Crm 15 Gm Tube) gm TOP BID PRN PRN Reason: Rash Dronabinol (Dronabinol 2.5 Mg Cap) 5 mg PO TIDAC [facility] Levothyroxine Sodium (Levothyroxine 150 Mcg Tab *Ptom*) 150 mcg PO DAILY@0600 [facility] Meclizine HCl (Meclizine 12.5 Mg Tab) 12.5 mg PO TID PRN PRN Reason: vertigo/dizziness Morphine Sulfate (Morphine 2 Mg/Ml Syringe) 2 mg IVPUSH Q2H PRN PRN Reason: Pain Aripiprazole ( (Abilify) 15mg) 7.5 each PO DAILY [facility] Carbamazepine [ Tegretol Xr] 200 Mg Tab *Ptom* 200 mg PO BID [facility] Non-Formulary Medication (Carboxymethylcellulose Sodium [Artificial Tears]) 1 drop EYEBOTH BID [facility] Hydrocortisone [ Cortef] 10 Mg Tablet *Ptom* 15 mg PO ACLUNCH EPI Hydrocortisone [ (Cortef] 10 Mg Tablet) 10 mg PO ACBREAKFAST EPI Lacosamide [Vimpat] (200 Mg Tablet *Ptom*) 200 mg PO BID EPI Levetiracetam 750 Mg (Tablet *Ptom*) 750 mg PO BID EPI Non-Formulary Medication (Mag Hydrox/Al Hydrox/Simeth [Kenia-Lanta]) 10 ml PO ASDIRECTED PRN PRN Reason: GI distress Non-Formulary Medication (Methyl Salicylate/Menthol [Icy Hot Stick]) 1 applic TOP DAILY PRN PRN Reason: NECK PAIN Mirtazapine 45mg * (Ptom*) 22.5 each PO BEDTIME EPI Non-Formulary Medication (Multivit-Min/Fa/Lycopene/Lut [Senior Tabs]) 1 tab PO DAILY EPI Topiramate [Topamax] (50 Mg Tablet *Ptom*) 50 mg PO BEDTIME EPI Ondansetron HCl (Ondansetron 4 Mg/2 Ml Sdv) 4 mg IV Q4H PRN PRN Reason: Nausea/Vomiting Oxycodone/Acetaminophen (Acetaminophen/Oxycodone 325-5 Mg Tab) 2 tab PO Q4H PRN PRN Reason: Pain Last Admin: 04/19/21 00:50 Dose: 2 tab Documented by: REBECCA Senna/Docusate Sodium (Docusate Sodium/Sennosides 50-8.6 Mg Tab) 1 tab PO BID PRN PRN Reason: Constipation Senna/Docusate Sodium (Docusate Sodium/Sennosides 50-8.6 Mg Tab) tab PO BID [facility] Sodium Chloride (Sodium Chloride 0.9% 10 Ml Syringe) 10 ml FLUSH ASDIRECTED PRN PRN Reason: Keep Vein Open Triamcinolone Acetonide (Triamcinolone Acetonide 0.1% Oint 15 Gm Tube) gm TOP BID PRN PRN Reason: affected area Assessment/Plan Comment:: This note will serve as a discharge summary. 1. Patient admitted for observation after being assessed in the emergency department. Patient apparently fell at her [place] [facility] and landed on her upper back and the back of her head. CT shows likely acute fractures of T1 and T3 with likely chronic fractures of other thoracic vertebrae as listed. Patient also has significant chronic degenerative disease throughout the cervical, thoracic, lumbar spine. 2. Patient was placed in a thoracic back support/brace. Patient will be discharged back to her [place] [facility] for further PT/OT evaluation and treatment.
[2021-04-19 10:05] VITALS: BP 170/68
[2021-04-19] MEDS ORDERED: MIRTAZAPINE 45 MG PO SCH (21:00)
== END 2021-04-19 10:40 ==
LOC: FB.ED 16:14 → FB.MS 19:33
PROVIDERS: ADMIT Emergency Medicine; ATTEND Student in an Organized Health Care Education/Training Program
DX: S22.009A Unspecified fracture of unspecified thoracic vertebra, initial encounter for closed fracture (principal); S09.90XA Unspecified injury of head, initial encounter; R42 Dizziness and giddiness; E53.8 Deficiency of other specified B group vitamins; N18.30 Chronic kidney disease, stage 3 unspecified; E55.9 Vitamin D deficiency, unspecified; M81.0 Age-related osteoporosis without current pathological fracture; E11.22 Type 2 diabetes mellitus with diabetic chronic kidney disease; E11.40 Type 2 diabetes mellitus with diabetic neuropathy, unspecified; G43.909 Migraine, unspecified, not intractable, without status migrainosus; E03.9 Hypothyroidism, unspecified; E66.9 Obesity, unspecified; F41.9 Anxiety disorder, unspecified; Z20.822 Contact with and (suspected) exposure to COVID-19; Z88.8 Allergy status to other drugs, medicaments and biological substances; Z91.040 Latex allergy status; Z91.012 Allergy to eggs; Z79.899 Other long term (current) drug therapy; Z98.890 Other specified postprocedural states; Z90.49 Acquired absence of other specified parts of digestive tract; Z68.29 Body mass index [BMI] 29.0-29.9, adult
CPT/HCPCS: 36410; 36415; 70450; 72125; 72128; 72131; 80053; 82550; 84484; 85025; 85610; 85730; A9270; G0378; U0002; 99285; 99285-25

== ENCOUNTER 2021-05-04 10:13 | Emergency (ER) | payer MEDICARE, MEDICAID ==
[2021-05-04] MEDS ORDERED: Aspirin 81 MG Tab.Chew PO STA (10:18)
[2021-05-04] MEDS ORDERED: Sodium Chloride 0.9% 10 ML Syringe FLUSH PRN (10:18)
[2021-05-04] MEDS ORDERED: Nitroglycerin 0.4 MG Tab.SL SL PRN (10:18)
[2021-05-04] MEDS ORDERED: Morphine 4 MG/ML VIAL IVPUSH STA (10:18)
[2021-05-04] MEDS ORDERED: Morphine 2 MG/ML SYRINGE IVPUSH ONE ×2 (11:04→13:56)
[2021-05-04] MEDS ORDERED: Sodium Chloride 0.9% 1,000 ML IV SCH (11:15)
[2021-05-04] MEDS ORDERED: Iopamidol 755 Mg/ML 75 ML Bottle IV ONE (11:48)
[2021-05-04 19:44] VITALS: BP 146/89; PULSE 109
== END 2021-05-04 14:55 ==
LOC: FB.ED 10:13
DX: A08.4 Viral intestinal infection, unspecified (principal); E11.22 Type 2 diabetes mellitus with diabetic chronic kidney disease; N18.30 Chronic kidney disease, stage 3 unspecified; D63.1 Anemia in chronic kidney disease; E03.9 Hypothyroidism, unspecified; E66.9 Obesity, unspecified; Z68.27 Body mass index [BMI] 27.0-27.9, adult; Z91.040 Latex allergy status; Z88.1 Allergy status to other antibiotic agents; Z88.5 Allergy status to narcotic agent; Z91.012 Allergy to eggs; Z91.048 Other nonmedicinal substance allergy status; Z88.8 Allergy status to other drugs, medicaments and biological substances; Z79.899 Other long term (current) drug therapy
CPT/HCPCS: 36415; 74177; 80053; 81001; 82150; 83690; 84484; 85025; 96374; 99284; J2270; J7030; Q9967; 93005

== ENCOUNTER 2021-05-23 19:15 | Emergency (ER) | payer OTHER, MEDICARE, MEDICAID ==
[2021-05-23 19:31] VITALS: BP 120/55; PULSE 52
== END 2021-05-23 21:10 ==
LOC: FB.ED 19:15
DX: S09.90XA Unspecified injury of head, initial encounter (principal); R42 Dizziness and giddiness; M19.90 Unspecified osteoarthritis, unspecified site; E11.40 Type 2 diabetes mellitus with diabetic neuropathy, unspecified; G40.909 Epilepsy, unspecified, not intractable, without status epilepticus; E03.9 Hypothyroidism, unspecified; E66.9 Obesity, unspecified; Z68.28 Body mass index [BMI] 28.0-28.9, adult; Z88.8 Allergy status to other drugs, medicaments and biological substances; Z88.1 Allergy status to other antibiotic agents; Z88.6 Allergy status to analgesic agent; Z91.040 Latex allergy status; Z91.048 Other nonmedicinal substance allergy status; Z91.012 Allergy to eggs; Z79.899 Other long term (current) drug therapy; W18.30XA Fall on same level, unspecified, initial encounter
CPT/HCPCS: 99283

== ENCOUNTER 2021-11-27 14:44 | Emergency (ER) | payer MEDICARE, MEDICAID ==
[2021-11-27] MEDS: Aspirin 81 MG Tab.Chew PO ONE (15:09)
[2021-11-27 15:16] LABS: ESTIMATED GFR 55 mL/min (>60)
[2021-11-27] MEDS: Azithromycin 500 MG Tab PO ONE (16:53)
[2021-11-27] MEDS: Amoxicillin/Clavulanate K 875-125 MG Tab PO ONE (16:53)
[2021-11-27 18:19] VITALS: BP 139/68; PULSE 79
== END 2021-11-27 17:45 | disposition home or self-care (01) ==
LOC: FB.ED 14:44
DX: J18.9 Pneumonia, unspecified organism (principal); E11.65 Type 2 diabetes mellitus with hyperglycemia; F41.9 Anxiety disorder, unspecified; E11.22 Type 2 diabetes mellitus with diabetic chronic kidney disease; N18.9 Chronic kidney disease, unspecified; E03.9 Hypothyroidism, unspecified; E66.9 Obesity, unspecified; Z68.30 Body mass index [BMI] 30.0-30.9, adult; Z91.012 Allergy to eggs; Z91.040 Latex allergy status; Z88.5 Allergy status to narcotic agent; Z88.1 Allergy status to other antibiotic agents; Z88.8 Allergy status to other drugs, medicaments and biological substances; Z79.899 Other long term (current) drug therapy; Z20.822 Contact with and (suspected) exposure to COVID-19
CPT/HCPCS: 36415; 71046; 80053; 81001; 83880; 84484; 85025; 93005; 93010; 99283; 99285; A9270; U0002

== ENCOUNTER 2022-01-31 01:38 | Emergency (ER) | payer MEDICARE, MEDICAID ==
[2022-01-31] MEDS ORDERED: Ketorolac 30 MG/ML SDV IM ONE (01:52)
[2022-01-31] MEDS ORDERED: hydrOXYzine HCl 50 MG/ML SDV IM ONE (01:52)
[2022-01-31 03:49] VITALS: PULSE 68
[2022-01-31 04:20] VITALS: BP 205/88
== END 2022-01-31 02:45 | disposition home or self-care (01) ==
LOC: FB.ED 01:38
DX: R51.9 Headache, unspecified (principal); E11.9 Type 2 diabetes mellitus without complications; E66.9 Obesity, unspecified; Z68.31 Body mass index [BMI] 31.0-31.9, adult; Z90.49 Acquired absence of other specified parts of digestive tract; Z88.8 Allergy status to other drugs, medicaments and biological substances; Z88.1 Allergy status to other antibiotic agents; Z91.040 Latex allergy status; Z91.048 Other nonmedicinal substance allergy status; Z91.012 Allergy to eggs; Z79.899 Other long term (current) drug therapy
CPT/HCPCS: 96372; 99284; J1885; J3410

== ENCOUNTER 2022-02-03 02:21 | Emergency (ER) | payer MEDICARE, MEDICAID ==
[2022-02-03] MEDS ORDERED: hydrOXYzine HCl 50 MG/ML SDV IM ONE (02:46)
[2022-02-03] MEDS ORDERED: Ketorolac 30 MG/ML SDV IM ONE (02:46)
[2022-02-03 06:20] VITALS: BP 181/64; PULSE 61
== END 2022-02-03 04:00 ==
LOC: FB.ED 02:21
DX: G40.909 Epilepsy, unspecified, not intractable, without status epilepticus (principal); E11.9 Type 2 diabetes mellitus without complications; E66.9 Obesity, unspecified; Z68.33 Body mass index [BMI] 33.0-33.9, adult; Z88.8 Allergy status to other drugs, medicaments and biological substances; Z88.1 Allergy status to other antibiotic agents; Z91.040 Latex allergy status; Z91.048 Other nonmedicinal substance allergy status; Z91.012 Allergy to eggs; Z79.899 Other long term (current) drug therapy; Z79.84 Long term (current) use of oral hypoglycemic drugs; Z90.49 Acquired absence of other specified parts of digestive tract
CPT/HCPCS: 96372; 99284; J1885; J3410

== ENCOUNTER 2022-02-09 07:30 | Day surgery (SDC) | payer MEDICARE, MEDICAID ==
[~2022-02-09 07:30] MED LIST: Lactated Ringers 1,000 ML IV SCH; Sodium Chloride 0.9% 10 ML Syringe FLUSH PRN
[2022-02-09 08:07] VITALS: BP 123/61; PULSE 61
[2022-02-09] MEDS ORDERED: Lidocaine 2% 100 MG/5 ML Syringe IVPUSH ONE (08:50)
[2022-02-09] MEDS ORDERED: Midazolam 1 MG/ML 2 ML SDV IV ONE (08:57)
[2022-02-09] MEDS ORDERED: Propofol 200 MG/20 ML SDV IV ONE (10:45)
== END 2022-02-09 11:02 ==
LOC: FB.SDS 07:30
PROVIDERS: ATTEND Surgery
DX: Z12.11 Encounter for screening for malignant neoplasm of colon (principal); D12.6 Benign neoplasm of colon, unspecified; F41.9 Anxiety disorder, unspecified; D50.9 Iron deficiency anemia, unspecified; D64.9 Anemia, unspecified; F32.A Depression, unspecified; E11.9 Type 2 diabetes mellitus without complications; Z86.010 Personal history of colon polyps; Z79.899 Other long term (current) drug therapy; Z91.040 Latex allergy status; Z79.890 Hormone replacement therapy; Z91.048 Other nonmedicinal substance allergy status; Z88.8 Allergy status to other drugs, medicaments and biological substances; Z91.012 Allergy to eggs; Z88.1 Allergy status to other antibiotic agents; Z88.6 Allergy status to analgesic agent
CPT/HCPCS: 45385; 82947; 88305; J2250; J2704; J7120

== ENCOUNTER 2022-02-22 13:18 | Emergency (ER) | payer MEDICARE, MEDICAID ==
[2022-02-22] MEDS ORDERED: SUMAtriptan 6 MG/0.5 ML SDV SUBCUT ONE (14:01)
[2022-02-22] MEDS ORDERED: Promethazine 25 MG/ML SDV IM ONE (14:01)
[2022-02-22] MEDS ORDERED: Acetaminophen 500 MG Tab PO ONE (14:01)
[2022-02-22 15:13] VITALS: BP 138/63; PULSE 61
== END 2022-02-22 15:20 | disposition home or self-care (01) ==
LOC: FB.ED 13:18
DX: G43.909 Migraine, unspecified, not intractable, without status migrainosus (principal); E11.9 Type 2 diabetes mellitus without complications; E66.9 Obesity, unspecified; Z68.35 Body mass index [BMI] 35.0-35.9, adult; Z88.8 Allergy status to other drugs, medicaments and biological substances; Z88.1 Allergy status to other antibiotic agents; Z91.040 Latex allergy status; Z91.012 Allergy to eggs; Z79.899 Other long term (current) drug therapy; Z79.84 Long term (current) use of oral hypoglycemic drugs; Z90.49 Acquired absence of other specified parts of digestive tract
CPT/HCPCS: 96372; 99283; A9270-GY; J2550; J3030

== ENCOUNTER 2022-04-01 01:23 | Emergency (ER) | payer MEDICARE, MEDICAID ==
[2022-04-01 02:20] LABS: ESTIMATED GFR 45 mL/min (>60)
[2022-04-01] MEDS ORDERED: Ketorolac 30 MG/ML SDV IM ONE (02:56)
[2022-04-01 03:32] VITALS: BP 128/68; PULSE 62
== END 2022-04-01 03:40 ==
LOC: FB.ED 01:23
DX: R10.9 Unspecified abdominal pain (principal); R10.814 Left lower quadrant abdominal tenderness; R10.813 Right lower quadrant abdominal tenderness; E11.22 Type 2 diabetes mellitus with diabetic chronic kidney disease; E11.40 Type 2 diabetes mellitus with diabetic neuropathy, unspecified; N18.30 Chronic kidney disease, stage 3 unspecified; D63.1 Anemia in chronic kidney disease; E03.9 Hypothyroidism, unspecified; E66.9 Obesity, unspecified; Z68.36 Body mass index [BMI] 36.0-36.9, adult; Z88.1 Allergy status to other antibiotic agents; Z88.8 Allergy status to other drugs, medicaments and biological substances; Z91.012 Allergy to eggs; Z91.048 Other nonmedicinal substance allergy status; Z91.040 Latex allergy status; Z79.899 Other long term (current) drug therapy; Z79.84 Long term (current) use of oral hypoglycemic drugs
CPT/HCPCS: 36415; 80048; 81001; 85025; 87086; 96372; 99284; J1885

== ENCOUNTER 2022-04-10 23:09 | Emergency (ER) | payer MEDICARE, MEDICAID ==
[2022-04-10] MEDS ORDERED: LORazepam 1 MG Tab PO ONE (23:10)
[2022-04-10] MEDS ORDERED: Ketorolac 30 MG/ML SDV IM ONE (23:25)
[2022-04-11 05:03] VITALS: BP 162/62; PULSE 70
== END 2022-04-11 00:12 | disposition home or self-care (01) ==
LOC: FB.ED 23:09
DX: G43.909 Migraine, unspecified, not intractable, without status migrainosus (principal); E11.40 Type 2 diabetes mellitus with diabetic neuropathy, unspecified; E66.9 Obesity, unspecified; Z68.36 Body mass index [BMI] 36.0-36.9, adult; Z88.1 Allergy status to other antibiotic agents; Z91.040 Latex allergy status; Z91.048 Other nonmedicinal substance allergy status; Z91.012 Allergy to eggs; Z79.899 Other long term (current) drug therapy; Z79.84 Long term (current) use of oral hypoglycemic drugs; Z90.49 Acquired absence of other specified parts of digestive tract
CPT/HCPCS: 96372; 99283; A9270; J1885

== ENCOUNTER 2022-05-01 21:40 | Emergency (ER) | payer MEDICARE, MEDICAID ==
[2022-05-01] MEDS ORDERED: Ketorolac 30 MG/ML SDV IM ONE (22:17)
[2022-05-01] MEDS ORDERED: hydrOXYzine HCl 50 MG/ML SDV IM ONE (22:17)
[2022-05-01 22:47] LABS: ESTIMATED GFR 41 mL/min (>60)
[2022-05-01 22:54] LABS: ACETAMINOPHEN < 2 ug/mL (<2)
[2022-05-02 02:49] VITALS: BP 146/87; PULSE 66
== END 2022-05-02 00:05 ==
LOC: FB.ED 21:40
DX: F32.9 Major depressive disorder, single episode, unspecified (principal); E11.22 Type 2 diabetes mellitus with diabetic chronic kidney disease; E66.9 Obesity, unspecified; Z68.34 Body mass index [BMI] 34.0-34.9, adult; Z88.1 Allergy status to other antibiotic agents; Z88.8 Allergy status to other drugs, medicaments and biological substances; Z91.040 Latex allergy status; Z91.012 Allergy to eggs; Z91.048 Other nonmedicinal substance allergy status; Z79.899 Other long term (current) drug therapy; Z79.84 Long term (current) use of oral hypoglycemic drugs; Z90.49 Acquired absence of other specified parts of digestive tract; Z87.891 Personal history of nicotine dependence
CPT/HCPCS: 36415; 80053; 80143; 80179; 80307; 85025; 96372; 99285; J1885; J3410

== ENCOUNTER 2022-05-08 02:20 | Emergency (ER) | payer MEDICARE, MEDICAID ==
[2022-05-08] MEDS ORDERED: Insulin Lispro 100 Unit/ML 3 ML KwikPen SUBCUT ONE (02:21)
[2022-05-08] MEDS ORDERED: Sodium Chloride 0.9% 1,000 ML IV ONE ×2 (03:00→07:03)
[2022-05-08 03:42] LABS: ESTIMATED GFR 22 mL/min (>60)
[2022-05-08] MEDS ORDERED: Lactated Ringers 1,000 ML IV ONE (05:06)
[2022-05-08] MEDS ORDERED: Piperacillin/Tazobactam 2.25 GM in Sodium Chloride 0.9% 50 ML IV SCH (06:15)
[2022-05-08] MEDS ORDERED: VANCOmycin 1 GM/200 ML 1 GM in Premix Bag 1 BAG IV SCH (07:00)
[2022-05-08 07:19] VITALS: BP 129/74; PULSE 88
[2022-05-08] MEDS ORDERED: Insulin Lispro 100 Unit/ML 3 ML KwikPen SUBCUT STA (07:27)
[2022-05-08] MEDS ORDERED: 50% Dextrose in Water 50 ML Syringe IVPUSH PRN (07:27)
[2022-05-08] MEDS ORDERED: Glucagon,Human Recombinant 1 MG Vial IM PRN (07:27)
[2022-05-08] MEDS ORDERED: Hydrocortisone Sodium Succinate 100 MG/2 ML SDV IVPUSH STA (07:40)
[2022-05-08] MEDS ORDERED: ARIPiprazole 5 MG Tab PO STA (07:42)
[2022-05-08] MEDS: Sodium Chloride 0.9% 10 ML Syringe FLUSH PRN ×2 (08:00→08:04)
[2022-05-08] MEDS ORDERED: Saccharomyces Boulardii (Probiotic) 250 MG Cap PO SCH (09:00)
== END 2022-05-08 10:12 ==
LOC: FB.ED 02:20
DX: E86.0 Dehydration (principal); G93.40 Encephalopathy, unspecified; E11.22 Type 2 diabetes mellitus with diabetic chronic kidney disease; N18.30 Chronic kidney disease, stage 3 unspecified; N17.9 Acute kidney failure, unspecified; M19.90 Unspecified osteoarthritis, unspecified site; E78.5 Hyperlipidemia, unspecified; E11.40 Type 2 diabetes mellitus with diabetic neuropathy, unspecified; E03.9 Hypothyroidism, unspecified; E66.9 Obesity, unspecified; Z68.36 Body mass index [BMI] 36.0-36.9, adult; Z88.8 Allergy status to other drugs, medicaments and biological substances; Z88.1 Allergy status to other antibiotic agents; Z91.040 Latex allergy status; Z91.048 Other nonmedicinal substance allergy status; Z91.012 Allergy to eggs; Z79.899 Other long term (current) drug therapy; Z79.84 Long term (current) use of oral hypoglycemic drugs
CPT/HCPCS: 36415; 70450; 71250; 74176; 80053; 81001; 82140; 82947; 83605; 84146; 84443; 84484; 85025; 86140; 87040; 93005; 93010; 96361; 96365; 96367; 96375; 99285; 99285-25; A9270-GY; J1720; J1815; J2543; J3370; J3490; J7030; J7120